=== PATIENT | male | born 1940 | race Caucasian/White ===

== ENCOUNTER → 2020-09-05 09:10 | Outpatient (BNVA) | payer OTHER, SELFPAY | PROVIDERS: Visit Provider Urology | DX: N40.1 Benign prostatic hyperplasia with lower urinary tract symptoms (principal); N13.8 Other obstructive and reflux uropathy | CPT/HCPCS: 51798 ==

== ENCOUNTER 2021-02-26 10:12 | Outpatient (REF) | payer OTHER, SELFPAY ==
[2021-02-26 11:48] LABS: PSA,Total (Free>4and<10) 3.66 ng/mL (0.00-4.00)
== END 2021-02-26 10:13 | disposition home or self-care (01) ==
LOC: HO.LAB 10:12
PROVIDERS: Visit Provider Urology
DX: Z12.5 Encounter for screening for malignant neoplasm of prostate (principal); N40.1 Benign prostatic hyperplasia with lower urinary tract symptoms; N13.8 Other obstructive and reflux uropathy
CPT/HCPCS: 36415; 84153

== ENCOUNTER → 2021-03-06 08:19 | Outpatient (BNVA) | payer OTHER, SELFPAY | PROVIDERS: Visit Provider Urology | DX: N40.1 Benign prostatic hyperplasia with lower urinary tract symptoms (principal); N13.8 Other obstructive and reflux uropathy ==

== ENCOUNTER 2021-08-27 08:19 | Outpatient (REF) | payer OTHER, SELFPAY ==
[2021-08-27 09:39] LABS: Prostate Specific Antigen 3.71 ng/mL (<0.05-4.0)
== END 2021-08-27 08:20 | disposition home or self-care (01) ==
LOC: HO.LAB 08:19
PROVIDERS: Visit Provider Urology
DX: Z12.5 Encounter for screening for malignant neoplasm of prostate (principal); N13.8 Other obstructive and reflux uropathy; N40.1 Benign prostatic hyperplasia with lower urinary tract symptoms
CPT/HCPCS: 36415; 84153

== ENCOUNTER 2021-09-03 08:45 | Outpatient (AMB) | payer OTHER, SELFPAY ==
--- NOTE | 2021-09-02 13:56 | A.OFFVIS_ITS ---
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 He is a patient of Dr. Soni. He is seen in the office today for the following urologic conditions. - lower urinary tract symptoms Lower Urinary Tract Symptoms:? Current visit is for?further evaluation of, lower urinary tract symptoms, predominate obstructive symptoms ?- father with prostate cancer.? Prior treatments include? - Had been managed for 3 years with another urologist. Treatment focused on terazosin and oxybutynin. No estimate of prostate size. Had previously been on finasteride but experienced declined libido. ?06/26 , laser procedure.? Prostate Symptom Score?02/26 , Moderate (9-19), Bother 3 ? Symptoms include?02/26 , incomplete emptying, weak stream, nocturia (>2), urgency, and are progressing.? Results from testing include? cystoscopy ?high riding bladder neck (median bar) trabeculations 03/29 ? renal/bladder us ?Yes ? date ?03/27/2017 thickend wall with trabeculations ? PVR ?26 ? prostate size ?50 ? Prior Prostate Score?unknown.? PSA?01/26 1.4 - 08/29 3.7, 03/02 3.6, 08/30 3.7 ? Prostate volume?50+gm.? Testing at next visit will include?bladder scan.? Treatment plan?Continue with surveillance. [facility] Medical History (Updated 07/12/23 @ 11:35 by Adriana Armstrong PA-C) Elevated PSA Erectile dysfunction Feeling of incomplete bladder emptying Hypertension Nocturia Post-void dribbling Weak urinary stream Surgical History Hx of arthroscopy of right knee Hx of colonoscopy Hx of inguinal hernia repair Family History Father Prostate cancer Social History Household Members: Friend(s) Housing: Apartment Alcohol intake: current Alcohol intake frequency: a few times a month Patient Tobacco Use Status: Former Tobacco user e-Cigarette/Vaping Use: Never Used service: No Current occupational status: retired Cognitive needs: No Hearing needs: No Vision needs: No Review of Systems Const Denies chills and Denies fever(s) Card Reports no additional complaints and Denies syncope Resp Denies cough GI Denies abdominal pain and Denies heartburn Reports as per HPI and Denies change in libido Neuro Denies syncope Psych Denies change in libido Endo Denies change in libido Physical Exam Const General: cooperative, healthy appearing, comfortable and no acute distress Orientation/consciousness: patient oriented x3 HEENT Face and sinus: Yes normal facial exam Mouth: moist mucous membranes Neck Neck: Yes normal visual inspection, Yes full ROM and Yes trachea midline Chest Chest palpation & inspection: normal inspection of the chest Resp Effort & Inspection: normal respiratory effort, able to speak in complete sentences and no respiratory distress GI Inspection: Yes normal to inspection Back/Spine/Pelvis Cervical Spine: normal cervical lordosis Thoracic/Lumbar Spine: thoracic and lumbar spine normal to inspection Skin General skin exam: no rashes or lesions noted Neuro General: patient oriented x3, gait normal, tone normal and moves all extremities Extrem General: Yes normal to inspection and Yes capillary refill normal Office Procedures Post Void Residual Post Residual Void Post Void Residual (PVR): 0 [id number] Void Residual by ultrasound Results AMB Urinalysis, Automated UA Leukoctes 0 Pawan/uL Last Edit by KERI Moura on 09/03/21 09:19 UA Nitrite Negative Last Edit by KERI Moura on 09/03/21 09:19 UA Urobilinogen 0.2 mg/dL Last Edit by Unique Gilbert, RMA on 09/03/21 09:1 9 UA Protein 15 mg/dL Last Edit by Unique Gilbert, RMA on 09/03/21 09:19 UA pH 6.0 Last Edit by Unique Gilbert, RMA on 09/03/21 09:19 UA Blood 10 Damien/uL Last Edit by Unique Gilbert, RMA on 09/03/21 09:19 UA Specific [place] 1.020 Last Edit by Unique Gilbert, RMA on 09/03/21 09: 19 UA Ketone Negative Last Edit by Unique Gilbert, RMA on 09/03/21 09:19 UA Bilirubin 0 mg/dL Last Edit by Unique Gilbert, RMA on 09/03/21 09:19 UA Glucose 250 mg/dL Last Edit by Unique Gilbert, RMA on 09/03/21 09:19 Results Reviewed Results Reviewed: Laboratory Last Values Urine pH (Auto) 6.0 09/03/21 09:18 Specific [place] (Auto) 1.020 09/03/21 09:18 Urine Protein (Auto) 15 mg/dL 09/03/21 09:18 Glucose (UA)(Auto) 250 mg/dL 09/03/21 09:18 Urine Ketones (Auto) Negative 09/03/21 09:18 Urine Blood (Auto) 10 Damien/uL 09/03/21 09:18 Urine Nitrite (Auto) Negative 09/03/21 09:18 Urine Bilirubin (Auto) 0 mg/dL 09/03/21 09:18 Urine Urobilinogen (Auto) 0.2 mg/dL 09/03/21 09:18 Leukocyte Esterase (Auto) 0 Pawan/uL 09/03/21 09:18 Assessment & Plan Assessment & Plan (1) Elevated PSA: Code(s): R97.20 - Elevated prostate specific antigen [PSA] (2) BPH loc w urin obs/LUTS: Code(s): N40.1 - Benign prostatic hyperplasia with lower urinary tract symptoms Plan Twelve month follow-up Orders: Orders AMB Urinalysis Automated 09/03/21 Z13.9 - Encounter for screening, unspecified, N40.1 - Benign prostatic hyperplasia with lower urinary tract symptoms AMB Post Void Residual by ultrasound 09/03/21 N40.1 - Benign prostatic hyperplasia with lower urinary tract symptoms Patient Instructions: Imaging studies, laboratory and physical exam results were discussed and reviewed in detail. No major barriers to patient understanding were identified. An opportunity to ask questions regarding the treatment plan was provided. All questions were answered. The patient expressed understanding and agreement with the above treatment plan. The patient is aware they should contact our office by phone for worsening of their current condition or the appearance of new urologic symptoms. Compliance is encouraged with any medications and followup testing that is ordered. It is a privilege to participate in the urologic care of your patient. If you have any questions or concerns regarding treatment for the above conditions, or other urologic issues, please do not hesitate to contact me. The office telephone contact is [phone]. This note is constructed using voice recognition software. While every effort has been made to ensure accuracy toys inspector errors may have been included. Yours sincerely, Dr Osvaldo De La Rosa MD, NADIA [facility] - Urology Providers of Expert, Compassionate Care for the Genitourinary System Coding Level of Care Code Est Pt Level 4 (72545) Diagnoses Elevated PSA R97.20 BPH loc w urin obs/LUTS N40.1 CPT Codes Post Residual Void - PVR CPT Code: 14343-Yuhh Void Residual by ultrasound ([id number])
== END 2021-09-03 09:48 | disposition home or self-care (01) ==
LOC: HO.HUSH 08:45
PROVIDERS: Visit Provider Urology
DX: R97.20 Elevated prostate specific antigen [PSA] (principal); N40.1 Benign prostatic hyperplasia with lower urinary tract symptoms
CPT/HCPCS: 99213

== ENCOUNTER → 2021-09-03 08:45 | Outpatient (BNVA) | payer OTHER, SELFPAY | PROVIDERS: Visit Provider Urology | DX: N40.1 Benign prostatic hyperplasia with lower urinary tract symptoms (principal); R97.20 Elevated prostate specific antigen [PSA] | CPT/HCPCS: 51798 ==

== ENCOUNTER 2021-11-25 09:32 | Outpatient (REF) | payer OTHER, SELFPAY ==
[2021-11-25 11:25] LABS: MANUAL DIFF FLAG NO
[2021-11-25 11:48] LABS: Basophils Percent Auto 0.4 % (0-2); Eosinophils Absolute Auto 0.1 X10*3/uL (0.0-0.4); Eosinophils Percent Auto 1.2 % (0-4); Hematocrit 38.5 % (42.0-52.0); Hemoglobin 12.9 g/dl (14.0-18.0); Imm Gran Abs Auto 0.03 X10*3/uL (0.00-0.03); Imm Gran Pct Auto 0.3 % (0.0-0.4); Lymphocytes Absolute Auto 1.9 X10*3/uL (1.2-4.9); Lymphocytes Percent Auto 21.4 % (20-40); Mean Corpuscular HGB Conc 33.5 g/dl (31.0-36.0); Mean Corpuscular Volume 92.5 fL (80.0-98.0); Mean Platelet Volume 10.3 fL (9.4-12.4); Monocytes Absolute Auto 0.8 X10*3/uL (0.1-1.2); Neutrophils Absolute Auto 6.1 x10*3/uL (2.0-8.3); Neutrophils Percent Auto 67.7 % (45-73); Platelet Count 216 X10*3/uL (160-400); Red Blood Count 4.16 X10*6/uL (4.60-5.80); Red Cell Distribution Width 12.9 % (11.0-16.0); White Blood Count 9.1 X10*3/uL (4.8-10.8)
[2021-11-25 12:25] LABS: TSH reflex Free T4 0.77 uIU/mL (0.32-4.0)
[2021-11-25 12:50] LABS: Alanine Aminotransferase 22 U/L (0-40); Albumin Level 4.5 g/dL (3.5-5.0); Alkaline Phosphatase 76 U/L (39-117); Anion Gap 16 (12-20); Aspartate Amino Transferase 28 U/L (5-37); Blood Urea Nitrogen 19 mg/dL (9-16); Calcium 9.4 mg/dL (8.4-10.2); Carbon Dioxide 21 mmol/L (22-29); Chloride 103 mmol/L (96-108); Cholesterol 138 mg/dL; Estimated Glomerular Filt Rate 53; Glucose Fasting 125 mg/dL (60-99); HDL Cholesterol 61 mg/dL; LDL Cholesterol Calculated 62 mg/dl; Potassium 4.4 mmol/L (3.3-5.1); Sodium 136 mmol/L (135-145); Total Protein 7.5 g/dL (6.5-8.0); Triglycerides 77 mg/dL
[2021-11-25 12:51] LABS: Estimated Average Glucose 114 mg/dL; Hemoglobin A1c % 5.6 %
[2021-12-03 12:23] LABS: PSA, Ultra Sensitive 4.78 ng/mL
== END 2021-11-25 09:33 | disposition home or self-care (01) ==
LOC: HO.WFDLDS 09:32
PROVIDERS: Visit Provider Nurse Practitioner Family
DX: Z12.5 Encounter for screening for malignant neoplasm of prostate (principal); N40.1 Benign prostatic hyperplasia with lower urinary tract symptoms; R53.83 Other fatigue
CPT/HCPCS: 36415; 80053; 80061; 83036; 84153; 84443; 85025

== ENCOUNTER 2021-11-29 07:38 | Outpatient (REF) | payer OTHER, SELFPAY ==
[2021-11-29 11:36] LABS: Immature Retic Fraction 3.2 % (2.3-13.4); Retic HGB Equivalent 36.7 pg (30.0-35.0); Reticulocyte Percent 1.1 % (0.5-1.8); Reticulocytes Absolute 0.045 X10*6/uL (0.026-0.095)
[2021-11-29 12:23] LABS: Iron 122 mcg/dL (45-160); Percent Iron Saturation 43 % (15-50); Total Iron Binding Capacity 282 mcg/dL (228-428); Unsaturated Iron Binding 160 ug/dL
[2021-11-29 12:32] LABS: Ferritin 352 ng/mL (20-250)
== END 2021-11-29 07:39 | disposition home or self-care (01) ==
LOC: HO.WFDLDS 07:38
PROVIDERS: Visit Provider Nurse Practitioner Family
DX: R53.83 Other fatigue (principal)
CPT/HCPCS: 36415; 82728; 83540; 85045

== ENCOUNTER 2021-12-02 07:35 | Outpatient (REF) | payer OTHER, SELFPAY ==
[2021-12-02 12:33] LABS: Vitamin D 25-OH Total 31.5 ng/mL (>30)
[2021-12-02 12:42] LABS: Folate 11.9 ng/mL (> or = 4.0); Vitamin B12 392 pg/mL (200-900)
== END 2021-12-02 07:36 | disposition home or self-care (01) ==
LOC: HO.WFDLDS 07:35
PROVIDERS: Visit Provider Nurse Practitioner Family
DX: R53.83 Other fatigue (principal); D64.9 Anemia, unspecified
CPT/HCPCS: 36415; 82306; 82607; 82746

== ENCOUNTER → 2022-02-05 10:26 | Outpatient (BNVA) | payer OTHER, SELFPAY | PROVIDERS: PCP Nurse Practitioner Family; Referring Provider Nurse Practitioner Family; Visit Provider Internal Medicine | DX: R53.83 Other fatigue (principal) ==

== ENCOUNTER → 2022-02-17 10:10 | Outpatient (REF) | payer OTHER, SELFPAY ==
--- NOTE | 2022-02-17 10:18 | HM_ITS ---
* Total monitoring time about 3 days. * Underlying rhythm is atrial fibrillation. Average ventricular rate 63/Min. Range 41 to 115/Min. * Rare PVCs, minimal burden. * No significant pauses or AV blocks. * Shortness of breath, tiredness correlates with atrial fibrillation. MTDD
[2022-02-17 11:02] LABS: Hemoglobin 14.2 g/dl (14.0-18.0); Mean Corpuscular HGB Conc 32.3 g/dl (31.0-36.0); Mean Corpuscular Hemoglobin 29.8 pg (27.0-33.0); Mean Corpuscular Volume 92.4 fL (80.0-98.0); Mean Platelet Volume 9.8 fL (9.4-12.4); Platelet Count 216 X10*3/uL (160-400); Red Blood Count 4.76 X10*6/uL (4.60-5.80); Red Cell Distribution Width 13.3 % (11.0-16.0); White Blood Count 9.2 X10*3/uL (4.8-10.8)
[2022-02-17 11:36] LABS: Alanine Aminotransferase 19 U/L (0-40); Albumin Level 4.6 g/dL (3.5-5.0); Alkaline Phosphatase 68 U/L (39-117); Anion Gap 15 (12-20); Aspartate Amino Transferase 24 U/L (5-37); Bilirubin Total 1.5 mg/dL (0.0-1.0); Blood Urea Nitrogen 17 mg/dL (9-16); Calcium 9.6 mg/dL (8.4-10.2); Carbon Dioxide 22 mmol/L (22-29); Chloride 104 mmol/L (96-108); Cholesterol 153 mg/dL; Estimated Glomerular Filt Rate 50; Glucose Fasting 115 mg/dL (60-99); HDL Cholesterol 59 mg/dL; LDL Cholesterol Calculated 75 mg/dl; Potassium 4.9 mmol/L (3.3-5.1); Sodium 136 mmol/L (135-145); Total Protein 7.6 g/dL (6.5-8.0); Triglycerides 99 mg/dL
== END ==
LOC: HO.CARD 10:10
PROVIDERS: Nurse Practitioner Family; Visit Provider Internal Medicine
DX: R00.2 Palpitations (principal); R53.83 Other fatigue; D64.9 Anemia, unspecified; E78.00 Pure hypercholesterolemia, unspecified; I10 Essential (primary) hypertension
CPT/HCPCS: 36415; 80053; 80061; 85027; 93242

== ENCOUNTER 2022-04-29 15:09 | Outpatient (REF) | payer OTHER, SELFPAY ==
[2022-04-30 13:11] LABS: Influenza A PCR NEGATIVE (Negative); Influenza B PCR NEGATIVE (Negative); Resp Syncy Virus RNA Qual PCR NEGATIVE (Negative); SARS COV2 PCR INHOUSE NEGATIVE (Negative)
== END 2022-04-29 15:10 | disposition home or self-care (01) ==
LOC: HO.LNP 15:09
PROVIDERS: Visit Provider Nurse Practitioner Family
DX: Z20.822 Contact with and (suspected) exposure to COVID-19 (principal); R05.9 Cough, unspecified
CPT/HCPCS: 0241U

== ENCOUNTER → 2022-05-06 12:17 | Outpatient (BNVA) | payer OTHER, SELFPAY | PROVIDERS: PCP Nurse Practitioner Family; Visit Provider Internal Medicine | DX: I48.19 Other persistent atrial fibrillation (principal); I10 Essential (primary) hypertension; R94.39 Abnormal result of other cardiovascular function study; R53.83 Other fatigue | CPT/HCPCS: 93005 ==

== ENCOUNTER 2022-07-02 08:12 | Outpatient (REF) | payer OTHER, SELFPAY ==
[2022-07-02 11:40] LABS: Glucose Fasting 109 mg/dL (60-99)
== END 2022-07-02 08:13 | disposition home or self-care (01) ==
LOC: HO.WFDLDS 08:12
PROVIDERS: Visit Provider Nurse Practitioner Family
DX: R73.01 Impaired fasting glucose (principal)
CPT/HCPCS: 36415; 82947

== ENCOUNTER → 2022-07-29 11:36 | Outpatient (BNVA) | payer OTHER, SELFPAY | PROVIDERS: PCP Nurse Practitioner Family; Visit Provider Physician Assistant ==

== ENCOUNTER 2022-07-29 12:18 | Outpatient (REF) | payer OTHER, SELFPAY ==
[2022-07-29 14:06] LABS: MANUAL DIFF FLAG NO
[2022-07-29 14:22] LABS: Basophils Percent Auto 0.5 % (0-2); Eosinophils Absolute Auto 0.1 X10*3/uL (0.0-0.4); Hematocrit 40.1 % (42.0-52.0); Hemoglobin 13.2 g/dl (14.0-18.0); Imm Gran Abs Auto 0.03 X10*3/uL (0.00-0.03); Imm Gran Pct Auto 0.4 % (0.0-0.4); Lymphocytes Absolute Auto 2.1 X10*3/uL (1.2-4.9); Lymphocytes Percent Auto 26.7 % (20-40); Mean Corpuscular HGB Conc 32.9 g/dl (31.0-36.0); Mean Corpuscular Hemoglobin 30.7 pg (27.0-33.0); Mean Corpuscular Volume 93.3 fL (80.0-98.0); Mean Platelet Volume 10.1 fL (9.4-12.4); Monocytes Absolute Auto 0.8 X10*3/uL (0.1-1.2); Monocytes Percent Auto 10.6 % (2-11); Neutrophils Absolute Auto 4.7 x10*3/uL (2.0-8.3); Neutrophils Percent Auto 60.8 % (45-73); Platelet Count 185 X10*3/uL (160-400); White Blood Count 7.7 X10*3/uL (4.8-10.8)
[2022-07-29 15:00] LABS: Erythrocyte Sedimentation Rate 3 MM/HR (0-15)
[2022-07-29 16:00] LABS: Alanine Aminotransferase 24 U/L (0-40); Albumin Level 4.3 g/dL (3.5-5.0); Alkaline Phosphatase 75 U/L (39-117); Anion Gap 11 (12-20); Aspartate Amino Transferase 26 U/L (5-37); Bilirubin Total 1.6 mg/dL (0.0-1.0); Blood Urea Nitrogen 16 mg/dL (9-16); Calcium 9.6 mg/dL (8.4-10.2); Carbon Dioxide 24 mmol/L (22-29); Chloride 106 mmol/L (96-108); Estimated Glomerular Filt Rate > 60; Glucose Random 96 mg/dL (60-115); Sodium 136 mmol/L (135-145); Total Protein 7.3 g/dL (6.5-8.0)
[2022-07-29 16:01] LABS: PSA,Total (Free>4and<10) 5.05 ng/mL (0.00-4.00); Thyroid Stimulating Hormone 1.12 uIU/mL (0.32-4.0)
[2022-07-31 14:08] LABS: Transglutaminase IgA <1.0 U/mL
[2022-08-03 14:33] LABS: Endomysial IgA Antibody Negative (Negative)
[2022-08-04 12:09] LABS: Free Prostate Spec Ag 1.7 ng/mL; Percent Free Prostate Spec Ag 37 % (calc) (>25); Prostate Specific Ag Total 4.6 ng/mL (< OR = 4.0)
== END 2022-07-29 12:19 | disposition home or self-care (01) ==
LOC: HO.WFDLDS 12:18
PROVIDERS: Visit Provider Physician Assistant
DX: Z12.5 Encounter for screening for malignant neoplasm of prostate (principal); K52.9 Noninfective gastroenteritis and colitis, unspecified; R19.8 Other specified symptoms and signs involving the digestive system and abdomen; N40.1 Benign prostatic hyperplasia with lower urinary tract symptoms
CPT/HCPCS: 36415; 80053; 84153; 84154; 84443; 85025; 85652; 86140; 86231; 86364

== ENCOUNTER 2022-08-19 08:25 | Outpatient (AMB) | payer OTHER, SELFPAY ==
--- NOTE | 2022-08-19 08:50 | MHC.OFFVIS ---
Intake Vital Signs 08/19/22 08:53 Height 5 ft 8 in Weight 156 lb BMI 23.7 BP 152/82 H Blood Pressure Location Lt brachial Position Sitting Pulse 82 Intake Visit Reasons: Follow up Intake Note: Patient follow up for lab results. Patient denies any GI issues. 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 Accompanied by: Self / Same As Patient Allergies tamsulosin Allergy (Unknown, Verified 08/19/22 10:48) dizziness, weakness Medication List - Last Reconciled 08/19/22 by Adriana Armstrong PA-C amlodipine 10 mg PO DAILY apixaban (Eliquis) 5 mg PO BID atorvastatin 80 mg PO DAILY 30 days cholecalciferol (vitamin D3) 50 mcg PO DAILY donepezil 10 mg PO DAILY irbesartan 300 mg PO DAILY metoprolol succinate ER 100 mg PO DAILY psyllium husk (Metamucil) 1 tbsp PO BID 30 days HPI HPI Comments History of Present Illness Details An 82 y/o male seen with diarrhea- he has had excellent response to metamucil- n o GI complaints Appetite is good however eats less due to the heat and humidity He is anxious todays- he has been out of medication for 10 days- Taking eliquis for about 6 months- he never wants to stop- he is having some difficulty with cost Reviewed labs- mild elevation in PSA, normocytic anemia Seeing pcp today No nausea, vomiting, diarrhea, abdominal pain, hematemesis, fever or chills PFSH Medical History (Updated 08/20/22 @ 11:35 by Adriana Armstrong PA-C) Elevated PSA Erectile dysfunction Feeling of incomplete bladder emptying Hypertension Nocturia Post-void dribbling Weak urinary stream Surgical History Hx of arthroscopy of right knee Hx of colonoscopy Hx of inguinal hernia repair Family History Father Prostate cancer Social History Household Members: Friend(s) Housing: Apartment Alcohol intake: current Alcohol intake frequency: a few times a month Patient Tobacco Use Status: Former Tobacco user e-Cigarette/Vaping Use: Never Used service: No Current occupational status: retired Cognitive needs: No Hearing needs: No Vision needs: No Review of Systems Const All systems reviewed & are unremarkable except as noted in HPI and below Card Denies chest pain, Denies chest pain at rest, Denies irregular heart rhythm and Denies dyspnea Resp Denies dyspnea GI Denies abdominal pain, Denies heartburn and Denies diarrhea Physical Exam Vital Signs: Last Vital Signs Pulse 82 08/19/22 08:53 BP 152/82 H 08/19/22 08:53 BMI result Body Mass Index 23.7 Const General: cooperative, healthy appearing and no acute distress Orientation/consciousness: patient oriented x3 Limitations: no limitations Eyes Sclerae: sclerae normal Resp Effort & Inspection: normal respiratory effort and able to speak in complete sentences Auscultation: clear to auscultation bilaterally Cardio Rate: regular rate Rhythm: regular rhythm Heart sounds: S1 normal heart sound present and S2 normal heart sound present GI Palpation (GI): Soft to palpation and nontender Auscultation: normal bowel sounds Neuro General: patient oriented x3 Psych Appearance: grossly normal and well kempt Mental Status: mental status grossly normal Speech and movement: Normal speech and movement present and Clear speech present Affect: normal affect Attitude: cooperative Thought process: Normal thought process present Thought content: Normal thought content present Insight: Good insight present (Psych) Judgement: Good judgement present (Psych) Results AMB Hemoglobin A1c AMB Hemoglobin A1c 6.0 % Last Edit by Elizabeth Castillo MA on 08/19/22 11:29 Results Reviewed Results Reviewed: Labs- anemia- psa elevated Assessment & Plan Assessment & Plan (1) Frequent loose stools: Comment: Metamucil daily much improved-has been a non issue No other associated sx Discuss colonoscopy is unclear when he had 1 last, however he has been on Eliquis to maybe 6 months unclear with that as well- Typically for colonoscopy we discontinue Eliquis for 2 days due to anticipation of polypectomy ETC At this point we will hold off Had having some difficulty with cost for Eliquis reviewed this with him-so that he would qualify likely for coupon -for reduced cost reduced cost (10 dollars) Reviewed labs normocytic anemia, however has follow-up to be with PCP for hypertension, as well as Urology for mildly elevated PSA- Code(s): R19.7 - Diarrhea, unspecified Plan Hold off on colonoscopy at this point Diarrhea resolved Eliquis Patient Instructions: Very pleasant, alert 82-year-old male seen initially with diarrhea that has resolved- Continue Metamucil- Will see PCP today further discuss medications as well plan of care Encouraged to call with any questions or concerns- Coding Level of Care Code Est Pt Level 3 (51407) Diagnoses Frequent loose stools R19.7 Time Spent (min) 30
[2022-08-19 08:53] VITALS: BP 152/82; PULSE 82; BMI 23.7
== END 2022-08-19 09:40 | disposition home or self-care (01) ==
PROVIDERS: PCP Nurse Practitioner Family; Visit Provider Physician Assistant
DX: R19.7 Diarrhea, unspecified (principal)
CPT/HCPCS: 99213

== ENCOUNTER → 2022-08-19 08:25 | Outpatient (BNVA) | payer OTHER, SELFPAY | PROVIDERS: PCP Nurse Practitioner Family; Visit Provider Physician Assistant ==

== ENCOUNTER 2022-08-19 10:02 | Outpatient (AMB) | payer OTHER, SELFPAY ==
[2022-08-19 10:07] VITALS: BP 128/80; PULSE 68; RESP 12; TEMP 36.4; O2SAT 99; BMI 24.0
--- NOTE | 2022-08-19 10:07 | A.OFFPC_ITS ---
Vital Signs 08/19/22 10:07 Height 5 ft 8 in Weight 158 lb BMI 24.0 BP 128/80 Blood Pressure Location Lt brachial Position Sitting Respiration 12 Pulse 68 Pulse Source Pulse Oximeter Temp 97.6 F Temp Source Temporal Artery Scan Pulse Oximetry (%) 99 Oxygen Delivery Method Room Air Intake Visit Reasons: f/u GI symptoms Intake Note: Patient will need refills on Atorvastatin , Donepezil, and patient stated that he has been without his amlodipine, a new script will need to be sent over due t o previous prescriber passing away. 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 Accompanied by: Self / Same As Patient Allergies tamsulosin Allergy (Unknown, Verified 08/19/22 10:48) dizziness, weakness Medication List - Last Reconciled 08/19/22 by George Spring CNP amlodipine 10 mg PO DAILY apixaban (Eliquis) 5 mg PO BID atorvastatin 80 mg PO DAILY 30 days cholecalciferol (vitamin D3) 50 mcg PO DAILY donepezil 10 mg PO DAILY irbesartan 300 mg PO DAILY metoprolol succinate ER 100 mg PO DAILY psyllium husk (Metamucil) 1 tbsp PO BID 30 days Tobacco use date assessed: 04/04/22 Fall risk assessment: 2 + Falls in past year Last assessed Fall Risk: 08/19/22 Dental Screening Dental Screen Date: 08/19/22 Did you have a dental visit in the last 12 months?: Yes Did you have a dental problem in the last 6 months where you did not have access to dental care?: No Was dental information given to patient?: Patient has dentist HPI HPI Comments History of Present Illness Details 82-year-old male presents for change in bowel and decreased appetite for which he was evaluated and treated over a month ago He notes that his bowel symptoms have resolved with Metamucil He was also evaluated by Gastroenterology His reports continued decreased appetite No acute symptoms today His recent PSA is slightly elevated, 4.6. He notes he has an appointment with urology later this month. He requests refills of Donepezil, amlodipine, and atorvastatin [facility] Medical History (Updated 08/19/22 @ 11:34 by George Spring CNP) Elevated PSA Erectile dysfunction Feeling of incomplete bladder emptying Hypertension Nocturia Post-void dribbling Weak urinary stream Surgical History Hx of arthroscopy of right knee Hx of colonoscopy Hx of inguinal hernia repair Family History Father Prostate cancer Social History Household Members: Friend(s) Housing: Apartment Alcohol intake: current Alcohol intake frequency: a few times a month Patient Tobacco Use Status: Former Tobacco user e-Cigarette/Vaping Use: Never Used service: No Current occupational status: retired Cognitive needs: No Hearing needs: No Vision needs: No Review of Systems Const Details: Const Denies chills, Denies fatigue, Denies fever(s), Denies headache(s) and Denies weakness ENT Denies dizziness and Denies headache(s) Card Denies chest pain, Denies lightheadedness, Denies dyspnea and Denies other (Palpitations) Resp Denies cough, Denies dyspnea, Denies wheezing and Denies other ( shortness of breath) GI Denies abdominal pain, Denies melena, Denies hematochezia, Denies change in bowel habits, Denies dyspepsia and Denies nausea Denies hematuria and Denies dysuria Musc Denies abnormal gait, Denies myalgias, Denies arthralgias, Denies numbness and Denies tingling Skin/Breast Denies rash, Denies unusual bruising and Denies wounds Neuro Denies abnormal gait, Denies dizziness, Denies headache(s), Denies memory loss, Denies numbness, Denies Sensory deficit (Neuro), Denies tingling and Denies weakness Psych Denies anxiety and Denies depression Endo Denies fatigue Aller/Immun Denies wheezing Physical exam (Primary Care) Vital Signs: Last Vital Signs Temp 97.6 F 08/19/22 10:07 Pulse 68 08/19/22 10:07 Resp 12 08/19/22 10:07 BP 128/80 08/19/22 10:07 Pulse Ox 99 08/19/22 10:07 Oxygen Delivery Method Room Air 08/19/22 10:07 BMI result Body Mass Index 24.0 Tobacco/Smoking Status: Tobacco use Status Tobacco use date assessed 04/04/22 08/19/22 10:21 Patient Tobacco Use Status Former Tobacco user 07/11/23 10:21 e-Cigarette/Vaping Use Never Used 08/19/22 10:21 Const Other: General: no acute distress and well developed Nutritional Appearance: well nourished Orientation/consciousness: patient oriented x3 [facility] Head: Yes normocephalic and Yes atraumatic Eyes General: appearance normal, both eyes and all related structures Pupils: Equal, round and reactive pupils present EOM: EOMs intact bilaterally Resp Effort & Inspection: normal respiratory effort Auscultation: clear to auscultation bilaterally Cardio Rate: regular rate Rhythm: regular rhythm Heart sounds: S1 normal heart sound present, S2 normal heart sound present, no gallops, no murmurs and no rubs GI Palpation (GI): No Abdominal aortic bruit present, Soft to palpation, nontender, No hepatosplenomegaly present and No Rebound tenderness present Auscultation: normal bowel sounds General: Yes no CVA tenderness Back/Spine/Pelvis Back: no CVA tenderness Cervical Spine: cervical ROM normal and No Cervical spine tenderness Thoracic/Lumbar Spine: thoraco-lumbar ROM normal, No pain with thoraco-lumbar ROM, No thoracic spinal tenderness and No lumbar spinal tenderness Extrem General: Yes normal to inspection, No edema and No calf tenderness Skin General: warm and dry. Normal skin color. Normal skin turgor Lesions: no lesions Rashes: no rashes Trauma: no lacerations or abrasions Wounds: no wounds Nails: normal Neuro General: patient oriented x3, gait normal and no focal neuro deficit Cranial nerves: Yes Equal, round and reactive pupils present Cognition (Neuro): normal cognition Gait exam (Neuro): Normal gait present Motor exam (neuro): 5/5 motor strength present throughout Sensory Exam: No Sensory deficit (Neuro) Psych Affect: normal affect Results AMB Hemoglobin A1c AMB Hemoglobin A1c 6.0 % Last Edit by Elizabeth Castillo MA on 08/19/22 11:29 Assessment and Plan Assessment & Plan (1) Frequent loose stools: Comment: Two weeks loose stool, Metamucil daily much improved No other associated sx Code(s): R19.7 - Diarrhea, unspecified Plan: Resolved Continue to take Metamucil once a twice a day as needed Adequate hydration encouraged Follow-up with symptoms or concerns Verbalized understanding and agreed with treatment plan. (2) Hypertension: Code(s): I10 - Essential (primary) hypertension Plan: His blood pressure is controlled, 128/80, within goal of less than 140/90 Continue to take antihypertensives as prescribed Low-sodium diet encouraged Follow-up in 3 months or return sooner with symptoms or concerns Verbalized understanding and agreed with treatment plan. (3) Prediabetes: Code(s): R73.03 - Prediabetes Plan: Fasting blood sugar has been elevated twice A1c is 6.0% today ADA diet and routine exercise encouraged Follow-up with concerns or symptoms Verbalized understanding and agreed with treatment plan. (4) Elevated PSA: Code(s): R97.20 - Elevated prostate specific antigen [PSA] Plan: His recent PSA is slightly elevated, 4.6. He notes he has an appointment with urology later this month Follow-up with urology as planned Return with symptoms or concerns Verbalized understanding and agreed with treatment plan. (5) Colon cancer screening: Code(s): Z12.11 - Encounter for screening for malignant neoplasm of colon Plan: He reports history of normal colonoscopy. However he does not recall his last colonoscopy He notes that he was informed by GI his Eliquis would have to be held for a couple of weeks in order to have colonoscopy Cologuard ordered Follow-up with symptoms or concerns Verbalized understanding and agreed with treatment plan. Orders: Referrals Cologuard Test Z12.11 - Encounter for screening for malignant neoplasm of colon Medications: Changed From donepezil 10 mg PO DAILY To donepezil 10 mg PO DAILY 30 tabs 3RF 30 days From amlodipine 10 mg PO DAILY To amlodipine 10 mg PO DAILY 30 tabs 3RF 30 days Coding Level of Care Code Est Pt Level 3 (75994) Diagnoses Frequent loose stools R19.7 Hypertension I10 Prediabetes R73.03 Elevated PSA R97.20 Colon cancer screening Z12.11 Time Spent (min) 25
== END 2022-08-19 11:34 | disposition home or self-care (01) ==
PROVIDERS: PCP Nurse Practitioner Family; Visit Provider Nurse Practitioner Family
DX: R19.7 Diarrhea, unspecified (principal); I10 Essential (primary) hypertension; R73.03 Prediabetes; R97.20 Elevated prostate specific antigen [PSA]; Z12.11 Encounter for screening for malignant neoplasm of colon
CPT/HCPCS: 99213

== ENCOUNTER 2022-09-02 08:18 | Outpatient (REF) | payer OTHER, SELFPAY ==
[2022-09-02 17:50] LABS: Urine Cytology See Pathology rpt
== END 2022-09-02 08:19 | disposition home or self-care (01) ==
LOC: HO.LAB 08:18
PROVIDERS: Visit Provider Urology
DX: R31.29 Other microscopic hematuria (principal); R97.20 Elevated prostate specific antigen [PSA]
CPT/HCPCS: 51798; 88112

== ENCOUNTER 2022-09-02 08:18 | Outpatient (AMB) | payer OTHER, SELFPAY ==
--- NOTE | 2022-09-02 08:30 | MHC.OFFVIS ---
Intake Intake Visit Reasons: 1 year follow up PVR Intake Note: Patient is present for PVR/ Urology Med:none Antibiotic Allergy: None Blood Thinner: Eliquis PVR: 0ML Allergies tamsulosin Allergy (Unknown, Verified 09/02/22 08:30) dizziness, weakness HPI HPI Comments History of Present Illness Details Olman SALGADO is a very pleasant male. He is a patient of Dr. Soni. He is seen in the office today for the following urologic conditions. - lower urinary tract symptoms Borderline PSA BRETT 3+ normal 6 month follow-up Lower Urinary Tract Symptoms:? Current visit is for?further evaluation of, lower urinary tract symptoms, predominate obstructive symptoms ?- father with prostate cancer.? Prior treatments include? - Had been managed for 3 years with another urologist. Treatment focused on terazosin and oxybutynin. No estimate of prostate size. Had previously been on finasteride but experienced declined libido. ?06/26 , laser procedure.? Prostate Symptom Score?02/26 , Moderate (9-19), Bother 3 ? Symptoms include?02/26 , incomplete emptying, weak stream, nocturia (>2), urgency, and are progressing.? Results from testing include? cystoscopy ?high riding bladder neck (median bar) trabeculations 03/29 ? renal/bladder us ?Yes ? date ?03/27/2017 thickend wall with trabeculations ? PVR ?26 ? prostate size ?50 ? Prior Prostate Score?unknown.? PSA?01/26 1.4 - 08/29 3.7, 03/02 3.6, 08/30 3.7, 08/01 4.6 F 37% ? Prostate volume?50+gm.? Testing at next visit will include?bladder scan.? Treatment plan?Continue with surveillance. [facility] Medical History (Updated 09/02/22 @ 09:01 by Osvaldo De La Rosa MD) Elevated PSA Erectile dysfunction Feeling of incomplete bladder emptying Hypertension Nocturia Post-void dribbling Weak urinary stream Surgical History Hx of arthroscopy of right knee Hx of colonoscopy Hx of inguinal hernia repair Family History Father Prostate cancer Social History Household Members: Friend(s) Housing: Apartment Alcohol intake: current Alcohol intake frequency: a few times a month Patient Tobacco Use Status: Former Tobacco user e-Cigarette/Vaping Use: Never Used service: No Current occupational status: retired Cognitive needs: No Hearing needs: No Vision needs: No Review of Systems Const Denies chills and Denies fever(s) Card Reports no additional complaints and Denies syncope Resp Denies cough GI Denies abdominal pain and Denies heartburn Reports as per HPI and Denies change in libido Neuro Denies syncope Psych Denies change in libido Endo Denies change in libido Physical Exam Const General: cooperative, healthy appearing, comfortable and no acute distress Orientation/consciousness: patient oriented x3 HEENT Face and sinus: Yes normal facial exam Mouth: moist mucous membranes Neck Neck: Yes normal visual inspection, Yes full ROM and Yes trachea midline Chest Chest palpation & inspection: normal inspection of the chest Resp Effort & Inspection: normal respiratory effort, able to speak in complete sentences and no respiratory distress GI Inspection: Yes normal to inspection Rectal Exam - Male: Yes normal sphincter tone and Yes prostate normal Male General Exam: Yes normal external exam Penis: normal penis and circumcised Meatus: meatus normal Scrotum: scrotum normal Testes: Testes normal Back/Spine/Pelvis Cervical Spine: normal cervical lordosis Thoracic/Lumbar Spine: thoracic and lumbar spine normal to inspection Skin General skin exam: no rashes or lesions noted Neuro General: patient oriented x3, gait normal, tone normal and moves all extremities Extrem General: Yes normal to inspection and Yes capillary refill normal Office Procedures Post Void Residual Post Residual Void Post Void Residual (PVR): 0 [id number]-[id number] Void Residual by ultrasound Results AMB Urinalysis, Automated UA Leukoctes 0 Pawan/uL Last Edit by KERI Moura on 09/02/22 08:45 UA Nitrite Negative Last Edit by Unique Gilbert, RMA on 09/02/22 08:45 UA Urobilinogen 1 mg/dL Last Edit by Unique Gilbert, RMA on 09/02/22 08:45 UA Protein 30 mg/dL Last Edit by Unique Gilbert, RMA on 09/02/22 08:45 UA pH 5.5 Last Edit by Unique Gilbert, RMA on 09/02/22 08:45 UA Blood 80 Damien/uL Last Edit by Unique Gilbert, RMA on 09/02/22 08:45 UA Specific [place] 1.020 Last Edit by Unique Gilbert, A on 09/02/22 08:45 UA Ketone Negative Last Edit by Unique Gilbert, RMA on 09/02/22 08:45 UA Bilirubin 0 mg/dL Last Edit by Unique Gilbert, A on 09/02/22 08:45 UA Glucose 0 mg/dL Last Edit by Unique Gilbert, A on 09/02/22 08:45 Results Reviewed Results Reviewed: Laboratory Last Values Urine pH (Auto) 5.5 09/02/22 08:37 Specific [place] (Auto) 1.020 09/02/22 08:37 Urine Protein (Auto) 30 mg/dL 09/02/22 08:37 Glucose (UA)(Auto) 0 mg/dL 09/02/22 08:37 Urine Ketones (Auto) Negative 09/02/22 08:37 Urine Blood (Auto) 80 Damien/uL 09/02/22 08:37 Urine Nitrite (Auto) Negative 09/02/22 08:37 Urine Bilirubin (Auto) 0 mg/dL 09/02/22 08:37 Urine Urobilinogen (Auto) 1 mg/dL 09/02/22 08:37 Leukocyte Esterase (Auto) 0 Paawn/uL 09/02/22 08:37 Assessment & Plan Assessment & Plan (1) Elevated PSA: Code(s): R97.20 - Elevated prostate specific antigen [PSA] Plan Six month follow-up Orders: Orders Urine Cytology Today R31.29 - Other microscopic hematuria AMB Urinalysis Automated Today Z13.9 - Encounter for screening, unspecified AMB Post Void Residual by ultrasound Today N40.1 - Benign prostatic hyperplasia with lower urinary tract symptoms PSA,Total (Free>4and<10) 6 Months R97.20 - Elevated prostate specific antigen [PSA] Patient Instructions: Imaging studies, laboratory and physical exam results were discussed and reviewed in detail. No major barriers to patient understanding were identified. An opportunity to ask questions regarding the treatment plan was provided. All questions were answered. The patient expressed understanding and agreement with the above treatment plan. The patient is aware they should contact our office by phone for worsening of their current condition or the appearance of new urologic symptoms. Compliance is encouraged with any medications and followup testing that is ordered. It is a privilege to participate in the urologic care of your patient. If you have any questions or concerns regarding treatment for the above conditions, or other urologic issues, please do not hesitate to contact me. The office telephone contact is [phone]. This note is constructed using voice recognition software. While every effort has been made to ensure accuracy pin machine operator errors may have been included. Yours sincerely, Dr Osvaldo De La Rosa MD, NADIA [facility] Urology Providers of Expert, Compassionate Care for the Genitourinary System Coding Level of Care Code Est Pt Level 4 (85093) Diagnoses Elevated PSA R97.20 CPT Codes Post Residual Void - PVR CPT Code: 53485-Diib Void Residual by ultrasound ([id number])
== END 2022-09-02 09:01 | disposition home or self-care (01) ==
PROVIDERS: Visit Provider Urology
DX: R97.20 Elevated prostate specific antigen [PSA] (principal)
CPT/HCPCS: 99214

== ENCOUNTER 2022-11-05 07:48 | Outpatient (AMB) | payer OTHER, SELFPAY ==
[2022-11-05 08:17] VITALS: BP 142/62; PULSE 71; BMI 24.4
--- NOTE | 2022-11-05 08:17 | A.OFFVIS_ITS ---
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 Accompanied by: Self / Same As Patient Allergies tamsulosin Allergy (Unknown, Verified 11/05/22 08:19) dizziness, weakness Medication List - Last Reconciled 11/05/22 by Juan Arteaga MD amlodipine 10 mg PO DAILY 30 days apixaban (Eliquis) 5 mg PO BID atorvastatin 80 mg PO DAILY 30 days cholecalciferol (vitamin D3) 50 mcg PO DAILY donepezil 10 mg PO DAILY 30 days irbesartan 300 mg PO DAILY 30 days metoprolol succinate ER 100 mg PO DAILY 30 days psyllium husk (Metamucil) 1 tbsp PO BID 30 days HPI HPI Comments History of Present Illness Details Akil returns for follow-up regarding atrial fibrillation. Main complaint still remains just feeling tired and nonspecific symptoms like lack of energy extra. He also has other symptoms like cough, urinary incontinence, diarrhea among others. Apparently, had a flu recently and symptoms are worse after that. Otherwise, no known coronary disease, myocardial infarction or cardiomyopathy. He was apparently worked up for Parkinson's but according to patient he does not have that diagnosis. [facility] Medical History (Updated 11/05/22 @ 08:37 by Juan Arteaga MD) Hypertension Erectile dysfunction Feeling of incomplete bladder emptying Post-void dribbling Weak urinary stream Nocturia Elevated PSA Surgical History Hx of inguinal hernia repair Hx of arthroscopy of right knee Hx of colonoscopy Family History Father Prostate cancer Social History Household Members: Friend(s) Housing: Apartment Alcohol intake: current Alcohol intake frequency: a few times a month Patient Tobacco Use Status: Former Tobacco user e-Cigarette/Vaping Use: Never Used service: No Current occupational status: retired Cognitive needs: No Hearing needs: No Vision needs: No Review of Systems Const Denies weakness ENT Denies dizziness Card Denies chest pain, Denies chest pain with activity, Denies syncope, Denies rapid heart rate, Denies pedal edema, Denies edema, Denies leg edema, Denies lightheadedness, Denies palpitations, Denies dyspnea, Denies dyspnea on exertion and Denies orthopnea Resp Denies cough, Denies dyspnea and Denies dyspnea on exertion GI Denies hematochezia and Denies change in stool character Musc Denies abnormal gait, Denies muscle cramps, Denies muscle weakness, Denies numbness, Denies radiating pain into limb and Denies tingling Neuro Denies abnormal gait, Denies dizziness, Denies syncope, Denies numbness, Denies tingling and Denies weakness Endo Denies palpitations Physical Exam Vital Signs: Last Vital Signs Pulse 71 11/05/22 08:17 BP 142/62 H 11/05/22 08:17 BMI result Body Mass Index 24.4 Const General: comfortable and no acute distress Orientation/consciousness: patient oriented x3 HEENT Other: Unremarkable Head: Yes normal to inspection Neck Neck: Yes normal visual inspection Chest Chest palpation & inspection: normal inspection of the chest Resp Auscultation: clear to auscultation bilaterally Cardio Palpation: normal PMI Heart sounds: S1 normal heart sound present, S2 normal heart sound present, no gallops, no murmurs and no rubs GI Palpation (GI): Soft to palpation Back/Spine/Pelvis Other: unremarkable Skin General skin exam: no rashes or lesions noted Neuro General: patient oriented x3 Extrem General: Yes normal to inspection Psych Mental Status: mental status grossly normal Office Procedures EKG Details: EKG with atrial fibrillation at a rate of 59/Min cannot exclude old anteroseptal infarct but could be from body habitus and lead placement. [id number], Complete Assessment & Plan Assessment & Plan (1) Persistent atrial fibrillation: Code(s): I48.19 - Other persistent atrial fibrillation (2) Hypertension: Code(s): I10 - Essential (primary) hypertension Qualifiers: Hypertension type: primary hypertension Qualified Code(s): I10 - Essential (primary) hypertension (3) Fatigue: Code(s): R53.83 - Other fatigue Qualifiers: Fatigue type: chronic, unspecified Qualified Code(s): R53.82 - Chronic fatigue, unspecified Plan Cardiac studies reviewed. Per [facility] discharge summary, echocardiogram was done at [facility] and that showed preserved LVEF, no wall motion abnormalities, no valvular issues or other concerns. Myocardial perfusion imaging study from [facility], April 2021 showed inferior perfusion defect thought to be from either diaphragmatic attenuation; could not exclude small area of ischemia. Holter performed here shows rate controlled atrial fibrillation. Today's EKG also shows atrial fibrillation. Previous EKG from [facility] had shown sinus bradycardia at 54/Min. His symptoms are extremely nonspecific and out of proportion to atrial fibrillation. Atrial fibrillation certainly can play some role but doubt if it is the entire picture. Especially concerns like cough and urinary incontinence are certainly not related to atrial fibrillation. There is also concern about cognitive impairment and that may also play some role. We again discussed about cardioversion, but at this time, we decided that we will just cut back on the beta-georgina dosing and see how he does. If continued symptoms, then possibly attempt cardioversion, but more than likely will need use an antiarrhythmic like Multaq or amiodarone which in turn can also cause tiredness and other side effects. Otherwise, blood pressure medication can be continued without changes. Follow-up in 4 months. Medications: New metoprolol succinate ER (Toprol XL) 50 mg PO DAILY 90 tabs 3RF Discontinued metoprolol succinate ER Discontinued Reason: Doctor's Order 100 mg PO DAILY 30 days 30 tabs 3RF Coding Level of Care Code Est Pt Level 4 (58169) Diagnoses Persistent atrial fibrillation I48.19 Primary hypertension I10 Hypertension type: primary hypertension Chronic fatigue R53.82 Fatigue type: chronic, unspecified CPT Codes EKG - CPT: 21009-[id number], Complete ([id number])
== END 2022-11-05 08:41 | disposition home or self-care (01) ==
PROVIDERS: Visit Provider Internal Medicine
DX: I48.19 Other persistent atrial fibrillation (principal); I10 Essential (primary) hypertension; R53.82 Chronic fatigue, unspecified
CPT/HCPCS: 93010; 99214

== ENCOUNTER → 2022-11-05 07:48 | Outpatient (BNVA) | payer OTHER, SELFPAY | PROVIDERS: Visit Provider Internal Medicine | DX: I48.19 Other persistent atrial fibrillation (principal); I10 Essential (primary) hypertension | CPT/HCPCS: 93005 ==

== ENCOUNTER 2022-11-19 08:46 | Outpatient (AMB) | payer OTHER, SELFPAY ==
--- NOTE | 2022-11-19 08:54 | MHC.PC.OV ---
Vital Signs 11/19/22 09:04 11/19/22 09:20 Height 5 ft 8 in Weight 158 lb 2 oz BMI 24.0 BP 116/58 L 124/64 Blood Pressure Location Lt brachial Lt brachial Position Sitting Sitting Respiration 14 Pulse 57 Pulse Source Pulse Oximeter Temp 98.9 F Temp Source Oral Pulse Oximetry (%) 99 Oxygen Delivery Method Room Air Intake Visit Reasons: 3 mos health maintenance Intake Note: Patient reports he is here for a follow up appointment with concerns for constant running nose, cough, and coughing up mucous. 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 Accompanied by: Self / Same As Patient Allergies tamsulosin Allergy (Unknown, Verified 11/19/22 09:07) dizziness, weakness Medication List - Last Reconciled 11/19/22 by George Spring CNP amlodipine 10 mg PO DAILY 90 days apixaban (Eliquis) 5 mg PO BID atorvastatin 80 mg PO DAILY 30 days cholecalciferol (vitamin D3) 50 mcg PO DAILY donepezil 10 mg PO DAILY 30 days irbesartan 300 mg PO DAILY 90 days metoprolol succinate ER (Toprol XL) 50 mg PO DAILY psyllium husk (Metamucil) 1 tbsp PO BID 30 days Tobacco use date assessed: 04/04/22 Fall risk assessment: No Falls in past year Dental Screening Dental Screen Date: 11/19/22 Did you have a dental visit in the last 12 months?: Yes Did you have a dental problem in the last 6 months where you did not have access to dental care?: No Was dental information given to patient?: Patient has dentist HPI HPI Comments History of Present Illness Details 82-year-old male presents for health maintenance. His last office visit was 3 months ago. He has past medical history significant for prediabetes, hypertension, AFib, normochromic normocytic anemia, hypercholesterolemia, elevated PSA, and BPH. Reports persistent runny nose with associated intermittent cough with clear phlegm. He notes that his symptoms have been ongoing for the past 6 months. Has not taking any medication for symptoms. He admits to adequate hydration. He denies fever, chills, body aches, fatigue, or weakness. He denies sick contact. He denies wheezing. He denies smoking cigarette. He is followed by [facility] urology and cardiology. [facility] Medical History Hypertension Erectile dysfunction Feeling of incomplete bladder emptying Post-void dribbling Weak urinary stream Nocturia Elevated PSA Surgical History Hx of inguinal hernia repair Hx of arthroscopy of right knee Hx of colonoscopy Family History Father Prostate cancer Social History Household Members: Friend(s) Housing: Apartment Alcohol intake: current Alcohol intake frequency: a few times a month Patient Tobacco Use Status: Former Tobacco user e-Cigarette/Vaping Use: Never Used service: No Current occupational status: retired Cognitive needs: No Hearing needs: No Vision needs: No Review of Systems Const Details: Const Denies chills, Denies fatigue, Denies fever(s), Denies headache(s) and Denies weakness ENT Reports runny nose, Denies dizziness and Denies headache(s) Card Denies chest pain, Denies lightheadedness, Denies dyspnea and Denies other (Palpitations) Resp Reports cough, Denies dyspnea, Denies wheezing and Denies other ( shortness of breath) GI Denies abdominal pain, Denies melena, Denies hematochezia, Denies change in bowel habits, Denies dyspepsia and Denies nausea Denies hematuria and Denies dysuria Musc Denies abnormal gait, Denies myalgias, Denies arthralgias, Denies numbness and Denies tingling Skin/Breast Denies rash, Denies unusual bruising and Denies wounds Neuro Denies abnormal gait, Denies dizziness, Denies headache(s), Denies memory loss, Denies numbness, Denies Sensory deficit (Neuro), Denies tingling and Denies weakness Psych Denies anxiety, Denies depression, Denies memory loss Endo Denies cold intolerance, Denies fatigue, Denies heat intolerance, Denies polydipsia and Denies polyuria Aller/Immun Denies wheezing Physical exam (Primary Care) Vital Signs: Last Vital Signs Temp 98.9 F 11/19/22 09:04 Pulse 57 11/19/22 09:04 Resp 14 11/19/22 09:04 BP 124/64 11/19/22 09:20 Pulse Ox 99 11/19/22 09:04 Oxygen Delivery Method Room Air 11/19/22 09:04 BMI result Body Mass Index 24.0 Tobacco/Smoking Status: Tobacco use Status Tobacco use date assessed 04/04/22 11/19/22 08:56 Patient Tobacco Use Status Former Tobacco user 11/19/22 08:56 e-Cigarette/Vaping Use Never Used 11/19/22 08:56 Const Other: General: no acute distress and well developed Nutritional Appearance: well nourished Orientation/consciousness: patient oriented x3 HENMT Head: Yes normocephalic and Yes atraumatic Eyes General: appearance normal, both eyes and all related structures Pupils: Equal, round and reactive pupils present EOM: EOMs intact bilaterally Resp Effort & Inspection: normal respiratory effort Auscultation: clear to auscultation bilaterally Cardio Rate: regular rate Rhythm: regular rhythm Heart sounds: S1 normal heart sound present, S2 normal heart sound present, no gallops, no murmurs and no rubs GI Palpation (GI): No Abdominal aortic bruit present, Soft to palpation, nontender, No hepatosplenomegaly present and No Rebound tenderness present Auscultation: normal bowel sounds General: Yes no CVA tenderness Back/Spine/Pelvis Back: no CVA tenderness Cervical Spine: cervical ROM normal and No Cervical spine tenderness Thoracic/Lumbar Spine: thoraco-lumbar ROM normal, No pain with thoraco-lumbar ROM, No thoracic spinal tenderness and No lumbar spinal tenderness Extrem General: Yes normal to inspection, No edema and No calf tenderness Skin General: warm and dry. Normal skin color. Normal skin turgor Lesions: no lesions Rashes: no rashes Trauma: no lacerations or abrasions Wounds: no wounds Nails: normal Neuro General: patient oriented x3, gait normal and no focal neuro deficit Cranial nerves: Yes Equal, round and reactive pupils present Cognition (Neuro): normal cognition Gait exam (Neuro): Normal gait present Sensory Exam: No Sensory deficit (Neuro) Psych Appearance: grossly normal Affect: normal affect Attitude: cooperative Thought process: Normal thought process present Assessment and Plan Assessment & Plan (1) Cough: Code(s): R05.9 - Cough, unspecified Qualifiers: Cough type: chronic Qualified Code(s): R05.3 - Chronic cough Plan: Likely allergies viral though possibly viral. No exam evidence of bacterial infection Viral illness There is no antibiotic medication for viruses.? They must run their course.? Most average 5-7 days but 7-10 days is not uncommon and up to 14 days is still possible.? A cough is often the last symptom to resolve and this can last for weeks in some cases. Rest Hydrate well -? Drink plenty of fluids.? Especially water. Tylenol or ibuprofen for muscle aches, headache, fever/discomfort Zyrtec and benzonatate as prescribed Chest x-ray ordered Return for new or worsening symptoms Verbalized understanding and agreed with treatment plan. (2) Runny nose: Code(s): R09.89 - Other specified symptoms and signs involving the circulatory and respiratory systems Plan: As above (3) Hypertension: Code(s): I10 - Essential (primary) hypertension Qualifiers: Hypertension type: primary hypertension Qualified Code(s): I10 - Essential (primary) hypertension Plan: His blood pressure is 124/64, within goal of less than 130/80. Continue with current treatment regimen. Low sodium diet encouraged. Will continue to monitor. Advise to follow up in 1 month for a complete physical exam or return sooner with symptoms or concerns. Verbalized understanding and agreed with the treatement plan. (4) Kidney disease: Code(s): N28.9 - Disorder of kidney and ureter, unspecified Plan: He was referred to Dr. Guzman, nephrology in March for elevated creatinine and low GFR. However, our medical terminologist was informed today that the patient's last appointment with him was in 2016. He is GFR and creatinine levels normalized in July. Will continue to monitor and referred to Nephrology as needed. Orders: Orders Lipid Panel Today Z00.00 - Encounter for general adult medical examination without abnormal findings XR chest 2V Today Z00.00 - Encounter for general adult medical examination without abnormal findings Basic Metabolic Panel Today Z00.00 - Encounter for general adult medical examination without abnormal findings Medications: New cetirizine (Zyrtec) 10 mg PO DAILY 30 tabs 3RF 30 days benzonatate 200 mg PO BID PRN 20 caps 1RF cough Coding Level of Care Code Est Pt Level 4 (36728) Diagnoses Chronic cough R05.3 Cough type: chronic Runny nose R09.89 Primary hypertension I10 Hypertension type: primary hypertension Kidney disease N28.9
[2022-11-19 09:04] VITALS: BP 116/58; PULSE 57; RESP 14; TEMP 37.2; O2SAT 99; BMI 24.0
[2022-11-19 09:20] VITALS: BP 124/64
== END 2022-11-19 09:40 | disposition home or self-care (01) ==
PROVIDERS: PCP Nurse Practitioner Family; Visit Provider Nurse Practitioner Family
DX: R05.3 Chronic cough (principal); R09.89 Other specified symptoms and signs involving the circulatory and respiratory systems; I10 Essential (primary) hypertension; N28.9 Disorder of kidney and ureter, unspecified
CPT/HCPCS: 99214

== ENCOUNTER 2022-11-24 09:15 | Outpatient (REF) | payer OTHER, SELFPAY ==
--- NOTE | ~2022-11-24 | XR_ITS ---
EXAMINATION: XR CHEST CLINICAL INFORMATION: Encounter for general adult medical exam without abnormality COMPARISON: December 10, 2020 TECHNIQUE: 2 views of the chest were obtained. FINDINGS: There is no gross pneumothorax. Heart size is normal. No pleural effusion. Hazy opacity overlying lower thoracic spine on the lateral view could be related to consolidation/pneumonia or other pathology. Degenerative changes in the thoracic spine. XR/XR chest 2V IMPRESSION: Hazy opacity overlying lower thoracic spine on the lateral view could be related to consolidation/pneumonia or other pathology. Recommend follow-up imaging in 4-6 weeks to confirm resolution and exclude underlying pathology. This study was presented today November 26, 2022 at 6:50 AM for interpretation. PSA staff will provide results to referring provider at this time.
== END 2022-11-24 09:16 | disposition home or self-care (01) ==
LOC: HO.XRAY 09:15
PROVIDERS: PCP Nurse Practitioner Family; Visit Provider Nurse Practitioner Family
DX: Z00.00 Encounter for general adult medical examination without abnormal findings (principal); M47.814 Spondylosis without myelopathy or radiculopathy, thoracic region
CPT/HCPCS: 71046

== ENCOUNTER 2022-12-26 08:10 | Outpatient (AMB) | payer OTHER, SELFPAY ==
--- NOTE | 2022-12-26 08:22 | A.OFFPC_ITS ---
Vital Signs 12/26/22 08:29 12/26/22 09:17 Height 5 ft 8 in Weight 160 lb BMI 24.3 BP 140/60 H 140/70 H Blood Pressure Location Rt brachial Lt brachial Position Sitting Respiration 14 Pulse 76 Pulse Source Pulse Oximeter Pulse Oximetry (%) 99 Oxygen Delivery Method Room Air Intake Visit Reasons: CPE Intake Note: Patient is here for a physical. Patient's last physical was on 11/25/2021. Patient reports he has had a rash all over his body for 6-8 weeks. Patient reports he went to the vein access technician and has tried Rashida and a cream applied twice daily. Patient also followed recommendations for laundry detergent and body soap as well to help clear. Patient reports he is not clearing from this rash, the rash is extremely itchy and he is not sleeping well because of it. Aquatic Performer Required: No Accompanied by: Self / Same As Patient Allergies tamsulosin Allergy (Unknown, Verified 12/26/22 08:34) dizziness, weakness Tobacco use date assessed: 12/26/22 Fall risk assessment: 1 Fall in past year (patient reports sometimes he trips.) Last assessed Fall Risk: 12/26/22 Dental Screening Dental Screen Date: 12/26/22 Did you have a dental visit in the last 12 months?: Yes Did you have a dental problem in the last 6 months where you did not have access to dental care?: No Was dental information given to patient?: Patient has dentist HPI HPI Comments History of Present Illness Details 82-year-old male presents for an extende d physical exam. He has past medical history significant for prediabetes, hypertension, AFib, normochromic normocytic anemia, hypercholesterolemia, elevated PSA, and BPH. He admits to taking his medications as prescribed. He was evaluated by [facility] on 09/25/2022. His symptoms were attributed to mild neural cognitive disorder and underlying anxiety and depression. The following recommendations were made: Treat underlying anxiety and depression; psychotherapy and psychiatry consultation; behavioral Health as a bridge while waiting for psychotherapy and psychiatry provider; speech therapy is also recommended for expressive language difficulties, however, it is noted that it is important to treat underlying anxiety and depression before initiating speech therapy; orthopedic referral is also recommended for walking and bending evaluation which may be related to lower back issues; modify outdoor activities; and increase social and cognitive activities through [facility]. He has a follow-up with neuropsych in 18 months. He reports generalized rash for the past 2-3 months. He was seen my dermatology 9 days ago and was told he has dry skin. He was advised to take rashida daily and use cetaphil lotion. He has been complying with the treatment plan without relief. He notes he was advised to follow up in 2 weeks. Patient notes that i've been anxious my whole life, i'm not depressed. I'm just pissed off about things, the news. He is also worry that his financial analysis consultant who lives may relocate to [place] and he is unsure of where he would live. He notes that neuropsych prescribed escitalopram a month ago. He states that he does not feel an changes of his symptoms on the medication. He reports pain to his lower back with walking and bending. He reports associated shuffling gait. Parkinson's disease was recently ruled out by brenton hummel. His symptoms have been ongoing for the past 6 months and have progressively gotten worse. No tingling, numbness, or loss of sensation. He denies fall, injury, or trauma. [facility] Medical History Hypertension Erectile dysfunction Feeling of incomplete bladder emptying Post-void dribbling Weak urinary stream Nocturia Elevated PSA Surgical History Hx of inguinal hernia repair Hx of arthroscopy of right knee Hx of colonoscopy Family History Father Prostate cancer Social History (Updated 12/26/22 @ 08:40 by Lili Wild CMA) Household Members: Friend(s) Housing: Apartment Alcohol intake: current Alcohol intake frequency: holidays/special occasions only Patient Tobacco Use Status: Former Tobacco user e-Cigarette/Vaping Use: Never Used service: No Current occupational status: retired Current occupational exposures/hazards: No Sexual orientation: Unable to collect Gender identity: Unable to collect Cognitive needs: No Hearing needs: No Vision needs: No Questionnaire PHQ-9 Over the last 2 weeks, how often have you been bothered by any of the following problems? 1. Little interest or pleasure in doing things: not at all 2. Feeling down, depressed, or hopeless: several days 3. Trouble falling or staying asleep, or sleeping too much: nearly every day 4. Feeling tired or having little energy: nearly every day 5. Poor appetite or overeating: nearly every day 6. Feeling bad about yourself - or that you are a failure or have let yourself or your family down: nearly every day 7. Trouble concentrating on things, such as reading the newspaper or watching television: not at all 8. Moving or speaking so slowly that other people could have noticed. Or the opposite - being so fidgety or restless that you have been moving around a lot more than usual: not at all 9. Thoughts that you would be better off or of hurting yourself in some way: not at all Total score: 13 Depression Screening Interpretation: Positive Depression Screening Follow-up: In treatment Depression Screening Done: Yes 47195 - PHQ-9 Billing: Yes Source: Developed by Drs. Domo Mckinley, Cindi Mcfadden, Randy Sotelo and colleagues, with an educational petey from [employer]. Thrive Questionnaire Date Thrive assessed: 12/26/22 I am a: Patient What is your living situation today?: I have a steady place to live Within the past 12 months, did the food you bought not last and you didn't have the money to get more?: Never true Within the past 12 months, did you worry whether your food would run out before you got money to buy more?: Never true Do you have trouble paying for medicines?: No Do you have trouble getting transportation to medical appointments?: No Do you have trouble paying your heating and electricity bill?: No Do you have trouble taking care of your child, family member or friend?: No Do you have trouble with day-to-day activities such as bathing, preparing meals, shopping, managing finances, etc.?: No Are you currently unemployed and looking for a job?: No Are you interested in more education?: No Please select the resources that you would like help with: None Currently or been in a relationship where the following occur: no concerns reported AUDIT C Alcohol Use Questionnaire (AUDIT-C) 1. How often do you have a drink containing alcohol?: Monthly or less 2. How many drinks containing alcohol do you have on a typical day when you are drinking?: 1 or 2 3. How often do you have six or more drinks on one occasion?: Never Total Score: 1 CORBIN-7 AMB Questionnaire CORBIN-7 Date CORBIN - 7 assessed: 12/26/22 Feeling nervous, anxious, or on edge: 0 = Not at all Not being able to stop or control worryin = Nearly every day Worrying too much about different things: 3 = Nearly every day Trouble relaxin = Nearly every day Being so restless that it is hard to sit still: 0 = Not at all Becoming easily annoyed or irritable: 3 = Nearly every day Feeling afraid as if something awful might happen: 3 = Nearly every day Total CORBIN-7 score (0-4 normal; 5-9 mild; 10-14 moderate; 15-21 severe): 15 Source: Developed by Drs. Domo Mckinley, Cindi Mcfadden, Randy Sotelo and colleagues, with an educational petey from [employer]. CORBIN-7 Assessment Billing CORBIN-7 Assessment Tool: CORBIN-7 Assessment 03930 Review of Systems Const Details: Const Denies chills, Denies fatigue, Denies fever(s), Denies headache(s) and Denies weakness ENT Denies dizziness and Denies headache(s) Card Denies chest pain, Denies lightheadedness, Denies dyspnea and Denies other (Palpitations) Resp Denies cough, Denies dyspnea, Denies wheezing and Denies other ( shortness of breath) GI Denies abdominal pain, Denies melena, Denies hematochezia, Denies change in bowel habits, Denies dyspepsia and Denies nausea Denies hematuria and Denies dysuria Musc Reports as per HPI Skin/Breast Reports as per HPI Neuro Denies abnormal gait, Denies dizziness, Denies headache(s), Denies memory loss, Denies numbness, Denies Sensory deficit (Neuro), Denies tingling and Denies weakness Psych Reports anxiety, Denies depression, Denies memory loss Endo Denies cold intolerance, Denies fatigue, Denies heat intolerance, Denies polydipsia and Denies polyuria Aller/Immun Denies wheezing Physical exam (Primary Care) Vital Signs: Last Vital Signs Pulse 76 12/26/22 08:29 Resp 14 12/26/22 08:29 BP 140/70 H 12/26/22 09:17 Pulse Ox 99 12/26/22 08:29 Oxygen Delivery Method Room Air 12/26/22 08:29 BMI result Body Mass Index 24.3 Tobacco/Smoking Status: Tobacco use Status Tobacco use date assessed 12/26/22 12/26/22 08:40 Patient Tobacco Use Status Former Tobacco user 12/26/22 08:40 e-Cigarette/Vaping Use Never Used 12/26/22 08:40 PHQ-9: PHQ-9 Score PHQ-9: Total score 13 12/26/22 09:26 Depression Screening Interpretation: Positive Depression Screening Follow-up: In treatment Thrive Assessment: Date of Thrive Assessment Date Thrive assessed 12/26/22 12/26/22 08:40 Currently or been in a relationship where the following occur: no concerns reported Const Other: General: no acute distress and well developed Nutritional Appearance: well nourished Orientation/consciousness: patient oriented x3 HENMT Head: Yes normocephalic and Yes atraumatic Eyes General: appearance normal, both eyes and all related structures Pupils: Equal, round and reactive pupils present EOM: EOMs intact bilaterally Resp Effort & Inspection: normal respiratory effort Auscultation: clear to auscultation bilaterally Cardio Rate: regular rate Rhythm: regular rhythm Heart sounds: S1 normal heart sound present, S2 normal heart sound present, no gallops, no murmurs and no rubs GI Palpation (GI): No Abdominal aortic bruit present, Soft to palpation, nontender, No hepatosplenomegaly present and No Rebound tenderness present Auscultation: normal bowel sounds General: Yes no CVA tenderness Back/Spine/Pelvis Back: no CVA tenderness Cervical Spine: cervical ROM normal and No Cervical spine tenderness Thoracic/Lumbar Spine: thoraco-lumbar ROM normal, No pain with thoraco-lumbar ROM, No thoracic spinal tenderness and No lumbar spinal tenderness Extrem General: Yes normal to inspection, No edema and No calf tenderness Skin General: warm and dry. Normal skin color. Normal skin turgor Lesions: no lesions Rashes: Slightly red, nonraised rash with scab to the core noted to his trunk and extremities Trauma: no lacerations or abrasions Wounds: no wounds Nails: normal Neuro General: patient oriented x3, gait normal and no focal neuro deficit Cranial nerves: Yes Equal, round and reactive pupils present Cognition (Neuro): normal cognition Gait exam (Neuro): Normal gait present Sensory Exam: No Sensory deficit (Neuro) Psych Appearance: grossly normal Affect: normal affect Attitude: cooperative Thought process: Normal thought process present Assessment and Plan Assessment & Plan (1) Anxiety and depression: Code(s): F41.9 - Anxiety disorder, unspecified; F32.A - Depression, unspecified Plan: PHQ-9 and CORBIN-7 scores revealed moderate depression and severe anxiety respectively Reports history of chronic anxiety. Denies depression Declines psychotherapy or Psychiatry referral He was prescribed escitalopram 5 mg a month ago by neuropsych. His symptoms have not improved Patient advised to stop taking escitalopram due to possible QT prolongation when taken with donepezil and given the his history of AFib Sertraline ordered. Take as prescribed Routine exercise encouraged Follow-up in 1 month or return sooner with worsening or new symptoms Verbalized understanding and agreed with treatment plan. Extended physical exam deferred at this time. May be able to get physical done next month. (2) Hypertension: Code(s): I10 - Essential (primary) hypertension Qualifiers: Hypertension type: primary hypertension Qualified Code(s): I10 - Essential (primary) hypertension Plan: Resting blood pressure is 140/70, above goal of less than 130/80 He notes that he has not taking his antihypertensive today; this may explain his current blood pressure reading Anxiety may also be a contributing factor Continue with current treatment regimen Low-sodium diet encouraged Follow-up in 1 month Verbalized understanding and agreed with treatment plan. (3) Generalized rash: Code(s): R21 - Rash and other nonspecific skin eruption Plan: Reports generalized rash which was evaluated by Dermatology 9 days ago Current treatment, Rashida and cetaphil lotion not providing relief Slightly red, nonraised rash with scab to the core noted to his trunk and extremities; likely an allergic response. Patient notably scratching his body for significant period Prednisone ordered. Take as prescribed Continue to take Rashida and use Cetaphil lotion as instructed Follow-up with Dermatology as planned Return with worsening or new symptoms Verbalized understanding and agreed with treatment plan. (4) Chronic low back pain: Code(s): M54.50 - Low back pain, unspecified; G89.29 - Other chronic pain Plan: Reports chronic back pain with bending forward and walking; associated shuffling gait Parkinson's disease was recently ruled out by neuropsych Referred to Ortho May take Tylenol as needed for pain or discomfort Warm/cool compresses encouraged Return with worsening or new symptoms Verbalized understanding and agreed with treatment plan. Orders: Referrals Orthopedics Referral G89.29 - Other chronic pain, M54.50 - Low back pain, unspecified Medications: New prednisone 40 mg (2 x 20 mg) PO DAILY 5 days 10 tabs 0RF sertraline 25 mg PO DAILY 30 days 30 tabs 2RF Coding Level of Care Code Est Pt Level 4 (58447) Diagnoses Anxiety and depression F41.9; F32.A Primary hypertension I10 Hypertension type: primary hypertension Generalized rash R21 Chronic low back pain M54.50; G89.29 Additional Codes CORBIN-7 Assessment Billing - CORBIN-7 Assessment Tool: CORBIN-7 Assessment 41411 ([id number])
[2022-12-26 08:29] VITALS: BP 140/60; PULSE 76; RESP 14; O2SAT 99; BMI 24.3
[2022-12-26 09:17] VITALS: BP 140/70
== END 2022-12-26 09:42 | disposition home or self-care (01) ==
PROVIDERS: PCP Nurse Practitioner Family; Visit Provider Nurse Practitioner Family
DX: I10 Essential (primary) hypertension (principal); R21 Rash and other nonspecific skin eruption; M54.50 Low back pain, unspecified; G89.29 Other chronic pain; F41.9 Anxiety disorder, unspecified; F32.A Depression, unspecified
CPT/HCPCS: 96127; 99214

== ENCOUNTER 2023-01-12 09:59 | Outpatient (REF) | payer OTHER, SELFPAY ==
[2023-01-12 10:09] LABS: MANUAL DIFF FLAG NO
[2023-01-12 10:32] LABS: Basophils Percent Auto 0.1 % (0-2); Eosinophils Percent Auto 0.1 % (0-4); Hematocrit 38.7 % (42.0-52.0); Hemoglobin 12.7 g/dl (14.0-18.0); Imm Gran Abs Auto 0.05 X10*3/uL (0.00-0.03); Imm Gran Pct Auto 0.4 % (0.0-0.4); Lymphocytes Absolute Auto 1.6 X10*3/uL (1.2-4.9); Lymphocytes Percent Auto 12.6 % (20-40); Mean Corpuscular HGB Conc 32.8 g/dl (31.0-36.0); Mean Corpuscular Volume 94.4 fL (80.0-98.0); Monocytes Absolute Auto 1.3 X10*3/uL (0.1-1.2); Monocytes Percent Auto 10.1 % (2-11); Neutrophils Absolute Auto 9.6 x10*3/uL (2.0-8.3); Neutrophils Percent Auto 76.7 % (45-73); Platelet Count 180 X10*3/uL (160-400); Red Cell Distribution Width 14.5 % (11.0-16.0); White Blood Count 12.5 X10*3/uL (4.8-10.8)
[2023-01-12 11:02] LABS: Alanine Aminotransferase 37 U/L (0-40); Alkaline Phosphatase 88 U/L (39-117); Anion Gap 11 (12-20); Aspartate Amino Transferase 31 U/L (5-37); Bilirubin Total 0.7 mg/dL (0.0-1.0); Blood Urea Nitrogen 30 mg/dL (9-16); Calcium 9.2 mg/dL (8.4-10.2); Carbon Dioxide 22 mmol/L (22-29); Chloride 110 mmol/L (96-108); Estimated Glomerular Filt Rate > 60; Glucose Random 127 mg/dL (60-115); Sodium 139 mmol/L (135-145); Total Protein 7.2 g/dL (6.5-8.0)
== END 2023-01-12 10:00 | disposition home or self-care (01) ==
LOC: HO.LAB 09:59
PROVIDERS: PCP Nurse Practitioner Family; Visit Provider Dermatology
DX: T88.7XXA Unspecified adverse effect of drug or medicament, initial encounter (principal)
CPT/HCPCS: 36415; 80053; 85025

== ENCOUNTER 2023-01-30 10:32 | Outpatient (AMB) | payer OTHER, SELFPAY ==
[2023-01-30 10:38] VITALS: BP 134/74; PULSE 54; RESP 13; TEMP 36.5; O2SAT 99; BMI 26.0
--- NOTE | 2023-01-30 10:38 | A.OFFPC_ITS ---
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 Control Assistant Required: No Accompanied by: Self / Same As Patient Allergies tamsulosin Allergy (Unknown, Verified 01/30/23 11:10) dizziness, weakness Medication List - Last Reconciled 01/30/23 by George Spring CNP amlodipine 10 mg PO DAILY 90 days apixaban (Eliquis) 5 mg PO BID atorvastatin 80 mg PO DAILY 90 days cetirizine (Zyrtec) 10 mg PO DAILY 30 days cholecalciferol (vitamin D3) 50 mcg PO DAILY donepezil 10 mg PO DAILY 30 days irbesartan 300 mg PO DAILY 90 days metoprolol succinate ER (Toprol XL) 50 mg PO DAILY psyllium husk (Metamucil) 1 tbsp PO BID 30 days sertraline 25 mg PO DAILY 30 days Tobacco use date assessed: 12/26/22 Fall risk assessment: 2 + Falls in past year Last assessed Fall Risk: 01/30/23 Dental Screening Dental Screen Date: 01/30/23 Did you have a dental visit in the last 12 months?: No Did you have a dental problem in the last 6 months where you did not have access to dental care?: No Was dental information given to patient?: Patient has dentist HPI HPI Comments History of Present Illness Details 82-year-old male presents for hypertensi on, anxiety, and depression follow-up He admits to taking his medications as prescribed without adverse reactions He notes that he regained his energy 2 weeks ago He notes that he has been anxious my whole life. Reading and watching sports keeps me going. He offers no complaints and denies acute symptoms at this time He notes that he was seen by lead c developer who prescribed p.o. dexamethasone for rash to his trunk and extremities. The rash has completely resolved COUNT INCLUDES THE [facility] Medical History Hypertension Erectile dysfunction Feeling of incomplete bladder emptying Post-void dribbling Weak urinary stream Nocturia Elevated PSA Surgical History Hx of inguinal hernia repair Hx of arthroscopy of right knee Hx of colonoscopy Family History Father Prostate cancer Social History Household Members: Friend(s) Housing: Apartment Alcohol intake: current Alcohol intake frequency: holidays/special occasions only Patient Tobacco Use Status: Former Tobacco user e-Cigarette/Vaping Use: Never Used service: No Current occupational status: retired Current occupational exposures/hazards: No Sexual orientation: Unable to collect Gender identity: Unable to collect Cognitive needs: No Hearing needs: Yes Vision needs: No Questionnaire PHQ-9 Over the last 2 weeks, how often have you been bothered by any of the following problems? 1. Little interest or pleasure in doing things: not at all 2. Feeling down, depressed, or hopeless: nearly every day 3. Trouble falling or staying asleep, or sleeping too much: not at all 4. Feeling tired or having little energy: not at all 5. Poor appetite or overeating: nearly every day 6. Feeling bad about yourself - or that you are a failure or have let yourself or your family down: nearly every day 7. Trouble concentrating on things, such as reading the newspaper or watching television: not at all 8. Moving or speaking so slowly that other people could have noticed. Or the opposite - being so fidgety or restless that you have been moving around a lot more than usual: not at all 9. Thoughts that you would be better off or of hurting yourself in some way: not at all Total score: 9 Depression Screening Interpretation: Positive Depression Screening Follow-up: Existing condition and In treatment Depression Screening Done: Yes 56540 - PHQ-9 Billing: Yes Source: Developed by Drs. Domo Mckinley, Cindi Mcfadden, Randy Sotelo and colleagues, with an educational petey from [employer]. Thrive Questionnaire Date Thrive assessed: 12/26/22 CORBIN-7 AMB Questionnaire CORBIN-7 Date CORBIN - 7 assessed: 01/30/23 Feeling nervous, anxious, or on edge: 3 = Nearly every day Not being able to stop or control worryin = Nearly every day Worrying too much about different things: 3 = Nearly every day Trouble relaxin = Nearly every day Being so restless that it is hard to sit still: 0 = Not at all Becoming easily annoyed or irritable: 3 = Nearly every day Feeling afraid as if something awful might happen: 2 = More than half the days Total CORBIN-7 score (0-4 normal; 5-9 mild; 10-14 moderate; 15-21 severe): 17 Source: Developed by Drs. Domo Mckinley, Cindi Mcfadden, Randy Sotelo and colleagues, with an educational petey from [employer]. CORBIN-7 Assessment Billing CORBIN-7 Assessment Tool: CORBIN-7 Assessment 80493 Review of Systems Const Details: Denies chills, Denies fatigue, Denies fever(s), Denies headache(s) and Denies weakness HEENT Denies change in vision, Denies dizziness, Denies headache(s), Denies hearing loss, Denies nasal congestion, Denies sinus pain, Denies sinus pressure and Denies sore throat Card Denies chest pain, Denies lightheadedness, Denies dyspnea and Denies other (palpitations) Resp Denies cough, Denies dyspnea and Denies wheezing GI Denies abdominal pain, Denies melena, Denies hematochezia, Denies change in blayne wel habits, Denies dyspepsia and Denies nausea Denies hematuria and Denies dysuria Musc Denies abnormal gait, Denies myalgias, Denies arthralgias, Denies numbness and Denies tingling Skin/Breast Denies rash, Denies unusual bruising and Denies wounds Neuro Denies abnormal gait, Denies dizziness, Denies headache(s), Denies memory loss, Denies numbness, Denies Sensory deficit (Neuro), Denies tingling and Denies weakness Psych Denies anxiety, Denies depression and Denies memory loss Endo Denies cold intolerance, Denies fatigue, Denies heat intolerance, Denies polydipsia and Denies polyuria Rigo/Lymph Denies easy bleeding and Denies easy bruising Aller/Immun Denies wheezing Physical exam (Primary Care) Vital Signs: Last Vital Signs Temp 97.7 F 01/30/23 10:38 Pulse 54 01/30/23 10:38 Resp 13 01/30/23 10:38 BP 134/74 01/30/23 10:38 Pulse Ox 99 01/30/23 10:38 Oxygen Delivery Method Room Air 01/30/23 10:38 BMI result Body Mass Index 26.0 Tobacco/Smoking Status: Tobacco use Status Tobacco use date assessed 12/26/22 01/30/23 10:53 Patient Tobacco Use Status Former Tobacco user 01/30/23 10:53 e-Cigarette/Vaping Use Never Used 01/30/23 10:53 PHQ-9: PHQ-9 Score PHQ-9: Total score 9 01/30/23 10:53 Depression Screening Interpretation: Positive Depression Screening Follow-up: Existing condition and In treatment Thrive Assessment: Date of Thrive Assessment Date Thrive assessed 12/26/22 01/30/23 10:53 Const Other: General: no acute distress, well developed, alert and awake Nutritional Appearance: well nourished Orientation/consciousness: patient oriented x3 HENMT Head: Yes normocephalic and Yes atraumatic Ears: hearing grossly normal bilaterally and TM's normal bilaterally General nose exam: Normal external nose present and Normal nares present Mouth: Normal oral and palatal mucosa present and moist mucous membranes Teeth and gingiva: dentition normal Throat: Yes oropharynx normal Eyes Pupils: Equal, round and reactive pupils present and Pupil accommodation reflex normal EOM: EOMs intact bilaterally Neck Neck: Yes normal visual inspection, Yes no lymphadenopathy and Yes trachea midline Thyroid: Thyroid normal Carotids: no bruits Lymphatic: no lymphadenopathy noted Chest Chest palpation & inspection: normal inspection of the chest Resp Effort & Inspection: normal respiratory effort Auscultation: clear to auscultation bilaterally Cardio Rate: regular rate Rhythm: regular rhythm Heart sounds: S1 normal heart sound present, S2 normal heart sound present, no gallops, no murmurs and no rubs Bruits: no abdominal aortic bruits and no carotid bruits GI Palpation (GI): No Abdominal aortic bruit present, Soft to palpation, nontender, No hepatosplenomegaly present and No Rebound tenderness present Auscultation: normal bowel sounds General: Yes no CVA tenderness Back/Spine/Pelvis Back: no CVA tenderness Cervical Spine: cervical ROM normal and No Cervical spine tenderness Thoracic/Lumbar Spine: thoraco-lumbar ROM normal, No pain with thoraco-lumbar ROM, No thoracic spinal tenderness and No lumbar spinal tenderness Skin General: warm and dry. Normal skin color. Normal skin turgor Lesions: no lesions Rashes: no rashes Trauma: no lacerations or abrasions Wounds: no wounds Nails: normal Neuro General: patient oriented x3, gait normal and CN's II-XI intact bilaterally Cranial nerves: Yes Equal, round and reactive pupils present Cognition (Neuro): normal cognition Gait exam (Neuro): Normal gait present Motor exam (neuro): 5/5 motor strength present throughout Sensory Exam: No Sensory deficit (Neuro) Deep tendon reflexes (DTR's): Right patellar reflex intensity grade: 2+ and Left patellar reflex intensity grade: 2+ Extrem General: Yes normal to inspection, No edema and No calf tenderness Psych Appearance: grossly normal Affect: normal affect Attitude: cooperative Thought process: Normal thought process present Assessment and Plan Assessment & Plan (1) Normal routine physical examination: Code(s): Z00.00 - Encounter for general adult medical examination without abnormal findings Plan: No significant physical restrictions or limitations noted Continue current treatment regimen Follow-up in 6 weeks for anxiety and depression Return sooner with worsening or new symptoms Verbalized understanding and agreed with treatment plan (2) Hypertension: Code(s): I10 - Essential (primary) hypertension Qualifiers: Hypertension type: primary hypertension Qualified Code(s): I10 - Essential (primary) hypertension Plan: Resting blood pressure is 130/60, within goal of less than 140 over Continue current treatment regimen Low-sodium diet encouraged Will continue to monitor Verbalized understanding and agreed with treatment (3) Anxiety and depression: Code(s): F41.9 - Anxiety disorder, unspecified; F32.A - Depression, unspecified Plan: PHQ-9 and CORBIN-7 scores revealed mild depression and severe anxiety respectively He notes he has been anxious ?my whole life. His symptoms by reading and watching sports Encouraged to continue reading and watch sports Will increase sertraline to 50 mg daily. Take as prescribed Continue to take donepezil as prescribed Routine exercise encouraged Follow-up in 6 weeks or return sooner with worsening or new symptoms Verbalized understanding and agreed with treatment Medications: New sertraline 50 mg PO DAILY 30 days 30 tabs 3RF Discontinued sertraline Discontinued Reason: Doctor's Order 25 mg PO DAILY 30 days 30 tabs 2RF Coding Level of Care Code Est Pt Prev Care >65y(53211) Diagnoses Normal routine physical examination Z00.00 Primary hypertension I10 Hypertension type: primary hypertension Anxiety and depression F41.9; F32.A Additional Codes CORBIN-7 Assessment Billing - CORBIN-7 Assessment Tool: CORBIN-7 Assessment 96115 ([id number])
[2023-01-30 11:18] VITALS: BP 130/60
== END 2023-01-30 11:40 | disposition home or self-care (01) ==
PROVIDERS: PCP Nurse Practitioner Family; Visit Provider Nurse Practitioner Family
DX: Z00.00 Encounter for general adult medical examination without abnormal findings (principal); I10 Essential (primary) hypertension; F41.9 Anxiety disorder, unspecified; F32.A Depression, unspecified
CPT/HCPCS: 96127; 99397

== ENCOUNTER 2023-02-19 11:04 | Outpatient (AMB) | payer OTHER, SELFPAY ==
--- NOTE | 2023-02-19 11:31 | MHC.OFFVIS ---
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 No hx of pain medication. bending down and gets a sharp pain, also when he is walking. Pain stays in that area. Allergies tamsulosin Allergy (Unknown, Verified 02/19/23 12:43) dizziness, weakness Medication List - Last Reconciled 02/19/23 by Fatuma Harris MD amlodipine 10 mg PO DAILY 90 days apixaban (Eliquis) 5 mg PO BID atenolol 50 mg PO DAILY atorvastatin 80 mg PO DAILY 90 days cetirizine (Zyrtec) 10 mg PO DAILY 30 days cholecalciferol (vitamin D3) 50 mcg PO DAILY donepezil 10 mg PO DAILY 30 days irbesartan 300 mg PO DAILY 90 days psyllium husk (Metamucil) 1 tbsp PO BID 30 days sertraline 50 mg PO DAILY 30 days HPI HPI Comments History of Present Illness Details About 1-2 years of soreness, every time when he bends forward, worse when he gets up. Points to lower back. When he sits down, it goes away. He has started shuffling on gait and walking worsens pain. I saw on medical records that he was worked up for Parkinsons but was not diagnosed with it. He says he does have memory deficits. Denies claudication. No radiation to legs. No associated numbness on feet. He urinary incontinence, follows urology. He also had bowel incontinence, resolved with metamucil. History of atrial fib, prostrate. 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 Denies any sports injury. [facility] Medical History Hypertension Erectile dysfunction Feeling of incomplete bladder emptying Post-void dribbling Weak urinary stream Nocturia Elevated PSA Surgical History Hx of inguinal hernia repair Hx of arthroscopy of right knee Hx of colonoscopy Family History Father Prostate cancer Social History Household Members: Friend(s) Housing: Apartment Alcohol intake: current Alcohol intake frequency: holidays/special occasions only Patient Tobacco Use Status: Former Tobacco user e-Cigarette/Vaping Use: Never Used service: No Current occupational status: retired Current occupational exposures/hazards: No Sexual orientation: Unable to collect Gender identity: Unable to collect Cognitive needs: No Hearing needs: Yes Vision needs: No Review of Systems Const All systems reviewed & are unremarkable except as noted in HPI and below Physical Exam Constitutional: Patient appears to be in no acute distress, well nourished and well developed. Patient was appropriately conversant and oriented. Good historian. MSK: He stands stooped forward posture. No tenderness on SI joint, GT, paraspinals, spinous processes. Straight-leg raising test negative. Shuffling gait slow. Strength is 5/5 in all muscle groups tested. No increased tone noted. Neurological: Neurologic examination of the upper and lower extremities was nonfocal with intact sensation, muscle stretch reflexes and without focal motor deficits . Tovar?s negative bilaterally. Babinski was down going bilaterally. Clonus was negative. Results Reviewed Results Reviewed: I independently reviewed the results of the following: Lumbar x-rays done in the office showed anterior endplate spurs, decreased disc space L5-S1 L4-5, await final reading. I reviewed records from the following: Planning Supervisor Assessment & Plan Assessment & Plan (1) Myofascial pain: Code(s): M79.18 - Myalgia, other site (2) Lumbar spondylosis: Code(s): M47.816 - Spondylosis without myelopathy or radiculopathy, lumbar region Plan 82-year-old, complaining of soreness only when bending forward. No red flags or neurological deficits on exam. Denies radiculopathy or claudication symptoms. He does have a shuffling gait but previous workup for Parkinson's were reportedly negative. Suspect myofascial tightness. In addition, lumbar x-rays show degenerative changes. Discussed possibility of PT but then we agreed that he will do home exercises instead. Gave him a list of exercises/stretching safe to do at home. Will keep close eye on him, make sure he does not develop any red flags. No indication for further imaging, unless he develops any worsening of symptoms. Assessment and plan discussed with patient, and patient was agreeable. All questions were answered thoroughly. Follow-up 3 months. Fatuma Harris MD, NADIA Board Certified, [place] [employer] and [employer] (ABPMR) Board Certified, [place] [employer] (ABEM) Orders: Orders XR lumbar spine 2-3V Today M54.9 - Dorsalgia, unspecified Coding Level of Care Code New Pt Level 4 (28699) Diagnoses Myofascial pain M79.18 Lumbar spondylosis M47.816
== END 2023-02-19 12:13 | disposition home or self-care (01) ==
PROVIDERS: PCP Nurse Practitioner Family; Visit Provider Physical Medicine & Rehabilitation
DX: M79.18 Myalgia, other site (principal); M47.816 Spondylosis without myelopathy or radiculopathy, lumbar region
CPT/HCPCS: 99204

== ENCOUNTER 2023-02-19 12:22 | Outpatient (AMB) | payer OTHER, SELFPAY ==
--- NOTE | 2023-02-19 12:41 | MHC.OFFVIS ---
Intake Vital Signs 02/19/23 12:42 Height 5 ft 8 in Weight 163 lb 2.273 oz BMI 24.8 BP 110/54 L Blood Pressure Location Lt brachial Position Sitting Pulse 86 Intake Visit Reasons: 4 month follow up Intake Note: 4 month follow up Ad Operations Specialist Required: No Accompanied by: Self / Same As Patient Allergies tamsulosin Allergy (Unknown, Verified 02/19/23 12:43) dizziness, weakness Medication List - Last Reconciled 02/19/23 by Juan Arteaga MD amlodipine 10 mg PO DAILY 90 days apixaban (Eliquis) 5 mg PO BID atorvastatin 80 mg PO DAILY 90 days cetirizine (Zyrtec) 10 mg PO DAILY 30 days cholecalciferol (vitamin D3) 50 mcg PO DAILY donepezil 10 mg PO DAILY 30 days irbesartan 300 mg PO DAILY 90 days metoprolol succinate ER (Toprol XL) 50 mg PO DAILY psyllium husk (Metamucil) 1 tbsp PO BID 30 days sertraline 50 mg PO DAILY 30 days HPI HPI Comments History of Present Illness Details Akil returns for follow-up regarding atrial fibrillation. He does not really have any overt symptoms like chest pain or shortness of breath or anything else along those lines. He was complaining of lot of tiredness in the past and then we cut back on the beta-blockers. He states he is feeling better from that and. Otherwise, no known coronary disease myocardial infarction or cardiomyopathy. He also has ongoing memory issues and some cognitive decline. [facility] Medical History Hypertension Erectile dysfunction Feeling of incomplete bladder emptying Post-void dribbling Weak urinary stream Nocturia Elevated PSA Surgical History Hx of inguinal hernia repair Hx of arthroscopy of right knee Hx of colonoscopy Family History Father Prostate cancer Social History Household Members: Friend(s) Housing: Apartment Alcohol intake: current Alcohol intake frequency: holidays/special occasions only Patient Tobacco Use Status: Former Tobacco user e-Cigarette/Vaping Use: Never Used service: No Current occupational status: retired Current occupational exposures/hazards: No Sexual orientation: Unable to collect Gender identity: Unable to collect Cognitive needs: No Hearing needs: Yes Vision needs: No Review of Systems Const Denies weakness ENT Denies dizziness Card Denies chest pain, Denies chest pain with activity, Denies syncope, Denies rapid heart rate, Denies pedal edema, Denies edema, Denies leg edema, Denies lightheadedness, Denies palpitations and Denies orthopnea Resp Denies cough GI Denies hematochezia and Denies change in stool character Musc Denies abnormal gait, Denies muscle cramps, Denies muscle weakness, Denies numbness, Denies radiating pain into limb and Denies tingling Neuro Denies abnormal gait, Denies dizziness, Denies syncope, Denies numbness, Denies tingling and Denies weakness Endo Denies palpitations Physical Exam Vital Signs: Last Vital Signs Pulse 86 02/19/23 12:42 BP 110/54 L 02/19/23 12:42 BMI result Body Mass Index 24.8 Const General: comfortable and no acute distress Orientation/consciousness: patient oriented x3 HEENT Other: Unremarkable Head: Yes normal to inspection Neck Neck: Yes normal visual inspection Chest Chest palpation & inspection: normal inspection of the chest Resp Auscultation: clear to auscultation bilaterally Cardio Palpation: normal PMI Heart sounds: S1 normal heart sound present, S2 normal heart sound present, no gallops, no murmurs and no rubs GI Palpation (GI): Soft to palpation Back/Spine/Pelvis Other: unremarkable Skin General skin exam: no rashes or lesions noted Neuro General: patient oriented x3 Extrem General: Yes normal to inspection Psych Mental Status: mental status grossly normal Assessment & Plan Assessment & Plan (1) Persistent atrial fibrillation: Code(s): I48.19 - Other persistent atrial fibrillation (2) Hypertension: Code(s): I10 - Essential (primary) hypertension Qualifiers: Hypertension type: primary hypertension Qualified Code(s): I10 - Essential (primary) hypertension (3) Fatigue: Code(s): R53.83 - Other fatigue Qualifiers: Fatigue type: chronic, unspecified Qualified Code(s): R53.82 - Chronic fatigue, unspecified Plan Cardiac studies reviewed. [place] [facility] [place] was done at [facility] and that showed preserved LVEF, no wall motion abnormalities, no valvular issues or other concerns. Myocardial perfusion imaging study from [facility], April 2021 showed inferior perfusion defect thought to be from either diaphragmatic attenuation; could not exclude small area of ischemia. Holter performed here shows rate controlled atrial fibrillation. Today's EKG also shows atrial fibrillation. Previous EKG from [facility] had shown sinus bradycardia at 54/Min. As he reports improvement in tiredness after cutting back on beta-blockers, we can probably switch him from metoprolol to atenolol which may be of some help. Lot of tiredness symptoms could also be related to the cognitive impairment. Otherwise, continue anticoagulation without changes. Blood pressure stable on the current regimen. Follow-up in 6 months with another Holter. Orders: Orders ECG 3 day holter monitor 6 Months I48.19 - Other persistent atrial fibrillation Medications: New atenolol 50 mg PO DAILY 90 tabs 3RF Discontinued metoprolol succinate ER (Toprol XL) Discontinued Reason: Doctor's Order 50 mg PO DAILY 90 tabs 3RF Coding Level of Care Code Est Pt Level 4 (96642) Diagnoses Persistent atrial fibrillation I48.19 Primary hypertension I10 Hypertension type: primary hypertension Chronic fatigue R53.82 Fatigue type: chronic, unspecified
[2023-02-19 12:42] VITALS: BP 110/54; PULSE 86; BMI 24.8
== END 2023-02-19 13:01 | disposition home or self-care (01) ==
PROVIDERS: PCP Nurse Practitioner Family; Visit Provider Internal Medicine
DX: I48.19 Other persistent atrial fibrillation (principal); I10 Essential (primary) hypertension; R53.82 Chronic fatigue, unspecified
CPT/HCPCS: 99214

== ENCOUNTER 2023-02-19 12:28 | Outpatient (REF) | payer OTHER, SELFPAY ==
--- NOTE | ~2023-02-19 | XR_ITS ---
EXAMINATION: XR LUMBOSACRAL SPINE CLINICAL INFORMATION: Dorsalgia. COMPARISON: None available. TECHNIQUE: Three views of the lumbosacral spine. FINDINGS: Mild rotatory levoscoliosis of the lumbar spine of 11 degrees is measured from superior endplate of L1 to the upper endplate of L4. The vertebral body heights are maintained. No compression fractures. Multilevel degenerative disc disease as manifest by loss of disc height, vacuum disc, endplate sclerosis and osteophytosis. Findings on the AP view include mild right lateral listhesis at L1-L2 and mild left lateral listhesis at L4-L5. On the lateral view, there is a stairstep pattern of mild degenerative retrolisthesis throughout the lumbar spine. Multilevel facet arthropathy is present, and there appears to be multilevel osseous stenosis of the lumbar spinal canal and neural foramina. The sacrum and sacroiliac joints are intact. No suspicious bone lesions. XR/XR lumbar spine 2-3V IMPRESSION: Multilevel degenerative disc disease, mild vertebral subluxations and levoscoliosis of the lumbar spine. The radiographic findings suggest presence of multilevel spinal canal and neural foraminal stenosis.
== END 2023-02-19 12:29 | disposition home or self-care (01) ==
LOC: HO.HOSX 12:28
PROVIDERS: Visit Provider Physical Medicine & Rehabilitation
DX: M25.50 Pain in unspecified joint (principal); I48.19 Other persistent atrial fibrillation; I10 Essential (primary) hypertension; R53.82 Chronic fatigue, unspecified; M79.18 Myalgia, other site; M47.816 Spondylosis without myelopathy or radiculopathy, lumbar region; Z79.899 Other long term (current) drug therapy
CPT/HCPCS: 72100

== ENCOUNTER 2023-03-17 08:33 | Outpatient (REF) | payer OTHER, SELFPAY ==
[2023-03-17 11:36] LABS: PSA,Total (Free>4and<10) 13.55 ng/mL (0.00-4.00)
== END 2023-03-17 08:34 | disposition home or self-care (01) ==
LOC: HO.LAB 08:33
PROVIDERS: PCP Nurse Practitioner Family; Visit Provider Urology
DX: Z12.5 Encounter for screening for malignant neoplasm of prostate (principal); R97.20 Elevated prostate specific antigen [PSA]
CPT/HCPCS: 36415; 84153

== ENCOUNTER 2023-03-20 09:40 | Outpatient (AMB) | payer OTHER, SELFPAY ==
[2023-03-20 09:44] VITALS: BP 128/66; PULSE 64; RESP 13; TEMP 36.6; O2SAT 99; BMI 25.6
--- NOTE | 2023-03-20 09:44 | MHC.PC.OV ---
Vital Signs 03/20/23 09:44 Height 5 ft 8 in Weight 168 lb 8 oz BMI 25.6 BP 128/66 Blood Pressure Location Rt brachial Position Sitting Respiration 13 Pulse 64 Pulse Source Pulse Oximeter Temp 97.8 F Temp Source Temporal Artery Scan Pulse Oximetry (%) 99 Oxygen Delivery Method Room Air Intake Visit Reasons: f/u anxiety/depression Department Head College Or University Required: No Accompanied by: Self / Same As Patient Allergies tamsulosin Allergy (Unknown, Verified 03/20/23 10:01) dizziness, weakness Medication List - Last Reconciled 03/20/23 by George Spring CNP amlodipine 10 mg PO DAILY 90 days apixaban (Eliquis) 5 mg PO BID atenolol 50 mg PO DAILY atorvastatin 80 mg PO DAILY 90 days cetirizine (Zyrtec) 10 mg PO DAILY 30 days cholecalciferol (vitamin D3) 50 mcg PO DAILY donepezil 10 mg PO DAILY 30 days irbesartan 300 mg PO DAILY 90 days psyllium husk (Metamucil) 1 tbsp PO BID 30 days sertraline 50 mg PO DAILY 30 days Tobacco use date assessed: 03/20/23 Fall risk assessment: 1 Fall in past year Last assessed Fall Risk: 03/20/23 Dental Screening Dental Screen Date: 03/20/23 Did you have a dental visit in the last 12 months?: Yes Did you have a dental problem in the last 6 months where you did not have access to dental care?: No Was dental information given to patient?: Patient has dentist HPI HPI Comments History of Present Illness Details 82-year-old male presents for anxiety, and depression follow-up He admits to taking his medications as prescribed without adverse reactions He notes that he regained his energy 2 weeks ago He notes that I have been anxious my whole life. He is frustrated he no longer feels he is able to do the physical things he used to do and cannot travel as much due to his age No SI/HI/AH/VH. No behavioral disturbances He appears in no acute distress [facility] Medical History Hypertension Erectile dysfunction Feeling of incomplete bladder emptying Post-void dribbling Weak urinary stream Nocturia Elevated PSA Surgical History Hx of inguinal hernia repair Hx of arthroscopy of right knee Hx of colonoscopy Family History Father Prostate cancer Social History Household Members: Friend(s) Housing: Apartment Alcohol intake: current Alcohol intake frequency: holidays/special occasions only Patient Tobacco Use Status: Former Tobacco user e-Cigarette/Vaping Use: Never Used service: No Current occupational status: retired Current occupational exposures/hazards: No Sexual orientation: Unable to collect Gender identity: Unable to collect Cognitive needs: No Hearing needs: Yes Vision needs: No Questionnaire PHQ-9 Over the last 2 weeks, how often have you been bothered by any of the following problems? 1. Little interest or pleasure in doing things: not at all 2. Feeling down, depressed, or hopeless: not at all 3. Trouble falling or staying asleep, or sleeping too much: not at all 4. Feeling tired or having little energy: several days 5. Poor appetite or overeating: several days 6. Feeling bad about yourself - or that you are a failure or have let yourself or your family down: not at all 7. Trouble concentrating on things, such as reading the newspaper or watching television: not at all 8. Moving or speaking so slowly that other people could have noticed. Or the opposite - being so fidgety or restless that you have been moving around a lot more than usual: not at all 9. Thoughts that you would be better off or of hurting yourself in some way: not at all Total score: 2 Depression Screening Interpretation: Negative Depression Screening Done: Yes 49193 - PHQ-9 Billing: Yes Source: Developed by Drs. Domo Mckinley, Cindi Mcfadden, Randy Sotelo and colleagues, with an educational petey from [employer]. Thrive Questionnaire Date Thrive assessed: 12/26/22 CORBIN-7 AMB Questionnaire CORBIN-7 Date CORBIN - 7 assessed: 03/20/23 Feeling nervous, anxious, or on edge: 3 = Nearly every day Not being able to stop or control worryin = Nearly every day Worrying too much about different things: 3 = Nearly every day Trouble relaxin = Not at all Being so restless that it is hard to sit still: 0 = Not at all Becoming easily annoyed or irritable: 3 = Nearly every day Feeling afraid as if something awful might happen: 0 = Not at all Total CORBIN-7 score (0-4 normal; 5-9 mild; 10-14 moderate; 15-21 severe): 12 Source: Developed by Drs. Domo Mckinley, Cindi Mcfadden, Randy Sotelo and colleagues, with an educational petey from [employer]. CORBIN-7 Assessment Billing CORBIN-7 Assessment Tool: CORBIN-7 Assessment 60026 Review of Systems Const Details: Const Denies chills, Denies fatigue, Denies fever(s), Denies headache(s) and Denies weakness ENT Denies dizziness and Denies headache(s) Card Denies chest pain, Denies lightheadedness, Denies dyspnea and Denies other (Palpitations) Resp Denies cough, Denies dyspnea, Denies wheezing and Denies other ( shortness of breath) GI Denies abdominal pain, Denies melena, Denies hematochezia, Denies change in bowel habits, Denies dyspepsia and Denies nausea Denies hematuria and Denies dysuria Musc Denies abnormal gait, Denies myalgias, Denies arthralgias, Denies numbness and Denies tingling Skin/Breast Denies rash, Denies unusual bruising and Denies wounds Neuro Denies abnormal gait, Denies dizziness, Denies headache(s), Denies memory loss, Denies numbness, Denies Sensory deficit (Neuro), Denies tingling and Denies weakness Psych Reports anxiety, Denies depression, Denies memory loss Endo Denies cold intolerance, Denies fatigue, Denies heat intolerance, Denies polydipsia and Denies polyuria Aller/Immun Denies wheezing Physical exam (Primary Care) Vital Signs: Last Vital Signs Temp 97.8 F 03/20/23 09:44 Pulse 64 03/20/23 09:44 Resp 13 03/20/23 09:44 BP 128/66 03/20/23 09:44 Pulse Ox 99 03/20/23 09:44 Oxygen Delivery Method Room Air 03/20/23 09:44 BMI result Body Mass Index 25.6 Tobacco/Smoking Status: Tobacco use Status Tobacco use date assessed 03/20/23 03/20/23 09:55 Patient Tobacco Use Status Former Tobacco user 03/20/23 09:51 e-Cigarette/Vaping Use Never Used 03/20/23 09:51 PHQ-9: PHQ-9 Score PHQ-9: Total score 2 03/20/23 09:55 Depression Screening Interpretation: Negative Thrive Assessment: Date of Thrive Assessment Date Thrive assessed 12/26/22 03/20/23 09:51 Const Other: General: no acute distress and well developed Nutritional Appearance: well nourished Orientation/consciousness: patient oriented x3 HENMT Head: Yes normocephalic and Yes atraumatic Eyes General: appearance normal, both eyes and all related structures Pupils: Equal, round and reactive pupils present EOM: EOMs intact bilaterally Resp Effort & Inspection: normal respiratory effort Auscultation: clear to auscultation bilaterally Cardio Rate: regular rate Rhythm: regular rhythm Heart sounds: S1 normal heart sound present, S2 normal heart sound present, no gallops, no murmurs and no rubs GI Palpation (GI): No Abdominal aortic bruit present, Soft to palpation, nontender, No hepatosplenomegaly present and No Rebound tenderness present Auscultation: normal bowel sounds General: Yes no CVA tenderness Back/Spine/Pelvis Back: no CVA tenderness Cervical Spine: cervical ROM normal and No Cervical spine tenderness Thoracic/Lumbar Spine: thoraco-lumbar ROM normal, No pain with thoraco-lumbar ROM, No thoracic spinal tenderness and No lumbar spinal tenderness Extrem General: Yes normal to inspection, No edema and No calf tenderness Skin General: warm and dry. Normal skin color. Normal skin turgor Neuro General: patient oriented x3, gait normal and no focal neuro deficit Cranial nerves: Yes Equal, round and reactive pupils present Cognition (Neuro): normal cognition Gait exam (Neuro): Normal gait present Sensory Exam: No Sensory deficit (Neuro) Psych Appearance: grossly normal Affect: normal affect Attitude: cooperative Thought process: Normal thought process present Assessment and Plan Assessment & Plan (1) Anxiety and depression: Code(s): F41.9 - Anxiety disorder, unspecified; F32.A - Depression, unspecified Plan: CORBIN-7 score reveals moderate anxiety. PHQ-9 score is normal Buspirone 10 mg twice daily ordered. Take as prescribed Continue to take sertraline as prescribed Routine exercise encouraged Follow-up in 1 month or return sooner with worsening or new symptoms Verbalized understanding and agreed with treatment plan Medications: New buspirone 10 mg PO BID 60 tabs 3RF 30 days Coding Level of Care Code Est Pt Level 3 (32730) Diagnoses Anxiety and depression F41.9; F32.A Additional Codes CORBIN-7 Assessment Billing - CORBIN-7 Assessment Tool: CORBIN-7 Assessment 11942 ([id number])
== END 2023-03-20 10:14 | disposition home or self-care (01) ==
PROVIDERS: PCP Nurse Practitioner Family; Visit Provider Nurse Practitioner Family
DX: F41.9 Anxiety disorder, unspecified (principal); F32.A Depression, unspecified
CPT/HCPCS: 99213

== ENCOUNTER 2023-04-10 10:08 | Outpatient (AMB) | payer OTHER, SELFPAY ==
--- NOTE | 2023-04-10 10:43 | A.OFFVIS_ITS ---
Intake Intake Visit Reasons: PSA Follow Up(set)Confirmed Intake Note: Patient presents today for a telehealth follow-up on: Meds- None Allergies to Antibiotic- No Known Allergies Blood Thinner- Eliquis Harness Installer Required: No Accompanied by: Self / Same As Patient Allergies tamsulosin Allergy (Unknown, Verified 04/10/23 10:45) dizziness, weakness HPI HPI Comments History of Present Illness Details Olman SALGADO is a very pleasant male. He is a patient of Dr. Soni. He is seen in the office today for the following urologic conditions. - lower urinary tract symptoms PSAs continued to rise - now 13 Recommend either finasteride or prostate biopsy BRETT 3+ normal He has been generally unwell for the last few months Would prefer repeat PSA in 3 months Lower Urinary Tract Symptoms:? Current visit is for?further evaluation of, lower urinary tract symptoms, predominate obstructive symptoms ?- father with prostate cancer.? Prior treatments include? - Had been managed for 3 years with another urologist. Treatment focused on terazosin and oxybutynin. No estimate of prostate size. Had previously been on finasteride but experienced declined libido. ?06/26 , laser procedure.? Prostate Symptom Score?02/26 , Moderate (9-19), Bother 3 ? Symptoms include?02/26 , incomplete emptying, weak stream, nocturia (>2), urgency, and are progressing.? Results from testing include? cystoscopy ?high riding bladder neck (median bar) trabeculations 03/29 ? renal/bladder us ?Yes ? date ?03/27/2017 thickend wall with trabeculations ? PVR ?26 ? prostate size ?50 ? Prior Prostate Score?unknown.? PSA?01/26 1.4 - 08/29 3.7, 03/02 3.6, 08/30 3.7, 08/01 4.6 F 37%, 04/04 13 ? Prostate volume?50+gm.? Testing at next visit will include?bladder scan.? Treatment plan?Continue with surveillance. [facility] Medical History Hypertension Erectile dysfunction Feeling of incomplete bladder emptying Post-void dribbling Weak urinary stream Nocturia Elevated PSA Surgical History Hx of inguinal hernia repair Hx of arthroscopy of right knee Hx of colonoscopy Family History Father Prostate cancer Social History Household Members: Friend(s) Housing: Apartment Alcohol intake: current Alcohol intake frequency: holidays/special occasions only Patient Tobacco Use Status: Former Tobacco user e-Cigarette/Vaping Use: Never Used service: No Current occupational status: retired Current occupational exposures/hazards: No Sexual orientation: Unable to collect Gender identity: Unable to collect Cognitive needs: No Hearing needs: Yes Vision needs: No Review of Systems Const Denies chills and Denies fever(s) Card Reports no additional complaints and Denies syncope Resp Denies cough GI Denies abdominal pain and Denies heartburn Reports as per HPI and Denies change in libido Neuro Denies syncope Psych Denies change in libido Endo Denies change in libido Physical Exam Const General: cooperative, healthy appearing, comfortable and no acute distress Orientation/consciousness: patient oriented x3 HEENT Face and sinus: Yes normal facial exam Mouth: moist mucous membranes Neck Neck: Yes normal visual inspection, Yes full ROM and Yes trachea midline Chest Chest palpation & inspection: normal inspection of the chest Resp Effort & Inspection: normal respiratory effort, able to speak in complete sentences and no respiratory distress GI Inspection: Yes normal to inspection Back/Spine/Pelvis Cervical Spine: normal cervical lordosis Thoracic/Lumbar Spine: thoracic and lumbar spine normal to inspection Skin General skin exam: no rashes or lesions noted Neuro General: patient oriented x3, gait normal, tone normal and moves all extremities Extrem General: Yes normal to inspection and Yes capillary refill normal Assessment & Plan Assessment & Plan (1) Elevated PSA: Code(s): R97.20 - Elevated prostate specific antigen [PSA] Plan Three-month follow-up PSA Orders: Orders PSA,Total (Free>4and<10) 3 Months R97.20 - Elevated prostate specific antigen [PSA] Patient Instructions: Imaging studies, laboratory and physical exam results were discussed and revi ewed in detail. No major barriers to patient understanding were identified. An opportunity to ask questions regarding the treatment plan was provided. All questions were answered. The patient expressed understanding and agreement with the above treatment plan. The patient is aware they should contact our office by phone for worsening of their current condition or the appearance of new urologic symptoms. Compliance is encouraged with any medications and followup testing that is ordered. It is a privilege to participate in the urologic care of your patient. If you have any questions or concerns regarding treatment for the above conditions, or other urologic issues, please do not hesitate to contact me. The office telephone contact is [phone]. This note is constructed using voice recognition software. While every effort has been made to ensure accuracy auto service instructor errors may have been included. Yours sincerely, Dr Osvaldo De La Rosa MD, [facility] - Urology Providers of Expert, Compassionate Care for the Genitourinary System Coding Level of Care Code Est Pt Level 3 (48680) Diagnoses Elevated PSA R97.20
== END 2023-04-10 11:37 | disposition home or self-care (01) ==
PROVIDERS: PCP Nurse Practitioner Family; Visit Provider Urology
DX: R97.20 Elevated prostate specific antigen [PSA] (principal)
CPT/HCPCS: 99213

== ENCOUNTER → 2023-04-10 10:08 | Outpatient (BNVA) | payer OTHER, SELFPAY | PROVIDERS: PCP Nurse Practitioner Family; Visit Provider Urology ==

== ENCOUNTER 2023-04-24 12:04 | Outpatient (AMB) | payer OTHER, SELFPAY ==
[2023-04-24 12:07] VITALS: BP 110/60; PULSE 62; RESP 13; TEMP 36.1; O2SAT 98; BMI 24.6
--- NOTE | 2023-04-24 12:07 | A.OFFPC_ITS ---
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 Assistant Required: No Accompanied by: Self / Same As Patient Allergies tamsulosin Allergy (Unknown, Verified 04/24/23 12:24) dizziness, weakness Medication List - Last Reconciled 04/24/23 by George Spring CNP amlodipine 10 mg PO DAILY 90 days apixaban (Eliquis) 5 mg PO BID atorvastatin 80 mg PO DAILY 90 days buspirone 10 mg PO BID 30 days cetirizine (Zyrtec) 10 mg PO DAILY 30 days cholecalciferol (vitamin D3) 50 mcg PO DAILY donepezil 10 mg PO DAILY 30 days irbesartan 300 mg PO DAILY 90 days psyllium husk (Metamucil) 1 tbsp PO BID 30 days sertraline 50 mg PO DAILY 30 days Tobacco use date assessed: 03/20/23 Fall risk assessment: 2 + Falls in past year Last assessed Fall Risk: 04/24/23 Dental Screening Dental Screen Date: 04/24/23 Did you have a dental visit in the last 12 months?: Yes Did you have a dental problem in the last 6 months where you did not have access to dental care?: No Was dental information given to patient?: Patient has dentist HPI HPI Comments History of Present Illness Details 82-year-old male presents for anxiety, a nd depression follow-up He admits to taking his medications as prescribed without adverse reactions He states that he has no energy. I'm losing everything. I just lost my [facility] and health card. I forget where i put things now. He expressed frustration about things that he use to do but cannot do anymore and things he cannot remember. He notes that his symptoms have been ongoing for a year. He admits to feeling hopeless and helpless. No SI/HI/AH/VH. No behavioral disturbances He is concerned about his shuffling gait which has been going on for years. He does not use any assistive devices for ambulation He appears in no acute distress [facility] Medical History Hypertension Erectile dysfunction Feeling of incomplete bladder emptying Post-void dribbling Weak urinary stream Nocturia Elevated PSA Surgical History Hx of inguinal hernia repair Hx of arthroscopy of right knee Hx of colonoscopy Family History Father Prostate cancer Social History Household Members: Friend(s) Housing: Apartment Alcohol intake: current Alcohol intake frequency: holidays/special occasions only Patient Tobacco Use Status: Former Tobacco user e-Cigarette/Vaping Use: Never Used service: No Current occupational status: retired Current occupational exposures/hazards: No Sexual orientation: Unable to collect Gender identity: Unable to collect Cognitive needs: No Hearing needs: Yes Vision needs: Yes Questionnaire PHQ-9 Over the last 2 weeks, how often have you been bothered by any of the following problems? 1. Little interest or pleasure in doing things: several days 2. Feeling down, depressed, or hopeless: several days 3. Trouble falling or staying asleep, or sleeping too much: several days (staying asleep) 4. Feeling tired or having little energy: nearly every day 5. Poor appetite or overeating: more than half the days (poor appetite) 6. Feeling bad about yourself - or that you are a failure or have let yourself or your family down: more than half the days 7. Trouble concentrating on things, such as reading the newspaper or watching television: not at all 8. Moving or speaking so slowly that other people could have noticed. Or the opposite - being so fidgety or restless that you have been moving around a lot more than usual: not at all 9. Thoughts that you would be better off or of hurting yourself in some way: not at all Total score: 10 Depression Screening Interpretation: Positive Depression Screening Follow-up: Existing condition, In treatment and Change in Medication Depression Screening Done: Yes 75312 - PHQ-9 Billing: Yes Source: Developed by Drs. Domo Mckinley, Cindi Mcfadden, Randy Sotelo and colleagues, with an educational petey from [employer]. Thrive Questionnaire Date Thrive assessed: 11/17/23 CORBIN-7 AMB Questionnaire CORBIN-7 Date CORBIN - 7 assessed: 04/24/23 Feeling nervous, anxious, or on edge: 3 = Nearly every day Not being able to stop or control worryin = More than half the days Worrying too much about different things: 2 = More than half the days Trouble relaxin = Several days Being so restless that it is hard to sit still: 1 = Several days Becoming easily annoyed or irritable: 3 = Nearly every day Feeling afraid as if something awful might happen: 1 = Several days Total CORBIN-7 score (0-4 normal; 5-9 mild; 10-14 moderate; 15-21 severe): 13 Source: Developed by Drs. Domo Mckinley, Cindi Mcfadden, Randy Sotelo and colleagues, with an educational petey from [employer]. CORBIN-7 Assessment Billing CORBIN-7 Assessment Tool: CORBIN-7 Assessment 87058 Review of Systems Const Details: Const Denies chills, Denies fatigue, Denies fever(s), Denies headache(s) and Denies weakness ENT Denies dizziness and Denies headache(s) Card Denies chest pain, Denies lightheadedness, Denies dyspnea and Denies other (Palpitations) Resp Denies cough, Denies dyspnea, Denies wheezing and Denies other ( shortness of breath) GI Denies abdominal pain, Denies melena, Denies hematochezia, Denies change in bowel habits, Denies dyspepsia and Denies nausea Denies hematuria and Denies dysuria Musc Denies abnormal gait, Denies myalgias, Denies arthralgias, Denies numbness and Denies tingling Skin/Breast Denies rash, Denies unusual bruising and Denies wounds Neuro Reports shuffling gait, Denies dizziness, Denies headache(s), Denies memory loss, Denies numbness, Denies Sensory deficit (Neuro), Denies tingling and Denies weakness Psych Reports anxiety, Reports depression, Denies memory loss Endo Denies cold intolerance, Denies fatigue, Denies heat intolerance, Denies polydipsia and Denies polyuria Aller/Immun Denies wheezing Physical exam (Primary Care) Vital Signs: Last Vital Signs Temp 97 F 04/24/23 12:07 Pulse 62 04/24/23 12:07 Resp 13 04/24/23 12:07 BP 110/60 04/24/23 12:07 Pulse Ox 98 04/24/23 12:07 Oxygen Delivery Method Room Air 04/24/23 12:07 BMI result Body Mass Index 24.6 Tobacco/Smoking Status: Tobacco use Status Tobacco use date assessed 03/20/23 04/24/23 12:17 Patient Tobacco Use Status Former Tobacco user 04/24/23 12:17 e-Cigarette/Vaping Use Never Used 04/24/23 12:17 PHQ-9: PHQ-9 Score PHQ-9: Total score 10 04/24/23 12:48 Depression Screening Interpretation: Positive Depression Screening Follow-up: Existing condition, In treatment and Change in Medication Thrive Assessment: Date of Thrive Assessment Date Thrive assessed 12/26/22 04/24/23 12:17 Const Other: General: no acute distress and well developed Nutritional Appearance: well nourished Orientation/consciousness: patient oriented x3 HENMT Head: Yes normocephalic and Yes atraumatic Eyes General: appearance normal, both eyes and all related structures Pupils: Equal, round and reactive pupils present EOM: EOMs intact bilaterally Resp Effort & Inspection: normal respiratory effort Auscultation: clear to auscultation bilaterally Cardio Rate: regular rate Rhythm: regular rhythm Heart sounds: S1 normal heart sound present, S2 normal heart sound present, no gallops, no murmurs and no rubs GI Palpation (GI): No Abdominal aortic bruit present, Soft to palpation, nontender, No hepatosplenomegaly present and No Rebound tenderness present Auscultation: normal bowel sounds General: Yes no CVA tenderness Back/Spine/Pelvis Back: no CVA tenderness Cervical Spine: cervical ROM normal and No Cervical spine tenderness Thoracic/Lumbar Spine: thoraco-lumbar ROM normal, No pain with thoraco-lumbar ROM, No thoracic spinal tenderness and No lumbar spinal tenderness Extrem General: Yes normal to inspection, No edema and No calf tenderness Skin General: warm and dry. Normal skin color. Normal skin turgor Neuro General: patient oriented x3, narrow-based gait and no focal neuro deficit Cranial nerves: Yes Equal, round and reactive pupils present Cognition (Neuro): normal cognition Gait exam (Neuro): Normal gait present Sensory Exam: No Sensory deficit (Neuro) Psych Appearance: grossly normal Affect: normal affect Attitude: cooperative Thought process: Normal thought process present Assessment and Plan Assessment & Plan (1) Anxiety and depression: Code(s): F41.9 - Anxiety disorder, unspecified; F32.A - Depression, unspecified Plan: PHQ-9 and CORBIN-7 scores revealed moderate anxiety and depression Reports increased anxiety and depression symptoms Will increase sertraline to 100 mg daily. Take as prescribed Continue to take buspirone 10 mg twice daily Routine exercise encouraged Follow-up in 1 month or return sooner with worsening or new symptoms Verbalized understanding and agreed with treatment plan (2) Shuffling gait: Code(s): R26.89 - Other abnormalities of gait and mobility Plan: He does not use any assistive device for ambulation Instructed on safety, including the use of an assistive device for ambulation to prevent fall Cane ordered; advised to use at all times for walking Verbalized understanding and agreed with the plan Medications: New miscellaneous medical supply 1 cane for ambulation 1 ea 0RF sertraline 100 mg PO DAILY 30 days 30 tabs 3RF Discontinued sertraline Discontinued Reason: Doctor's Order 50 mg PO DAILY 30 days 30 tabs 3RF Coding Level of Care Code Est Pt Level 4 (67427) Diagnoses Anxiety and depression F41.9; F32.A Shuffling gait R26.89 Additional Codes CORBIN-7 Assessment Billing - CORBIN-7 Assessment Tool: CORBIN-7 Assessment 58991 ([id number])
== END 2023-04-24 13:07 | disposition home or self-care (01) ==
PROVIDERS: PCP Nurse Practitioner Family; Visit Provider Nurse Practitioner Family
DX: F41.9 Anxiety disorder, unspecified (principal); F32.A Depression, unspecified; R26.89 Other abnormalities of gait and mobility
CPT/HCPCS: 96127; 99214

== ENCOUNTER 2023-05-29 14:41 | Outpatient (AMB) | payer OTHER, SELFPAY ==
[2023-05-29 14:48] VITALS: BP 124/60; PULSE 59; RESP 13; TEMP 36.6; O2SAT 99; BMI 24.4
--- NOTE | 2023-05-29 14:48 | A.OFFPC_ITS ---
Intake Visit Reasons: follow up anxiety depression Allergies tamsulosin Allergy (Unknown, Verified 04/24/23 12:24) dizziness, weakness Tobacco use date assessed: 03/20/23 Dental Screening Dental Screen Date: 04/24/23 COUNT INCLUDES THE [facility] Medical History Hypertension Erectile dysfunction Feeling of incomplete bladder emptying Post-void dribbling Weak urinary stream Nocturia Elevated PSA Surgical History Hx of inguinal hernia repair Hx of arthroscopy of right knee Hx of colonoscopy Family History Father Prostate cancer Social History Household Members: Friend(s) Housing: Apartment Alcohol intake: current Alcohol intake frequency: holidays/special occasions only Patient Tobacco Use Status: Former Tobacco user e-Cigarette/Vaping Use: Never Used service: No Current occupational status: retired Current occupational exposures/hazards: No Sexual orientation: Unable to collect Gender identity: Unable to collect Cognitive needs: No Hearing needs: Yes Vision needs: Yes Questionnaire Thrive Questionnaire Date Thrive assessed: 12/26/22 CORBIN-7 AMB Questionnaire CORBIN-7 Date CORBIN - 7 assessed: 04/24/23 Source: Developed by Drs. Domo Mckinley, Cindi Mcfadden, Randy Sotelo and colleagues, with an educational petey from [employer] Review of Systems Const Details: Const Denies chills, Denies fatigue, Denies fever(s), Denies headache(s) and Denies weakness ENT Denies dizziness and Denies headache(s) Card Denies chest pain, Denies lightheadedness, Denies dyspnea and Denies other (Palpitations) Resp Denies cough, Denies dyspnea, Denies wheezing and Denies other ( shortness of breath) GI Denies abdominal pain, Denies melena, Denies hematochezia, Denies change in bowel habits, Denies dyspepsia and Denies nausea Denies hematuria and Denies dysuria Musc Denies abnormal gait, Denies myalgias, Denies arthralgias, Denies numbness and Denies tingling Skin/Breast Denies rash, Denies unusual bruising and Denies wounds Neuro Denies abnormal gait, Denies dizziness, Denies headache(s), Denies memory loss, Denies numbness, Denies Sensory deficit (Neuro), Denies tingling and Denies weakness Psych Denies anxiety, Denies depression, Denies memory loss Endo Denies cold intolerance, Denies fatigue, Denies heat intolerance, Denies polydipsia and Denies polyuria Aller/Immun Denies wheezing Physical exam (Primary Care) Tobacco/Smoking Status: Tobacco use Status Tobacco use date assessed 03/20/23 04/24/23 12:17 Patient Tobacco Use Status Former Tobacco user 04/24/23 12:17 e-Cigarette/Vaping Use Never Used 04/24/23 12:17 Thrive Assessment: Date of Thrive Assessment Date Thrive assessed 12/26/22 04/24/23 12:17 Const Other: General: no acute distress and well developed Nutritional Appearance: well nourished Orientation/consciousness: patient oriented x3 HENMT Head: Yes normocephalic and Yes atraumatic Eyes General: appearance normal, both eyes and all related structures Pupils: Equal, round and reactive pupils present EOM: EOMs intact bilaterally Resp Effort & Inspection: normal respiratory effort Auscultation: clear to auscultation bilaterally Cardio Rate: regular rate Rhythm: regular rhythm Heart sounds: S1 normal heart sound present, S2 normal heart sound present, no gallops, no murmurs and no rubs GI Palpation (GI): No Abdominal aortic bruit present, Soft to palpation, nontender, No hepatosplenomegaly present and No Rebound tenderness present Auscultation: normal bowel sounds General: Yes no CVA tenderness Back/Spine/Pelvis Back: no CVA tenderness Cervical Spine: cervical ROM normal and No Cervical spine tenderness Thoracic/Lumbar Spine: thoraco-lumbar ROM normal, No pain with thoraco-lumbar ROM, No thoracic spinal tenderness and No lumbar spinal tenderness Extrem General: Yes normal to inspection, No edema and No calf tenderness Skin General: warm and dry. Normal skin color. Normal skin turgor Lesions: no lesions Rashes: no rashes Trauma: no lacerations or abrasions Wounds: no wounds Nails: normal Neuro General: patient oriented x3, gait normal and no focal neuro deficit Cranial nerves: Yes Equal, round and reactive pupils present Cognition (Neuro): normal cognition Gait exam (Neuro): Normal gait present Sensory Exam: No Sensory deficit (Neuro) Psych Appearance: grossly normal Affect: normal affect Attitude: cooperative Thought process: Normal thought process present Coding
--- NOTE | 2023-05-29 14:48 | A.OFFPC_ITS ---
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 Accompanied by: Self / Same As Patient Allergies tamsulosin Allergy (Unknown, Verified 05/29/23 14:56) dizziness, weakness Medication List - Last Reconciled 05/29/23 by George Spring CNP amlodipine 10 mg PO DAILY 90 days apixaban (Eliquis) 5 mg PO BID 90 days atorvastatin 80 mg PO DAILY 90 days buspirone 10 mg PO BID 30 days cetirizine (Zyrtec) 10 mg PO DAILY 30 days cholecalciferol (vitamin D3) 50 mcg PO DAILY donepezil 10 mg PO DAILY 30 days irbesartan 300 mg PO DAILY 90 days miscellaneous medical supply 1 cane for ambulation psyllium husk (Metamucil) 1 tbsp PO BID 30 days sertraline 100 mg PO DAILY 30 days Tobacco use date assessed: 03/20/23 Fall risk assessment: 2 + Falls in past year Last assessed Fall Risk: 05/29/23 Dental Screening Dental Screen Date: 04/24/23 HPI HPI Comments History of Present Illness Details 83-year-old male presents for anxiety, a nd depression follow-up He admits to taking his medications as prescribed without adverse reactions. Sertraline was increased to 100mg at his last visit a month ago He reports improved anxiety and depression symptoms since his last visit. He states that I'm getting old, everything piss me off. I watch TV it pisses me off No SI/HI/AH/VH. No behavioral disturbances He reports watery-loose stool, 2-3 stools daily, for several months. Metamucil provides some relief. No nausea, vomiting, bloody stool, or abdominal pain. He was [place] [facility] [place] last year for loose stools PFSH Medical History Hypertension Erectile dysfunction Feeling of incomplete bladder emptying Post-void dribbling Weak urinary stream Nocturia Elevated PSA Surgical History Hx of inguinal hernia repair Hx of arthroscopy of right knee Hx of colonoscopy Family History Father Prostate cancer Social History Household Members: Friend(s) Housing: Apartment Alcohol intake: current Alcohol intake frequency: holidays/special occasions only Patient Tobacco Use Status: Former Tobacco user e-Cigarette/Vaping Use: Never Used service: No Current occupational status: retired Current occupational exposures/hazards: No Sexual orientation: Unable to collect Gender identity: Unable to collect Cognitive needs: No Hearing needs: Yes Vision needs: Yes Questionnaire PHQ-9 Over the last 2 weeks, how often have you been bothered by any of the following problems? 1. Little interest or pleasure in doing things: nearly every day 2. Feeling down, depressed, or hopeless: several days 3. Trouble falling or staying asleep, or sleeping too much: not at all 4. Feeling tired or having little energy: nearly every day 5. Poor appetite or overeating: nearly every day 6. Feeling bad about yourself - or that you are a failure or have let yourself or your family down: not at all 7. Trouble concentrating on things, such as reading the newspaper or watching television: not at all 8. Moving or speaking so slowly that other people could have noticed. Or the opposite - being so fidgety or restless that you have been moving around a lot more than usual: not at all 9. Thoughts that you would be better off or of hurting yourself in some way: not at all Total score: 10 Depression Screening Interpretation: Positive Depression Screening Follow-up: Existing condition and In treatment Depression Screening Done: Yes 66545 - PHQ-9 Billing: Yes Source: Developed by Drs. Domo Mckinley, Cindi Mcfadden, Randy Sotelo and colleagues, with an educational petey from [employer]. Thrive Questionnaire Date Thrive assessed: 12/26/22 CORBIN-7 AMB Questionnaire CORBIN-7 Date CORBIN - 7 assessed: 05/29/23 Feeling nervous, anxious, or on edge: 3 = Nearly every day Not being able to stop or control worryin = Several days Worrying too much about different things: 1 = Several days Trouble relaxin = Not at all Being so restless that it is hard to sit still: 0 = Not at all Becoming easily annoyed or irritable: 1 = Several days Feeling afraid as if something awful might happen: 1 = Several days Total CORBIN-7 score (0-4 normal; 5-9 mild; 10-14 moderate; 15-21 severe): 7 Source: Developed by Drs. Doom Mckinley, Cindi Mcfadden, Randy Sotelo and colleagues, with an educational petey from [employer]. CORBIN-7 Assessment Billing CORBIN-7 Assessment Tool: CORBIN-7 Assessment 74733 Review of Systems Const Details: Const Denies chills, Denies fatigue, Denies fever(s), Denies headache(s) and Denies weakness ENT Denies dizziness and Denies headache(s) Card Denies chest pain, Denies lightheadedness, Denies dyspnea and Denies other (Palpitations) Resp Denies cough, Denies dyspnea, Denies wheezing and Denies other ( shortness of breath) GI Denies abdominal pain, Denies melena, Denies hematochezia, Denies change in bowel habits, Denies dyspepsia and Denies nausea Denies hematuria and Denies dysuria Musc Denies abnormal gait, Denies myalgias, Denies arthralgias, Denies numbness and Denies tingling Skin/Breast Denies rash, Denies unusual bruising and Denies wounds Neuro Denies abnormal gait, Denies dizziness, Denies headache(s), Denies memory loss, Denies numbness, Denies Sensory deficit (Neuro), Denies tingling and Denies weakness Psych Denies anxiety, Denies depression, Denies memory loss Endo Denies cold intolerance, Denies fatigue, Denies heat intolerance, Denies polydipsia and Denies polyuria Aller/Immun Denies wheezing Physical exam (Primary Care) Vital Signs: Last Vital Signs Temp 97.9 F 05/29/23 14:48 Pulse 59 05/29/23 14:48 Resp 13 05/29/23 14:48 BP 124/60 05/29/23 14:48 Pulse Ox 99 05/29/23 14:48 Oxygen Delivery Method Room Air 05/29/23 14:48 BMI result Body Mass Index 24.4 Tobacco/Smoking Status: Tobacco use Status Tobacco use date assessed 03/20/23 05/29/23 14:51 Patient Tobacco Use Status Former Tobacco user 05/29/23 14:51 e-Cigarette/Vaping Use Never Used 05/29/23 14:51 PHQ-9: PHQ-9 Score PHQ-9: Total score 10 05/29/23 14:58 Depression Screening Interpretation: Positive Depression Screening Follow-up: Existing condition and In treatment Thrive Assessment: Date of Thrive Assessment Date Thrive assessed 12/26/22 05/29/23 14:51 Const Other: General: no acute distress and well developed Nutritional Appearance: well nourished Orientation/consciousness: patient oriented x3 HENMT Head: Yes normocephalic and Yes atraumatic Eyes General: appearance normal, both eyes and all related structures Pupils: Equal, round and reactive pupils present EOM: EOMs intact bilaterally Resp Effort & Inspection: normal respiratory effort Auscultation: clear to auscultation bilaterally Cardio Rate: regular rate Rhythm: regular rhythm Heart sounds: S1 normal heart sound present, S2 normal heart sound present, no gallops, no murmurs and no rubs GI Palpation (GI): No Abdominal aortic bruit present, Soft to palpation, nontender, No hepatosplenomegaly present and No Rebound tenderness present Auscultation: normal bowel sounds General: Yes no CVA tenderness Back/Spine/Pelvis Back: no CVA tenderness Cervical Spine: cervical ROM normal and No Cervical spine tenderness Thoracic/Lumbar Spine: thoraco-lumbar ROM normal, No pain with thoraco-lumbar ROM, No thoracic spinal tenderness and No lumbar spinal tenderness Extrem General: Yes normal to inspection, No edema and No calf tenderness Skin General: warm and dry. Normal skin color. Normal skin turgor Neuro General: patient oriented x3, gait normal and no focal neuro deficit Cranial nerves: Yes Equal, round and reactive pupils present Cognition (Neuro): normal cognition Gait exam (Neuro): Normal gait present Sensory Exam: No Sensory deficit (Neuro) Psych Appearance: grossly normal Affect: normal affect Attitude: cooperative Thought process: Normal thought process present Assessment and Plan Assessment & Plan (1) Anxiety and depression: Code(s): F41.9 - Anxiety disorder, unspecified; F32.A - Depression, unspecified Plan: Reports improved depression and anxiety symptoms since his last visit PHQ-9 and CORBIN-7 scores revealed moderate depression and mild anxiety respectively Continue current treatment regimen Routine exercise encouraged Follow-up in 2 months or return sooner with worsening or new symptoms Verbalized understanding and agreed with treatment plan (2) Frequent loose stools: Code(s): R19.7 - Diarrhea, unspecified Plan: Reports frequent loose/watery stool for several months. No associated symptoms or bloody stool He was followed by [facility] for loose stools Advised to continue to take Metamucil as prescribed Referred to [facility] gastroenterology Follow-up with worsening or new symptoms Verbalized understanding and agreed with treatment plan Orders: Referrals Gastroenterology Referral R19.7 - Diarrhea, unspecified Coding Level of Care Code Est Pt Level 4 (73969) Diagnoses Anxiety and depression F41.9; F32.A Frequent loose stools R19.7 Additional Codes CORBIN-7 Assessment Billing - CORBIN-7 Assessment Tool: CORBIN-7 Assessment 31543 ([id number])
== END 2023-05-29 15:23 | disposition home or self-care (01) ==
PROVIDERS: PCP Nurse Practitioner Family; Visit Provider Nurse Practitioner Family
DX: R19.7 Diarrhea, unspecified (principal); F41.9 Anxiety disorder, unspecified; F32.A Depression, unspecified
CPT/HCPCS: 99214

== ENCOUNTER 2023-06-11 08:24 | Outpatient (REF) | payer OTHER, SELFPAY ==
[2023-06-11 10:02] LABS: Anion Gap 13 (12-20); Blood Urea Nitrogen 14 mg/dL (9-16); Calcium 9.6 mg/dL (8.4-10.2); Carbon Dioxide 24 mmol/L (22-29); Chloride 104 mmol/L (96-108); Cholesterol 124 mg/dL (<200); Estimated Glomerular Filt Rate 57; Glucose Random 112 mg/dL (60-115); HDL Cholesterol 52 mg/dL (>40); LDL Cholesterol Calculated 60 mg/dL (<100); Potassium 4.9 mmol/L (3.3-5.1); Sodium 136 mmol/L (135-145); Triglycerides 64 mg/dL (<150)
== END 2023-06-11 08:25 | disposition home or self-care (01) ==
LOC: HO.LAB 08:24
PROVIDERS: PCP Nurse Practitioner Family; Visit Provider Nurse Practitioner Family
DX: Z00.00 Encounter for general adult medical examination without abnormal findings (principal); Z13.6 Encounter for screening for cardiovascular disorders
CPT/HCPCS: 36415; 80048; 80061

== ENCOUNTER 2023-07-09 08:35 | Outpatient (AMB) | payer OTHER, SELFPAY ==
[2023-07-09 08:52] VITALS: BMI 24.3
--- NOTE | 2023-07-09 08:52 | A.OFFVIS_ITS ---
Vital Signs 07/09/23 08:52 Height 5 ft 8 in Weight 160 lb BMI 24.3 Intake Visit Reasons: OV- Low back pain Intake Note: Akil is a 83 year old male who presents today for a follow up for his lower back pain. Patient reports that he is doing better. He expresses that he is doing better. Patient reports that he is unable to do the exercises due to not having so much pain. Allergies tamsulosin Allergy (Unknown, Verified 07/09/23 08:53) dizziness, weakness HPI Comments Details: About 1-2 years of soreness, every time when he bends forward, worse when he gets up. Points to lower back. When he sits down, it goes away. He has started shuffling on gait and walking worsens pain. I saw on medical records that he was worked up for Parkinsons but was not diagnosed with it. He says he does have memory deficits. Denies claudication. No radiation to legs. No associated numbness on feet. He urinary incontinence, follows urology. He also had bowel incontinence, resolved with metamucil. History of atrial fib, prostrate. 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 Denies any sports injury. Since last visit, no change. Back pain does not bother him unless he bends or lifts. Denies claudication. Admits that memory has been worse, short term forgetfulness. He has tremors in his hands. He had shuffling gait, uses cane when needed. He remains independent with ADLs, lives with a conventional mortgage underwriter/housemate. Reviewed last PCP notes - mentioned chronic loose stools. [facility] Medical History Hypertension Erectile dysfunction Feeling of incomplete bladder emptying Post-void dribbling Weak urinary stream Nocturia Elevated PSA Surgical History Hx of inguinal hernia repair Hx of arthroscopy of right knee Hx of colonoscopy Family History Father Prostate cancer Social History Household Members: Friend(s) Housing: Apartment Alcohol intake: current Alcohol intake frequency: holidays/special occasions only Patient Tobacco Use Status: Former Tobacco user e-Cigarette/Vaping Use: Never Used service: No Current occupational status: retired Current occupational exposures/hazards: No Sexual orientation: Unable to collect Gender identity: Unable to collect Cognitive needs: No Hearing needs: Yes Vision needs: Yes Physical Exam Vital Signs: BMI result Body Mass Index 24.3 Constitutional: Patient appears to be in no acute distress, well nourished and well developed. Patient was appropriately conversant and oriented. MSK: He stands stooped forward posture. No tenderness on SI joint, GT, paraspinals, spinous processes. Straight-leg raising test negative. Shuffling gait slow. Resting hand tremors. Strength is 5/5 in all muscle groups tested. No increased tone noted. Neurological: Neurologic examination of the upper and lower extremities was nonfocal with intact sensation, muscle stretch reflexes and without focal motor deficits . Tovar?s negative bilaterally. Babinski was down going bilaterally. Clonus was negative. Results Reviewed Results Reviewed: Ordering Physician: Fatuma Allen Date of Service: 02/19/23 Procedure(s): XR lumbar spine 2-3V Accession Number(s): [id number] cc: Fatuma Allen~ EXAMINATION: XR LUMBOSACRAL SPINE CLINICAL INFORMATION: Dorsalgia. COMPARISON: None available. TECHNIQUE: Three views of the lumbosacral spine. FINDINGS: Mild rotatory levoscoliosis of the lumbar spine of 11 degrees is measured from superior endplate of L1 to the upper endplate of L4. The vertebral body heights are maintained. No compression fractures. Multilevel degenerative disc disease as manifest by loss of disc height, vacuum disc, endplate sclerosis and osteophytosis. Findings on the AP view include mild right lateral listhesis at L1-L2 and mild left lateral listhesis at L4-L5. On the lateral view, there is a stairstep pattern of mild degenerative retrolisthesis throughout the lumbar spine. Multilevel facet arthropathy is present, and there appears to be multilevel osseous stenosis of the lumbar spinal canal and neural foramina. The sacrum and sacroiliac joints are intact. No suspicious bone lesions. XR/XR lumbar spine 2-3V IMPRESSION: Multilevel degenerative disc disease, mild vertebral subluxations and levoscoliosis of the lumbar spine. The radiographic findings suggest presence of multilevel spinal canal and neural foraminal stenosis. I reviewed records from the following: PCP Assessment & Plan Assessment & Plan (1) Lumbar spondylosis: Code(s): M47.816 - Spondylosis without myelopathy or radiculopathy, lumbar region Category: Medical (2) Shuffling gait: Code(s): R26.89 - Other abnormalities of gait and mobility Category: Medical (3) Movement disorder: Code(s): G25.9 - Extrapyramidal and movement disorder, unspecified Category: Medical (4) Memory deficit: Code(s): R41.3 - Other amnesia Category: Medical Plan 1. Back pain is only when lifting and bending forward. However I think it would be prudent to rule out spinal stenosis. Patient had undergone adequate conservative management including home exercises without improvement of condition. It would be reasonable to obtain further imaging such as MRI. An MRI would help rule out any serious condition, guide treatment and assess prognosis for recovery. 2. Chronic shuffling gait. He admits to worsening memory deficits, short term. He does have a tremor at rest. We discussed referral to Dr. Coleman, neurology, to evaluate for movement disorder and memory. Patient agreeable. Assessment and plan discussed with patient, and patient was agreeable. All questions were answered thoroughly. Follow-up after MRI. Fatuma Harris MD, NADIA Board Certified, [place] [employer] and [employer] (ABPMR) Board Certified, [place] [employer] (ABEM) Orders: Orders MR lumbar spine wo con Today M47.816 - Spondylosis without myelopathy or radiculopathy, lumbar region, R26.89 - Other abnormalities of gait and mobility Referrals Neurology Referral G25.9 - Extrapyramidal and movement disorder, unspecified, R26.89 - Other abnormalities of gait and mobility, R41.3 - Other amnesia Coding Level of Care Code Est Pt Level 4 (06642) Diagnoses Lumbar spondylosis M47.816 Shuffling gait R26.89 Movement disorder G25.9 Memory deficit R41.3
== END 2023-07-09 09:14 | disposition home or self-care (01) ==
PROVIDERS: PCP Nurse Practitioner Family; Visit Provider Physical Medicine & Rehabilitation
DX: M47.816 Spondylosis without myelopathy or radiculopathy, lumbar region (principal); R26.89 Other abnormalities of gait and mobility; G25.9 Extrapyramidal and movement disorder, unspecified; R41.3 Other amnesia
CPT/HCPCS: 99214

== ENCOUNTER → 2023-07-09 08:35 | Outpatient (BNVA) | payer OTHER, SELFPAY | PROVIDERS: PCP Nurse Practitioner Family; Visit Provider Physical Medicine & Rehabilitation ==

== ENCOUNTER 2023-07-30 09:03 | Outpatient (REF) | payer OTHER, SELFPAY ==
[2023-07-30 10:40] LABS: PSA,Total (Free>4and<10) 5.52 ng/mL (0.00-4.00)
[2023-07-31 12:02] LABS: Free Prostate Spec Ag 1.6 ng/mL; Percent Free Prostate Spec Ag 32 % (calc) (>25)
== END 2023-07-30 09:04 | disposition home or self-care (01) ==
LOC: HO.LAB 09:03
PROVIDERS: PCP Nurse Practitioner Family; Visit Provider Urology
DX: R97.20 Elevated prostate specific antigen [PSA] (principal); Z12.5 Encounter for screening for malignant neoplasm of prostate
CPT/HCPCS: 36415; 84153; 84154

== ENCOUNTER 2023-08-06 08:58 | Outpatient (AMB) | payer OTHER, SELFPAY ==
--- NOTE | 2023-08-06 09:03 | A.OFFVIS_ITS ---
Intake Visit Reasons: 3M PVR/PSA (SET) Intake Note: Patient is present for 3 month f/u PVR/PSA Urology Medication:none Antibiotic Allergy:none Blood Thinner:apixaban PVR: 18ml Director Electrical Engineering Required: No Allergies tamsulosin Allergy (Unknown, Verified 08/06/23 09:06) dizziness, weakness HPI Comments Details: Olman SALGADO is a very pleasant male. He is a patient of Dr. Chris cisneros. He is seen in the office today for the following urologic conditions. - lower urinary tract symptoms BRETT 3+ normal PSA fell to 5.0 free PSA 32% Happy with improvement Starting to have some degree of instability Lower Urinary Tract Symptoms:? Current visit is for?further evaluation of, lower urinary tract symptoms, predominate obstructive symptoms ?- father with prostate cancer.? Prior treatments include? - Had been managed for 3 years with another urologist. Treatment focused on terazosin and oxybutynin. No estimate of prostate size. Had previously been on finasteride but experienced declined libido. ?06/26 , laser procedure.? Prostate Symptom Score?02/26 , Moderate (9-19), Bother 3 ? Symptoms include?02/26 , incomplete emptying, weak stream, nocturia (>2), urgency, and are progressing.? Results from testing include? cystoscopy ?high riding bladder neck (median bar) trabeculations 03/29 ? renal/bladder us ?Yes ? date ?03/27/2017 thickend wall with trabeculations ? PVR ?26 ? prostate size ?50 ? Prior Prostate Score?unknown.? PSA?01/26 1.4 - 08/29 3.7, 03/02 3.6, 08/30 3.7, 08/01 4.6 F 37%, 04/04 13, 08/02 5.0 32% free ? Prostate volume?50+gm.? Testing at next visit will include?bladder scan.? Treatment plan?Continue with surveillance. [facility] Medical History Hypertension Erectile dysfunction Feeling of incomplete bladder emptying Post-void dribbling Weak urinary stream Nocturia Elevated PSA Surgical History Hx of inguinal hernia repair Hx of arthroscopy of right knee Hx of colonoscopy Family History Father Prostate cancer Social History Household Members: Friend(s) Housing: Apartment Alcohol intake: current Alcohol intake frequency: holidays/special occasions only Patient Tobacco Use Status: Former Tobacco user e-Cigarette/Vaping Use: Never Used service: No Current occupational status: retired Current occupational exposures/hazards: No Sexual orientation: Unable to collect Gender identity: Unable to collect Cognitive needs: No Hearing needs: Yes Vision needs: Yes Review of Systems Const Denies chills and Denies fever(s) Card Reports no additional complaints and Denies syncope Resp Denies cough GI Denies abdominal pain and Denies heartburn Reports as per HPI and Denies change in libido Neuro Denies syncope Psych Denies change in libido Endo Denies change in libido Physical Exam Const General: cooperative, healthy appearing, comfortable and no acute distress Orientation/consciousness: patient oriented x3 HEENT Face and sinus: Yes normal facial exam Mouth: moist mucous membranes Neck Neck: Yes normal visual inspection, Yes full ROM and Yes trachea midline Chest Chest palpation & inspection: normal inspection of the chest Resp Effort & Inspection: normal respiratory effort, able to speak in complete sentences and no respiratory distress GI Inspection: Yes normal to inspection Back/Spine/Pelvis Cervical Spine: normal cervical lordosis Thoracic/Lumbar Spine: thoracic and lumbar spine normal to inspection Skin General skin exam: no rashes or lesions noted Neuro General: patient oriented x3, gait normal, tone normal and moves all extremities Extrem General: Yes normal to inspection and Yes capillary refill normal Results AMB Urinalysis, Automated UA Leukoctes 0 Pawan/uL Last Edit by JOJO Torres on 08/06/23 09:21 UA Nitrite Negative Last Edit by JOJO Torres on 08/06/23 09:21 UA Urobilinogen 0.2 mg/dL Last Edit by JOJO Torres on 08/06/23 09:2 1 UA Protein 30 mg/dL Last Edit by JOJO Torres on 08/06/23 09:21 UA pH 5.5 Last Edit by JOJO Torres on 08/06/23 09:21 UA Blood 10 Damien/uL Last Edit by JOJO Torres on 08/06/23 09:21 UA Specific [place] 1.020 Last Edit by JOJO Torres on 08/06/23 09: 21 UA Ketone Positive Last Edit by JOJO Torres on 08/06/23 09:21 UA Bilirubin 0 mg/dL Last Edit by JOJO Torres on 08/06/23 09:21 UA Glucose 0 mg/dL Last Edit by JOJO Torres on 08/06/23 09:21 Results Reviewed Results Reviewed: Laboratory Last Values Urine pH (Auto) 5.5 08/06/23 09:20 Specific [place] (Auto) 1.020 08/06/23 09:20 Urine Protein (Auto) 30 mg/dL 08/06/23 09:20 Glucose (UA)(Auto) 0 mg/dL 08/06/23 09:20 Urine Ketones (Auto) Positive 08/06/23 09:20 Urine Blood (Auto) 10 Damien/uL 08/06/23 09:20 Urine Nitrite (Auto) Negative 08/06/23 09:20 Urine Bilirubin (Auto) 0 mg/dL 08/06/23 09:20 Urine Urobilinogen (Auto) 0.2 mg/dL 08/06/23 09:20 Leukocyte Esterase (Auto) 0 Pawan/uL 08/06/23 09:20 Assessment & Plan Assessment & Plan (1) Elevated PSA: Code(s): R97.20 - Elevated prostate specific antigen [PSA] Category: Medical Plan Six-month follow-up PSA Orders: Orders AMB Urinalysis Automated Today Z13.9 - Encounter for screening, unspecified PSA,Total (Free>4and<10) 6 Months R97.20 - Elevated prostate specific antigen [PSA] Patient Instructions: Imaging studies, laboratory and physical exam results were discussed and reviewed in detail. No major barriers to patient understanding were identified. An opportunity to ask questions regarding the treatment plan was provided. All questions were answered. The patient expressed understanding and agreement with the above treatment plan. The patient is aware they should contact our office by phone for worsening of their current condition or the appearance of new urologic symptoms. Compliance is encouraged with any medications and followup testing that is ordered. It is a privilege to participate in the urologic care of your patient. If you have any questions or concerns regarding treatment for the above conditions, or other urologic issues, please do not hesitate to contact me. The office telephone contact is [phone]. This note is constructed using voice recognition software. While every effort has been made to ensure accuracy senior instructional designer errors may have been included. Yours sincerely, Dr Osvaldo De La Rosa MD, [facility] - Urology Providers of Expert, Compassionate Care for the Genitourinary System Coding Level of Care Code Est Pt Level 3 (79896) Diagnoses Elevated PSA R97.20
== END 2023-08-06 09:41 | disposition home or self-care (01) ==
LOC: HO.HUSH 09:01
PROVIDERS: PCP Nurse Practitioner Family; Visit Provider Urology
DX: R97.20 Elevated prostate specific antigen [PSA] (principal); Z13.9 Encounter for screening, unspecified
CPT/HCPCS: 99213

== ENCOUNTER → 2023-08-06 08:58 | Outpatient (BNVA) | payer OTHER, SELFPAY | PROVIDERS: PCP Nurse Practitioner Family; Visit Provider Urology | DX: R97.20 Elevated prostate specific antigen [PSA] (principal) | CPT/HCPCS: 81003 ==

== ENCOUNTER 2023-08-07 07:54 | Outpatient (AMB) | payer OTHER, SELFPAY ==
--- NOTE | 2023-08-07 07:59 | A.OFFPC_ITS ---
Vital Signs 08/07/23 08:09 08/07/23 08:24 Height 5 ft 8 in Weight 159 lb BMI 24.2 BP 118/58 L 118/60 Blood Pressure Location Lt brachial Rt brachial Position Sitting Sitting Respiration 16 Pulse 47 L 51 Pulse Source Pulse Oximeter Auscultation Temp 97.8 F Temp Source Temporal Artery Scan Pulse Oximetry (%) 99 Oxygen Delivery Method Room Air Intake Visit Reasons: follow up anxiety depression Intake Note: patient here for follow up anxiety and depression. 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: No Allergies tamsulosin Allergy (Unknown, Verified 08/07/23 08:14) dizziness, weakness Medication List - Last Reconciled 08/07/23 by George Spring CNP amlodipine 10 mg PO DAILY 90 days apixaban (Eliquis) 5 mg PO BID 90 days atorvastatin 80 mg PO DAILY 90 days buspirone 10 mg PO BID 30 days cetirizine (Zyrtec) 10 mg PO DAILY 30 days cholecalciferol (vitamin D3) 50 mcg PO DAILY donepezil 10 mg PO DAILY 30 days irbesartan 300 mg PO DAILY miscellaneous medical supply 1 cane for ambulation psyllium husk (Metamucil) 1 tbsp PO BID 30 days sertraline 100 mg PO DAILY 30 days Tobacco use date assessed: 03/20/23 Fall risk assessment: 1 Fall in past year Dental Screening Dental Screen Date: 04/24/23 HPI HPI Comments History of Present Illness Details 83-year-old male presents for anxiety an d depression follow-up He admits to taking his medications as prescribed without adverse reactions He reports improved anxiety and depression symptoms. He generally energetic. He sleeps well He offers no complaints and denies acute symptoms at this time [facility] Medical History Hypertension Erectile dysfunction Feeling of incomplete bladder emptying Post-void dribbling Weak urinary stream Nocturia Elevated PSA Surgical History Hx of inguinal hernia repair Hx of arthroscopy of right knee Hx of colonoscopy Family History Father Prostate cancer Social History Household Members: Friend(s) Housing: Apartment Alcohol intake: current Alcohol intake frequency: holidays/special occasions only Patient Tobacco Use Status: Former Tobacco user e-Cigarette/Vaping Use: Never Used service: No Current occupational status: retired Current occupational exposures/hazards: No Sexual orientation: Unable to collect Gender identity: Unable to collect Cognitive needs: No Hearing needs: Yes Vision needs: Yes Questionnaire PHQ-9 Over the last 2 weeks, how often have you been bothered by any of the following problems? 1. Little interest or pleasure in doing things: more than half the days 2. Feeling down, depressed, or hopeless: several days 3. Trouble falling or staying asleep, or sleeping too much: not at all 4. Feeling tired or having little energy: several days 5. Poor appetite or overeating: more than half the days 6. Feeling bad about yourself - or that you are a failure or have let yourself or your family down: not at all 7. Trouble concentrating on things, such as reading the newspaper or watching television: not at all 8. Moving or speaking so slowly that other people could have noticed. Or the opposite - being so fidgety or restless that you have been moving around a lot more than usual: several days 9. Thoughts that you would be better off or of hurting yourself in some way: not at all Total score: 7 Depression Screening Interpretation: Positive Depression Screening Follow-up: Existing condition and In treatment Depression Screening Done: Yes 84298 - PHQ-9 Billing: Yes Source: Developed by Drs. Domo Mckinley, Cindi Mcfadden, Randy Sotelo and colleagues, with an educational petey from [employer]. Thrive Questionnaire Date Thrive assessed: 08/07/23 I am a: Patient What is your living situation today?: I have a steady place to live Within the past 12 months, did the food you bought not last and you didn't have the money to get more?: Never true Do you have trouble paying for medicines?: No Do you have trouble getting transportation to medical appointments?: No Do you have trouble paying your heating and electricity bill?: No Do you have trouble taking care of your child, family member or friend?: No Do you have trouble with day-to-day activities such as bathing, preparing meals, shopping, managing finances, etc.?: No Are you currently unemployed and looking for a job?: No Are you interested in more education?: No Please select the resources that you would like help with: None Currently or been in a relationship where the following occur: No concerns reported THRIVE Score: 0 CORBIN-7 AMB Questionnaire CORBIN-7 Date CORBIN - 7 assessed: 08/07/23 Feeling nervous, anxious, or on edge: 1 = Several days Not being able to stop or control worryin = Several days Worrying too much about different things: 1 = Several days Trouble relaxin = Several days Being so restless that it is hard to sit still: 1 = Several days Becoming easily annoyed or irritable: 1 = Several days Feeling afraid as if something awful might happen: 1 = Several days Total CORBIN-7 score (0-4 normal; 5-9 mild; 10-14 moderate; 15-21 severe): 7 Source: Developed by Drs. Domo Mckinley, Cinid Mcfadden, Randy Sotelo and colleagues, with an educational petey from [employer]. CORBIN-7 Assessment Billing CORBIN-7 Assessment Tool: CORBIN-7 Assessment 84886 Review of Systems Const Details: Const Denies chills, Denies fatigue, Denies fever(s), Denies headache(s) and Denies weakness ENT Denies dizziness and Denies headache(s) Card Denies chest pain, Denies lightheadedness, Denies dyspnea and Denies other (Palpitations) Resp Denies cough, Denies dyspnea, Denies wheezing and Denies other ( shortness of breath) GI Denies abdominal pain, Denies melena, Denies hematochezia, Denies change in bowel habits, Denies dyspepsia and Denies nausea Denies hematuria and Denies dysuria Musc Denies abnormal gait, Denies myalgias, Denies arthralgias, Denies numbness and Denies tingling Skin/Breast Denies rash, Denies unusual bruising and Denies wounds Neuro Denies abnormal gait, Denies dizziness, Denies headache(s), Denies memory loss, Denies numbness, Denies Sensory deficit (Neuro), Denies tingling and Denies weakness Psych Denies anxiety, Denies depression, Denies memory loss Endo Denies cold intolerance, Denies fatigue, Denies heat intolerance, Denies polydipsia and Denies polyuria Aller/Immun Denies wheezing Physical exam (Primary Care) Tobacco/Smoking Status: Tobacco use Status Tobacco use date assessed 03/20/23 08/07/23 08:01 Patient Tobacco Use Status Former Tobacco user 08/07/23 08:01 e-Cigarette/Vaping Use Never Used 08/07/23 08:01 Depression Screening Interpretation: Positive Depression Screening Follow-up: Existing condition and In treatment Thrive Assessment: Date of Thrive Assessment Date Thrive assessed 12/26/22 08/07/23 08:01 Currently or been in a relationship where the following occur: No concerns reported Const Other: General: no acute distress and well developed Nutritional Appearance: well nourished Orientation/consciousness: patient oriented x3 HENMT Head: Yes normocephalic and Yes atraumatic Eyes General: appearance normal, both eyes and all related structures Pupils: Equal, round and reactive pupils present EOM: EOMs intact bilaterally Resp Effort & Inspection: normal respiratory effort Auscultation: clear to auscultation bilaterally Cardio Rate: regular rate Rhythm: regular rhythm Heart sounds: S1 normal heart sound present, S2 normal heart sound present, no gallops, no murmurs and no rubs GI Palpation (GI): No Abdominal aortic bruit present, Soft to palpation, nontender, No hepatosplenomegaly present and No Rebound tenderness present Auscultation: normal bowel sounds General: Yes no CVA tenderness Back/Spine/Pelvis Back: no CVA tenderness Cervical Spine: cervical ROM normal and No Cervical spine tenderness Thoracic/Lumbar Spine: thoraco-lumbar ROM normal, No pain with thoraco-lumbar ROM, No thoracic spinal tenderness and No lumbar spinal tenderness Extrem General: Yes normal to inspection, No edema and No calf tenderness Skin General: warm and dry. Normal skin color. Normal skin turgor Neuro General: patient oriented x3, gait normal and no focal neuro deficit Cranial nerves: Yes Equal, round and reactive pupils present Cognition (Neuro): normal cognition Gait exam (Neuro): Normal gait present Sensory Exam: No Sensory deficit (Neuro) Psych Appearance: grossly normal Affect: normal affect Attitude: cooperative Thought process: Normal thought process present Assessment and Plan Assessment & Plan (1) Anxiety and depression: Code(s): F41.9 - Anxiety disorder, unspecified; F32.A - Depression, unspecified Plan: Improved anxiety and depression symptoms PHQ-9 and COBRIN-7 scores revealed moderate depression and anxiety Continue current treatment regimen Routine exercise encouraged Follow-up in 3 months or sooner with worsening or new symptoms Verbalized understanding and agreed with treatment plan (2) Hypertension: Code(s): I10 - Essential (primary) hypertension Qualifiers: Hypertension type: primary hypertension Qualified Code(s): I10 - Essential (primary) hypertension Plan: Resting blood pressure is 118/60, within goal of less than 130/80 Continue current treatment regimen Low-sodium diet encouraged Follow-up in 3 months Verbalized understanding and agreed with the plan Coding Level of Care Code Est Pt Level 4 (29614) Complex EM visit Add On G2211 Diagnoses Anxiety and depression F41.9; F32.A Primary hypertension I10 Hypertension type: primary hypertension Additional Codes CORBIN-7 Assessment Billing - CORBIN-7 Assessment Tool: CORBIN-7 Assessment 63674 ([id number])
[2023-08-07 08:09] VITALS: BP 118/58; PULSE 47; TEMP 36.6; O2SAT 99; BMI 24.2
[2023-08-07 08:24] VITALS: BP 118/60; PULSE 51; RESP 16
== END 2023-08-07 08:33 | disposition home or self-care (01) ==
PROVIDERS: PCP Nurse Practitioner Family; Visit Provider Nurse Practitioner Family
DX: F41.9 Anxiety disorder, unspecified (principal); F32.A Depression, unspecified; I10 Essential (primary) hypertension
CPT/HCPCS: 99214

== ENCOUNTER → 2023-08-20 08:00 | Outpatient (REF) | payer OTHER, SELFPAY ==
--- NOTE | 2023-08-20 08:06 | HM_ITS ---
* Total monitoring time 3 days. * Underlying rhythm is atrial fibrillation. Average ventricular rate 51/Min. About 73% of the time, rate < 60/Min. * Rare PVCs. * No significant pauses or high-grade AV blocks. * No patient markers or diary events. MTDD
== END ==
LOC: HO.CARD 08:00
PROVIDERS: PCP Nurse Practitioner Family; Visit Provider Internal Medicine
DX: I48.19 Other persistent atrial fibrillation (principal)
CPT/HCPCS: 93242

== ENCOUNTER → 2023-08-20 08:06 | Outpatient (BNV) | payer OTHER, SELFPAY | PROVIDERS: PCP Nurse Practitioner Family; Visit Provider Internal Medicine | DX: I48.91 Unspecified atrial fibrillation (principal) | CPT/HCPCS: 93244 ==

== ENCOUNTER 2023-08-21 06:53 | Outpatient (REF) | payer OTHER, SELFPAY | END 2023-08-21 06:54 | disposition home or self-care (01) | LOC: HO.MRI 06:53 | PROVIDERS: PCP Nurse Practitioner Family; Visit Provider Physical Medicine & Rehabilitation | DX: Z13.89 Encounter for screening for other disorder (principal) ==

== ENCOUNTER 2023-09-07 08:55 | Outpatient (AMB) | payer OTHER, SELFPAY ==
[2023-09-07 09:17] VITALS: BP 120/60; PULSE 98; BMI 23.6
--- NOTE | 2023-09-07 09:17 | MHC.OFFVIS ---
Vital Signs 09/07/23 09:17 Height 5 ft 8 in Weight 155 lb BMI 23.6 BP 120/60 Blood Pressure Location Lt brachial Position Sitting Pulse 98 Pulse Source Pulse Oximeter Intake Visit Reasons: 6 month fu after holter Allergies tamsulosin Allergy (Unknown, Verified 08/07/23 08:14) dizziness, weakness Medication List - Last Reconciled 09/07/23 by Juan Arteaga MD amlodipine 10 mg PO DAILY 90 days apixaban (Eliquis) 5 mg PO BID 90 days atenolol 50 mg PO DAILY atorvastatin 80 mg PO DAILY 90 days buspirone 10 mg PO BID 30 days cetirizine (Zyrtec) 10 mg PO DAILY 30 days cholecalciferol (vitamin D3) 50 mcg PO DAILY donepezil 10 mg PO DAILY 30 days irbesartan 300 mg PO DAILY miscellaneous medical supply 1 cane for ambulation psyllium husk (Metamucil) 1 tbsp PO BID 30 days sertraline 100 mg PO DAILY 30 days HPI Comments Details: Akil returns for follow-up regarding atrial fibrillation. Overall, he states he feels good. No cardiac complaints whatsoever. In the past, he was complaining of lot of tiredness and he was on metoprolol. Then he was switched to atenolol. After that, tiredness seems pretty much resolved. No known coronary disease or myocardial infarction or cardiomyopathy. He does have ongoing memory issues and he states he is very forgetful. [facility] Medical History Hypertension Erectile dysfunction Feeling of incomplete bladder emptying Post-void dribbling Weak urinary stream Nocturia Elevated PSA Surgical History Hx of inguinal hernia repair Hx of arthroscopy of right knee Hx of colonoscopy Family History Father Prostate cancer Social History Household Members: Friend(s) Housing: Apartment Alcohol intake: current Alcohol intake frequency: holidays/special occasions only Patient Tobacco Use Status: Former Tobacco user e-Cigarette/Vaping Use: Never Used service: No Current occupational status: retired Current occupational exposures/hazards: No Sexual orientation: Unable to collect Gender identity: Unable to collect Cognitive needs: No Hearing needs: Yes Vision needs: Yes Review of Systems Const All systems reviewed & are unremarkable except as noted in HPI and below Reports as per HPI and Reports no additional complaints Eyes Reports as per HPI and Denies no additional complaints ENT Denies no additional complaints and Reports as per HPI Card Reports as per HPI, Reports no additional complaints, Denies acrocyanosis, Denies chest pain, Denies leg edema, Denies lightheadedness, Denies palpitations and Denies dyspnea Resp Reports as per HPI, Denies no additional complaints and Denies dyspnea GI Reports as per HPI and Denies no additional complaints Reports no additional complaints and Reports as per HPI Musc Reports no additional complaints and Reports as per HPI Skin/Breast Reports system reviewed and no additional complaints, except as documented Neuro Reports no additional complaints and Reports as per HPI Psych Reports no additional complaints and Reports as per HPI Endo Reports no additional complaints, Reports as per HPI and Denies palpitations Rigo/Lymph Reports no additional complaints and Reports as per HPI Aller/Immun Reports no additional complaints and Reports as per HPI Physical Exam Vital Signs: Last Vital Signs Pulse 98 09/07/23 09:17 BP 120/60 09/07/23 09:17 BMI result Body Mass Index 23.6 Const General: comfortable and no acute distress Orientation/consciousness: patient oriented x3 HEENT Other: Unremarkable Head: Yes normal to inspection Neck Neck: Yes normal visual inspection Chest Chest palpation & inspection: normal inspection of the chest Resp Auscultation: clear to auscultation bilaterally Cardio Palpation: normal PMI Heart sounds: S1 normal heart sound present, S2 normal heart sound present, no gallops, no murmurs and no rubs GI Palpation (GI): Soft to palpation Back/Spine/Pelvis Other: unremarkable Skin General skin exam: no rashes or lesions noted Neuro General: patient oriented x3 Extrem General: Yes normal to inspection Psych Mental Status: mental status grossly normal Assessment & Plan Assessment & Plan (1) Persistent atrial fibrillation: Code(s): I48.19 - Other persistent atrial fibrillation Category: Medical (2) Hypertension: Code(s): I10 - Essential (primary) hypertension Category: Medical Qualifiers: Hypertension type: primary hypertension Qualified Code(s): I10 - Essential (primary) hypertension (3) Anticoagulation management encounter: Code(s): Z51.81 - Encounter for therapeutic drug level monitoring; Z79.01 - [facility] (current) use of anticoagulants Category: Medical Plan Cardiac studies reviewed. Per [facility] discharge summary, echocardiogram was done at [facility] and that showed preserved LVEF, no wall motion abnormalities, no valvular issues or other concerns. Myocardial perfusion imaging study from [facility], April 2021 showed inferior perfusion defect thought to be from either diaphragmatic attenuation; could not exclude small area of ischemia. In the most recent Holter, underlying rhythm is atrial fibrillation with an average rate of 51/Min. Well controlled. Overall, well controlled atrial fibrillation. May remain on the current dose of beta-blockers. If necessary, we can cut back in the future. Continue anticoagulation without changes. For blood pressure, he seems to be on irbesartan/amlodipine. Seems stable. Coding Level of Care Code Est Pt Level 4 (33115) Diagnoses Persistent atrial fibrillation I48.19 Primary hypertension I10 Hypertension type: primary hypertension Anticoagulation management encounter Z51.81; Z79.01
== END 2023-09-07 09:33 | disposition home or self-care (01) ==
PROVIDERS: PCP Nurse Practitioner Family; Visit Provider Internal Medicine
DX: I48.19 Other persistent atrial fibrillation (principal); I10 Essential (primary) hypertension; Z51.81 Encounter for therapeutic drug level monitoring; Z79.01 Long term (current) use of anticoagulants
CPT/HCPCS: 99214

== ENCOUNTER → 2023-09-07 08:55 | Outpatient (BNVA) | payer OTHER, SELFPAY | PROVIDERS: PCP Nurse Practitioner Family; Visit Provider Internal Medicine ==

== ENCOUNTER 2023-09-21 07:15 | Outpatient (REF) | payer OTHER, SELFPAY ==
--- NOTE | ~2023-09-21 | MR_ITS ---
EXAMINATION: MR LUMBAR SPINE WITHOUT CONTRAST CLINICAL INFORMATION: 83-year-old with spondylosis without myelopathy or radiculopathy, lumbar region. Self-reported low back pain 2 years duration. COMPARISON: 02/19/2023 x-rays. TECHNIQUE: MRI of the lumbar spine was obtained using routine sequences without contrast. FINDINGS: Coronal Alignment: There is wefc-lw-pozowdys lower lumbar levocurvature, convex to the left at approximately L3-L4, similar to the appearance on the previous x-rays. Sagittal Alignment: There is mild lordotic reversal centered at L1-L2, stable appearance. There is mild degrees of rotatory retrolisthesis at the levels between L2-L3 and L5-S1 inclusive, most apparent at L3-L4 similar to previous x-rays. Lumbosacral Junction: Transitional lumbosacral anatomy with lowest lumbar-like segment labeled as L5, which appears partially sacralized on the left with a pseudoarticulation with the adjacent left sacral lee with associated bony productive changes. Vertebral Bodies: Stable vertebral body heights. No interval compression fractures. Disc Spaces and Endplates: Advanced multilevel DDD and spondylosis noted between L1-L2 and L5-S1 inclusive, with severe degrees of disc space height loss, multilevel Schmorl's nodes, intrameniscal degenerative signal changes and prominent spondylosis at these levels. Spinal Canal: No abnormal developmental findings. Bone Marrow: Multilevel type I degenerative marrow signal changes are seen along the endplates, most prominently at L1-L2, with type II degenerative marrow signal changes most prominently at L2-L3. Patchy zones of signal loss are seen along the anterior margins of the sacral alae bilaterally adjacent to the SI joints with adjacent bony productive changes, likely degenerative. Diffusely heterogeneous bone marrow signal intensity seen throughout the osseous structures is also noted, which is nonspecific and could be physiologic. Mild marrow edema is noted in the right L5 pedicle likely reactive. Conus Medullaris: Terminates at L1. Morphology and signal is normal. Intradural Nerve Roots: There is crowding of the intradural nerve roots most apparent at L2-3 with marked spinal canal stenosis at this level. Otherwise grossly within normal limits. L5-S1: There is concentric disc osteophyte complex, with prominent left paravertebral/posterolateral disc osteophyte complex. Minimal indentation of the ventral thecal sac is noted. There is jebf-qu-yjnurerv facet joint arthropathy, left more than right, without central canal stenosis. There is suspicion for a right subarticular caudally migrated extruded disc fragment impinging on the traversing right S1 nerve root in the lateral recess. This appears to be quite low in signal on T1-weighted imaging and may be partially desiccated or calcified. There is diuj-io-irukjgll right and severe left-sided neural foraminal stenosis, with left L5 nerve root impingement. Bony hypertrophic change from the left-sided pseudoarticulation appears to encroach on the extra foraminal soft tissues on the left at this level. L4-L5: There is concentric disc osteophyte complex with mild retrolisthesis asymmetric to the left with flattening of the ventral dural sac, left more than right. Dvcjrnpe-si-vnghtl right-sided and mxfv-fp-gumamlwg left-sided facet joint arthropathy is noted with ligamentum flavum thickening, asymmetric to the right. There is mild central canal stenosis, with left subarticular lateral recess stenosis encroaching on the traversing left L5 nerve root. Mild foraminal narrowing noted bilaterally with a disc osteophyte complex abutting the extra foraminal left L4 nerve root. L3-L4: Retrolisthesis, concentric disc osteophyte complex and flattening the ventral dural sac noted with ligamentum flavum thickening asymmetric to the right and moderate facet joint arthropathy bilaterally. There is moderate central spinal canal stenosis with some crowding of the intradural nerve roots and there is crowding of the subarticular zones bilaterally with some encroachment on the traversing L4 nerve roots, right more than left. Mild right and left neural foraminal narrowing. L2-L3: Concentric disc osteophyte complexes are noted with retrolisthesis and superimposed central to left paramedian extruded disc herniation with mild caudal migration. Marked flattening the ventral dural sac is noted. Prominent dorsal fat pad ligamentum flavum thickening and marked facet joint arthropathy with severe central spinal canal stenosis and marked crowding of the intradural nerve roots. There is firdlnam-ca-vhgxga bilateral subarticular/lateral recess stenosis likely encroaching on the traversing L3 nerve roots bilaterally. Mild foraminal narrowing noted bilaterally. L1-L2: Posterior lateral disc osteophyte complex noted bilaterally with underlying disc bulging and flattening the ventral dural sac. Mild facet joint arthrosis bilaterally and a prominent dorsal fat pad. No significant central canal stenosis. Mild narrowing of the right subarticular recess. Mild foraminal narrowing bilaterally. Paravertebral and Included Extraspinal Soft Tissues: There is posterior paraspinal and psoas muscle sarcopenia. Otherwise unremarkable. MR/MR lumbar spine wo con IMPRESSION: 1. Lumbar levoscoliosis, with multilevel subluxations as described above similar to previous x-rays. 2. Severe multilevel DDD and spondylosis, with multilevel disc osteophyte complexes, disc bulging and disc herniations as detailed by level above. 3. Multilevel bilateral facet joint arthropathy and ligamentum flavum thickening, with severe central spinal canal stenosis at L2-L3, moderate central spinal canal stenosis at L3-L4 and mild central spinal canal stenosis at L4-L5. Left subarticular recess stenosis at L4-L5, bilaterally at L3-L4, right more than left, and bilaterally at L2-L3 with multilevel traversing neural impingement as detailed by level above. 4. Probable sequestered caudally migrated extruded disc fragment in the right subarticular zone at L5-S1 impinging on the right S1 nerve root, which possibly could be either calcified or containing vacuum disc phenomenon. 5. Severe left-sided neural foraminal stenosis at L5-S1 with left L5 nerve root impingement. 6. Posterior paraspinal and psoas muscle sarcopenia. Electronically signed by: Reese Manzanares MD 10/15/2023 02:52 PM EDT
== END 2023-09-21 07:16 | disposition home or self-care (01) ==
LOC: HO.MRI 07:15
PROVIDERS: PCP Nurse Practitioner Family; Visit Provider Physical Medicine & Rehabilitation
DX: M47.816 Spondylosis without myelopathy or radiculopathy, lumbar region (principal); R26.89 Other abnormalities of gait and mobility
CPT/HCPCS: 72148

== ENCOUNTER 2023-10-28 10:49 | Outpatient (AMB) | payer OTHER, SELFPAY ==
--- NOTE | 2023-10-28 10:57 | A.OFFVIS_ITS ---
Intake Visit Reasons: OV- Lumbar spine MRI review Intake Note: Akil is a 83 year old male who presents today for an MRI review of his lumbar spine. Allergies tamsulosin Allergy (Unknown, Verified 10/28/23 10:57) dizziness, weakness Medication List - Last Reconciled 10/28/23 by Fatuma Harris MD amlodipine 10 mg PO DAILY 90 days apixaban (Eliquis) 5 mg PO BID 90 days atenolol 50 mg PO DAILY atorvastatin 80 mg PO DAILY 90 days buspirone 10 mg PO BID 30 days cetirizine (Zyrtec) 10 mg PO DAILY 30 days cholecalciferol (vitamin D3) 50 mcg PO DAILY donepezil 10 mg PO DAILY 30 days irbesartan 300 mg PO DAILY miscellaneous medical supply 1 cane for ambulation psyllium husk (Metamucil) 1 tbsp PO BID 30 days sertraline 100 mg PO DAILY 30 days HPI Comments Details: About 1-2 years of soreness, every time when he bends forward, worse when he gets up. Points to lower back. When he sits down, it goes away. He has started shuffling on gait and walking worsens pain. I saw on medical records that he was worked up for Parkinsons but was not diagnosed with it. He says he does have memory deficits. Denies claudication. No radiation to legs. No associated numbness on feet. He urinary incontinence, follows urology. He also had bowel incontinence, resolved with metamucil. History of atrial fib, prostrate. 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 Denies any sports injury. Last visit, no change. Back pain does not bother him unless he bends or lifts. Denies claudication. 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 Chronic loose stools, no incontinence, takes metamucil, follows PCP. [facility] Medical History (Updated 10/28/23 @ 11:38 by Fatuma Harris MD) Lumbar spinal stenosis Hypertension Erectile dysfunction Feeling of incomplete bladder emptying Post-void dribbling Weak urinary stream Nocturia Elevated PSA Surgical History Hx of inguinal hernia repair Hx of arthroscopy of right knee Hx of colonoscopy Family History Father Prostate cancer Social History Household Members: Friend(s) Housing: Apartment Alcohol intake: current Alcohol intake frequency: holidays/special occasions only Patient Tobacco Use Status: Former Tobacco user e-Cigarette/Vaping Use: Never Used service: No Current occupational status: retired Current occupational exposures/hazards: No Sexual orientation: Unable to collect Gender identity: Unable to collect Cognitive needs: No Hearing needs: Yes Vision needs: Yes Physical Exam Constitutional: Patient appears to be in no acute distress, well nourished and well developed. Patient was appropriately conversant and oriented. MSK: He stands stooped forward posture. Neurological: Neurologic examination of the upper and lower extremities was nonfocal with intact sensation, muscle stretch reflexes and without focal motor deficits . Tovar?s negative bilaterally. Babinski was down going bilaterally. Clonus was negative. Wide based gait for balance. Results Reviewed Results Reviewed: Ordering Physician: Fatuma Allen Date of Service: 09/21/23 Procedure(s): MR lumbar spine wo con Accession Number(s): [id number] cc: Fatuma Allen; [employer] EXAMINATION: MR LUMBAR SPINE WITHOUT CONTRAST CLINICAL INFORMATION: 83-year-old with spondylosis without myelopathy or radiculopathy, lumbar region. Self-reported low back pain 2 years duration. COMPARISON: 02/19/2023 x-rays. TECHNIQUE: MRI of the lumbar spine was obtained using routine sequences without contrast. FINDINGS: Coronal Alignment: There is xqvm-ep-wgnobcnn lower lumbar levocurvature, convex to the left at approximately L3-L4, similar to the appearance on the previous x-rays. Sagittal Alignment: There is mild lordotic reversal centered at L1-L2, stable appearance. There is mild degrees of rotatory retrolisthesis at the levels between L2-L3 and L5-S1 inclusive, most apparent at L3-L4 similar to previous x-rays. Lumbosacral Junction: Transitional lumbosacral anatomy with lowest lumbar-like segment labeled as L5, which appears partially sacralized on the left with a pseudoarticulation with the adjacent left sacral lee with associated bony productive changes. Vertebral Bodies: Stable vertebral body heights. No interval compression fractures. Disc Spaces and Endplates: Advanced multilevel DDD and spondylosis noted between L1-L2 and L5-S1 inclusive, with severe degrees of disc space height loss, multilevel Schmorl's nodes, intrameniscal degenerative signal changes and prominent spondylosis at these levels. Spinal Canal: No abnormal developmental findings. Bone Marrow: Multilevel type I degenerative marrow signal changes are seen along the endplates, most prominently at L1-L2, with type II degenerative marrow signal changes most prominently at L2-L3. Patchy zones of signal loss are seen along the anterior margins of the sacral alae bilaterally adjacent to the SI joints with adjacent bony productive changes, likely degenerative. Diffusely heterogeneous bone marrow signal intensity seen throughout the osseous structures is also noted, which is nonspecific and could be physiologic. Mild marrow edema is noted in the right L5 pedicle likely reactive. Conus Medullaris: Terminates at L1. Morphology and signal is normal. Intradural Nerve Roots: There is crowding of the intradural nerve roots most apparent at L2-3 with marked spinal canal stenosis at this level. Otherwise grossly within normal limits. L5-S1: There is concentric disc osteophyte complex, with prominent left paravertebral/posterolateral disc osteophyte complex. Minimal indentation of the ventral thecal sac is noted. There is xszr-us-vstlcyze facet joint arthropathy, left more than right, without central canal stenosis. There is suspicion for a right subarticular caudally migrated extruded disc fragment impinging on the traversing right S1 nerve root in the lateral recess. This appears to be quite low in signal on T1-weighted imaging and may be partially desiccated or calcified. There is afkw-cz-xgaxiuff right and severe left-sided neural foraminal stenosis, with left L5 nerve root impingement. Bony hypertrophic change from the left-sided pseudoarticulation appears to encroach on the extra foraminal soft tissues on the left at this level. L4-L5: There is concentric disc osteophyte complex with mild retrolisthesis asymmetric to the left with flattening of the ventral dural sac, left more than right. Hwvlxcog-if-klhcog right-sided and aoyj-yq-ezjzquxr left-sided facet joint arthropathy is noted with ligamentum flavum thickening, asymmetric to the right. There is mild central canal stenosis, with left subarticular lateral recess stenosis encroaching on the traversing left L5 nerve root. Mild foraminal narrowing noted bilaterally with a disc osteophyte complex abutting the extra foraminal left L4 nerve root. L3-L4: Retrolisthesis, concentric disc osteophyte complex and flattening the ventral dural sac noted with ligamentum flavum thickening asymmetric to the right and moderate facet joint arthropathy bilaterally. There is moderate central spinal canal stenosis with some crowding of the intradural nerve roots and there is crowding of the subarticular zones bilaterally with some encroachment on the traversing L4 nerve roots, right more than left. Mild right and left neural foraminal narrowing. L2-L3: Concentric disc osteophyte complexes are noted with retrolisthesis and superimposed central to left paramedian extruded disc herniation with mild caudal migration. Marked flattening the ventral dural sac is noted. Prominent dorsal fat pad ligamentum flavum thickening and marked facet joint arthropathy with severe central spinal canal stenosis and marked crowding of the intradural nerve roots. There is kpexkdxr-bp-calzeh bilateral subarticular/lateral recess stenosis likely encroaching on the traversing L3 nerve roots bilaterally. Mild foraminal narrowing noted bilaterally. L1-L2: Posterior lateral disc osteophyte complex noted bilaterally with underlying disc bulging and flattening the ventral dural sac. Mild facet joint arthrosis bilaterally and a prominent dorsal fat pad. No significant central canal stenosis. Mild narrowing of the right subarticular recess. Mild foraminal narrowing bilaterally. Paravertebral and Included Extraspinal Soft Tissues: There is posterior paraspinal and psoas muscle sarcopenia. Otherwise unremarkable. MR/MR lumbar spine wo con IMPRESSION: 1. Lumbar levoscoliosis, with multilevel subluxations as described above similar to previous x-rays. 2. Severe multilevel DDD and spondylosis, with multilevel disc osteophyte complexes, disc bulging and disc herniations as detailed by level above. 3. Multilevel bilateral facet joint arthropathy and ligamentum flavum thickening, with severe central spinal canal stenosis at L2-L3, moderate central spinal canal stenosis at L3-L4 and mild central spinal canal stenosis at L4-L5. Left subarticular recess stenosis at L4-L5, bilaterally at L3-L4, right more than left, and bilaterally at L2-L3 with multilevel traversing neural impingement as detailed by level above. 4. Probable sequestered caudally migrated extruded disc fragment in the right subarticular zone at L5-S1 impinging on the right S1 nerve root, which possibly could be either calcified or containing vacuum disc phenomenon. 5. Severe left-sided neural foraminal stenosis at L5-S1 with left L5 nerve root impingement. 6. Posterior paraspinal and psoas muscle sarcopenia. Electronically signed by: Reese Manzanares MD 10/15/2023 02:52 PM EDT RP Assessment & Plan Assessment & Plan (1) Lumbar spondylosis: Code(s): M47.816 - Spondylosis without myelopathy or radiculopathy, lumbar region Category: Medical (2) Lumbar degenerative disc disease: Code(s): M51.36 - Other intervertebral disc degeneration, lumbar region Category: Medical (3) Lumbar spinal stenosis: Code(s): M48.061 - Spinal stenosis, lumbar region without neurogenic claudication Category: Medical Qualifiers: Neurogenic claudication status: without neurogenic claudication Qualified Code(s): M48.061 - Spinal stenosis, lumbar region without neurogenic claudication Plan MRI shows multilevel spondylosis, degenerative disc and spinal stenosis. He does not complain of claudication symptoms. No pain unless he bends or picks something up. No neurologic deficits. He is doing well despite MRI. He defers injections or neurospine referral. Discussed fall prevention. Assessment and plan discussed with patient, and patient was agreeable. All questions were answered thoroughly. Follow up as needed. Fatuma Harris MD, NADIA Board Certified, [place] [employer] and [employer] (ABPMR) Board Certified, [place] [employer] (ABEM) Coding Level of Care Code Est Pt Level 3 (13610) Diagnoses Lumbar spondylosis M47.816 Lumbar degenerative disc disease M51.36 Spinal stenosis of lumbar region without neurogenic claudication M48.061 Neurogenic claudication status: without neurogenic claudication
== END 2023-10-28 11:13 | disposition home or self-care (01) ==
PROVIDERS: PCP Nurse Practitioner Family; Visit Provider Physical Medicine & Rehabilitation
DX: M47.816 Spondylosis without myelopathy or radiculopathy, lumbar region (principal); M51.36 Other intervertebral disc degeneration, lumbar region; M48.061 Spinal stenosis, lumbar region without neurogenic claudication
CPT/HCPCS: 99213

== ENCOUNTER → 2023-10-28 10:49 | Outpatient (BNVA) | payer OTHER, SELFPAY | PROVIDERS: PCP Nurse Practitioner Family; Visit Provider Physical Medicine & Rehabilitation ==

== ENCOUNTER 2023-11-06 08:08 | Outpatient (AMB) | payer OTHER, SELFPAY ==
--- NOTE | 2023-11-06 08:11 | A.OFFPC_ITS ---
Vital Signs 11/06/23 08:20 Height 5 ft 8 in Weight 163 lb 6 oz BMI 24.8 BP 120/70 Blood Pressure Location Lt brachial Position Sitting Respiration 16 Pulse 52 Pulse Source Auscultation Temp 97.7 F Temp Source Oral Pulse Oximetry (%) 98 Oxygen Delivery Method Room Air Intake Visit Reasons: mos anxiety, depression, HTN Intake Note: patient here for follow up on anxiety,depression and HTN Confidential Investigator Required: No Allergies tamsulosin Allergy (Unknown, Verified 11/06/23 08:28) dizziness, weakness Medication List - Last Reconciled 11/06/23 by George Spring CNP amlodipine 10 mg PO DAILY 90 days apixaban (Eliquis) 5 mg PO BID 90 days atenolol 50 mg PO DAILY atorvastatin 80 mg PO DAILY 90 days buspirone 10 mg PO BID 30 days cetirizine (Zyrtec) 10 mg PO DAILY 30 days cholecalciferol (vitamin D3) 50 mcg PO DAILY donepezil 10 mg PO DAILY 30 days irbesartan 300 mg PO DAILY miscellaneous medical supply 1 cane for ambulation psyllium husk (Metamucil) 1 tbsp PO BID 30 days sertraline 100 mg PO DAILY 30 days Tobacco use date assessed: 11/06/23 Fall risk assessment: 1 Fall in past year Last assessed Fall Risk: 11/06/23 Dental Screening Dental Screen Date: 11/06/23 Did you have a dental visit in the last 12 months?: Yes Did you have a dental problem in the last 6 months where you did not have access to dental care?: No Was dental information given to patient?: Patient has dentist HPI HPI Comments History of Present Illness Details 83-year-old male presents for hypertensi on, anxiety, and depression follow-up He admits to taking his medications as prescribed without adverse reactions He reports continued cognitive decline. He is very forgetful and recall has been poor. He has h/o dementia and on donepezil which he admits to taking daily as pr escribed. However, donepezil was last refill by his PCP on 08/19/2022 He denies acute symptoms at this time [facility] Medical History (Updated 11/06/23 @ 09:04 by George Spring CNP) Lumbar spinal stenosis Hypertension Erectile dysfunction Feeling of incomplete bladder emptying Post-void dribbling Weak urinary stream Nocturia Elevated PSA Surgical History Hx of inguinal hernia repair Hx of arthroscopy of right knee Hx of colonoscopy Family History Father Prostate cancer Social History Household Members: Friend(s) Housing: Apartment Alcohol intake: current Alcohol intake frequency: holidays/special occasions only Patient Tobacco Use Status: Former Tobacco user e-Cigarette/Vaping Use: Never Used service: No Current occupational status: retired Current occupational exposures/hazards: No Sexual orientation: Unable to collect Gender identity: Unable to collect Cognitive needs: No Hearing needs: Yes Vision needs: Yes Questionnaire PHQ-9 Over the last 2 weeks, how often have you been bothered by any of the following problems? 1. Little interest or pleasure in doing things: several days 2. Feeling down, depressed, or hopeless: several days 3. Trouble falling or staying asleep, or sleeping too much: several days 4. Feeling tired or having little energy: several days 5. Poor appetite or overeating: not at all 6. Feeling bad about yourself - or that you are a failure or have let yourself or your family down: several days 7. Trouble concentrating on things, such as reading the newspaper or watching t elevision: not at all 8. Moving or speaking so slowly that other people could have noticed. Or the opposite - being so fidgety or restless that you have been moving around a lot more than usual: several days 9. Thoughts that you would be better off or of hurting yourself in some way: not at all Total score: 6 Depression Screening Interpretation: Positive Depression Screening Follow-up: Existing condition and In treatment Depression Screening Done: Yes 92366 - PHQ-9 Billing: Yes Source: Developed by Drs. Domo Mckinley, Cindi Mcfadden, Randy Sotelo and colleagues, with an educational petey from [employer]. Thrive Questionnaire Date Thrive assessed: 08/07/23 AUDIT C Alcohol Use Questionnaire (AUDIT-C) 2. How many drinks containing alcohol do you have on a typical day when you are drinking?: 1 or 2 3. How often do you have six or more drinks on one occasion?: Never Total Score: 0 CORBIN-7 AMB Questionnaire CORBIN-7 Date CORBIN - 7 assessed: 11/06/23 Feeling nervous, anxious, or on edge: 1 = Several days Not being able to stop or control worryin = Not at all Worrying too much about different things: 1 = Several days Trouble relaxin = Not at all Being so restless that it is hard to sit still: 0 = Not at all Becoming easily annoyed or irritable: 1 = Several days Feeling afraid as if something awful might happen: 1 = Several days Total CORBIN-7 score (0-4 normal; 5-9 mild; 10-14 moderate; 15-21 severe): 4 Source: Developed by Drs. Domo Mckinley, Cindi Mcfadden, Randy Sotelo and colleagues, with an educational petey from [employer]. CORBIN-7 Assessment Billing CORBIN-7 Assessment Tool: CORBIN-7 Assessment 40996 Review of Systems Const Details: Const Denies chills, Denies fatigue, Denies fever(s), Denies headache(s) and Denies weakness ENT Denies dizziness and Denies headache(s) Card Denies chest pain, Denies lightheadedness, Denies dyspnea and Denies other (Palpitations) Resp Denies cough, Denies dyspnea, Denies wheezing and Denies other ( shortness of breath) GI Denies abdominal pain, Denies melena, Denies hematochezia, Denies change in bowel habits, Denies dyspepsia and Denies nausea Denies hematuria and Denies dysuria Musc Denies abnormal gait, Denies myalgias, Denies arthralgias, Denies numbness and Denies tingling Skin/Breast Denies rash, Denies unusual bruising and Denies wounds Neuro Denies abnormal gait, Denies dizziness, Denies headache(s), Denies memory loss, Denies numbness, Denies Sensory deficit (Neuro), Denies tingling and Denies weakness Psych Reports anxiety, Denies depression, Reports memory loss Endo Denies cold intolerance, Denies fatigue, Denies heat intolerance, Denies polydipsia and Denies polyuria Aller/Immun Denies wheezing Physical exam (Primary Care) Vital Signs: Last Vital Signs Temp 97.7 F 11/06/23 08:20 Pulse 52 11/06/23 08:20 Resp 16 11/06/23 08:20 BP 120/70 11/06/23 08:20 Pulse Ox 98 11/06/23 08:20 Oxygen Delivery Method Room Air 11/06/23 08:20 BMI result Body Mass Index 24.8 Tobacco/Smoking Status: Tobacco use Status Tobacco use date assessed 11/06/23 11/06/23 08:20 Patient Tobacco Use Status Former Tobacco user 11/06/23 08:13 e-Cigarette/Vaping Use Never Used 11/06/23 08:13 PHQ-9: PHQ-9 Score PHQ-9: Total score 6 11/06/23 08:34 Depression Screening Interpretation: Positive Depression Screening Follow-up: Existing condition and In treatment Thrive Assessment: Date of Thrive Assessment Date Thrive assessed 08/07/23 11/06/23 08:13 Const Other: General: no acute distress and well developed Nutritional Appearance: well nourished Orientation/consciousness: patient oriented x3 HENMT Head: Yes normocephalic and Yes atraumatic Eyes General: appearance normal, both eyes and all related structures Pupils: Equal, round and reactive pupils present EOM: EOMs intact bilaterally Resp Effort & Inspection: normal respiratory effort Auscultation: clear to auscultation bilaterally Cardio Rate: regular rate Rhythm: regular rhythm Heart sounds: S1 normal heart sound present, S2 normal heart sound present, no gallops, no murmurs and no rubs GI Palpation (GI): No Abdominal aortic bruit present, Soft to palpation, nontender, No hepatosplenomegaly present and No Rebound tenderness present Auscultation: normal bowel sounds General: Yes no CVA tenderness Back/Spine/Pelvis Back: no CVA tenderness Cervical Spine: cervical ROM normal and No Cervical spine tenderness Thoracic/Lumbar Spine: thoraco-lumbar ROM normal, No pain with thoraco-lumbar ROM, No thoracic spinal tenderness and No lumbar spinal tenderness Extrem General: Yes normal to inspection, No edema and No calf tenderness Skin General: warm and dry. Normal skin color. Normal skin turgor Neuro General: patient oriented x3, shuffling gait and no focal neuro deficit Cranial nerves: Yes Equal, round and reactive pupils present Cognition (Neuro): normal cognition Gait exam (Neuro): Shuffling gait present Sensory Exam: No Sensory deficit (Neuro) Psych Appearance: grossly normal Affect: normal affect Attitude: cooperative Thought process: Normal thought process present Assessment and Plan Assessment & Plan (1) Hypertension: Code(s): I10 - Essential (primary) hypertension Qualifiers: Hypertension type: primary hypertension Qualified Code(s): I10 - Essential (primary) hypertension Plan: Blood pressure is 120/60, within goal of less than 130/80 Continue current treatment regimen Low-sodium diet encouraged Follow-up in 3 months for an extended physical exam or return sooner with symptoms or concerns Verbalized understanding and agreed with the treatment plan (2) Anxiety and depression: Code(s): F41.9 - Anxiety disorder, unspecified; F32.A - Depression, unspecified Plan: Reports controlled anxiety and depression symptoms PHQ-9 score revealed mild depression. CORBIN-7 score is normal Continue current treatment regimen Routine exercise encouraged Follow-up in 3 months Verbalized understanding and agreed with the plan (3) Dementia: Code(s): F03.90 - Unspecified dementia, unspecified severity, without behavioral disturbance, psychotic disturbance, mood disturbance, and anxiety Plan: History of dementia Reports continued memory decline No focal neuro deficits The MA call the patient's pharmacy and verify the his donepezil he is being refilled by Jacobo Valdivia MD, neurology Advised to continue to take donepezil as prescribed Follow-up with Neurology as planned Return with worsening or new symptoms Verbalized understanding and agreed with the treatment plan Orders: Orders Complete Blood Count Auto Diff Today Z00.00 - Encounter for general adult medical examination without abnormal findings Lipid Panel Today Z00.00 - Encounter for general adult medical examination without abnormal findings UA CC w/rflx Micro + Cult Today Z00.00 - Encounter for general adult medical examination without abnormal findings Vitamin D 25-OH Total Today Z00.00 - Encounter for general adult medical examination without abnormal findings Comprehensive [place]. Panel Fast Today Z00.00 - Encounter for general adult medical examination without abnormal findings TSH reflex Free T4 Today Z00.00 - Encounter for general adult medical examination without abnormal findings Microalbumin, Random (w Creat) Today Z00.00 - Encounter for general adult medical examination without abnormal findings Medications: Refilled cetirizine (Zyrtec) 10 mg PO DAILY 30 tabs 3RF 30 days sertraline 100 mg PO DAILY 30 tabs 3RF 30 days Coding Level of Care Code Est Pt Level 4 (37036) Diagnoses Primary hypertension I10 Hypertension type: primary hypertension Anxiety and depression F41.9; F32.A Dementia F03.90 Additional Codes CORBIN-7 Assessment Billing - CORBIN-7 Assessment Tool: CORBIN-7 Assessment 44452 ([id number])
[2023-11-06 08:20] VITALS: BP 120/70; PULSE 52; RESP 16; TEMP 36.5; O2SAT 98; BMI 24.8
== END 2023-11-06 08:45 | disposition home or self-care (01) ==
PROVIDERS: PCP Nurse Practitioner Family; Visit Provider Nurse Practitioner Family
DX: I10 Essential (primary) hypertension (principal); F41.9 Anxiety disorder, unspecified; F32.A Depression, unspecified; F03.90 Unspecified dementia, unspecified severity, without behavioral disturbance, psychotic disturbance, mood disturbance, and anxiety

== ENCOUNTER → 2023-11-06 08:08 | Outpatient (BNVA) | payer OTHER, SELFPAY | PROVIDERS: PCP Nurse Practitioner Family; Visit Provider Nurse Practitioner Family | DX: F41.9 Anxiety disorder, unspecified (principal); F32.A Depression, unspecified; F03.90 Unspecified dementia, unspecified severity, without behavioral disturbance, psychotic disturbance, mood disturbance, and anxiety; Z79.899 Other long term (current) drug therapy | CPT/HCPCS: 96127 ==

== ENCOUNTER 2024-01-05 09:19 | Outpatient (REF) | payer OTHER, SELFPAY ==
[2024-01-05 11:41] LABS: PSA,Total (Free>4and<10) 5.59 ng/mL (0.00-4.00)
[2024-01-06 11:09] LABS: Percent Free Prostate Spec Ag 33 % (calc) (>25); Prostate Specific Ag Total 6.1 ng/mL (< OR = 4.0)
== END 2024-01-05 09:20 | disposition home or self-care (01) ==
LOC: HO.LAB 09:19
PROVIDERS: PCP Nurse Practitioner Family; Visit Provider Urology
DX: R97.20 Elevated prostate specific antigen [PSA] (principal); Z12.5 Encounter for screening for malignant neoplasm of prostate
CPT/HCPCS: 36415; 84153; 84154

== ENCOUNTER 2024-01-12 10:17 | Outpatient (AMB) | payer OTHER, SELFPAY ==
--- NOTE | 2024-01-12 10:18 | A.OFFVIS_ITS ---
Intake Visit Reasons: 6M PSA(set) Intake Note: Patient is present for6M PSA Urology Medication:NONE Antibiotic Allergy:TAMSULOSIN Blood Thinner:YouTube Design Chief Required: No Allergies tamsulosin Allergy (Unknown, Verified 01/12/24 10:26) dizziness, weakness HPI Comments Details: Olman SALGADO is a very pleasant male. He is a patient of Dr. Spring. He is seen in the office today for the following urologic conditions. - lower urinary tract symptoms BRETT 3+ normal PSA slowly rising - to be expected off finasteride Starting to have some degree of bladder instability but not interested in medications Continue surveillance Lower Urinary Tract Symptoms:? Current visit is for?further evaluation of, lower urinary tract symptoms, predominate obstructive symptoms ?- father with prostate cancer.? Prior treatments include? - Had been managed for 3 years with another urologist. Treatment focused on terazosin and oxybutynin. No estimate of prostate size. Had previously been on finasteride but experienced declined libido. ?06/26 , laser procedure.? Prostate Symptom Score?02/26 , Moderate (9-19), Bother 3 ? Symptoms include?02/26 , incomplete emptying, weak stream, nocturia (>2), urgency, and are progressing.? Results from testing include? cystoscopy ?high riding bladder neck (median bar) trabeculations 03/29 ? renal/bladder us ?Yes ? date ?03/27/2017 thickend wall with trabeculations ? PVR ?26 ? prostate size ?50 ? Prior Prostate Score?unknown.? PSA?01/26 1.4 - 08/29 3.7, 03/02 3.6, 08/30 3.7, 08/01 4.6 F 37%, 04/04 13, 08/02 5.0 32% free, 01/02 5.6 33% ? Prostate volume?50+gm.? Testing at next visit will include?bladder scan.? Treatment plan?Continue with surveillance. [facility], [facility] Medical History (Updated 11/06/23 @ 09:04 by George Spring CNP) Lumbar spinal stenosis Hypertension Erectile dysfunction Feeling of incomplete bladder emptying Post-void dribbling Weak urinary stream Nocturia Elevated PSA Surgical History Hx of inguinal hernia repair Hx of arthroscopy of right knee Hx of colonoscopy Family History Father Prostate cancer Social History Household Members: Friend(s) Housing: Apartment Alcohol intake: current Alcohol intake frequency: holidays/special occasions only Patient Tobacco Use Status: Former Tobacco user e-Cigarette/Vaping Use: Never Used service: No Current occupational status: retired Current occupational exposures/hazards: No Sexual orientation: Unable to collect Gender identity: Unable to collect Cognitive needs: No Hearing needs: Yes Vision needs: Yes Review of Systems Const Denies chills and Denies fever(s) Card Reports no additional complaints and Denies syncope Resp Denies cough GI Denies abdominal pain and Denies heartburn Reports as per HPI and Denies change in libido Neuro Denies syncope Psych Denies change in libido Endo Denies change in libido Physical Exam Const General: cooperative, healthy appearing, comfortable and no acute distress Orientation/consciousness: patient oriented x3 HEENT Face and sinus: Yes normal facial exam Mouth: moist mucous membranes Neck Neck: Yes normal visual inspection, Yes full ROM and Yes trachea midline Chest Chest palpation & inspection: normal inspection of the chest Resp Effort & Inspection: normal respiratory effort, able to speak in complete sentences and no respiratory distress GI Inspection: Yes normal to inspection Back/Spine/Pelvis Cervical Spine: normal cervical lordosis Thoracic/Lumbar Spine: thoracic and lumbar spine normal to inspection Skin General skin exam: no rashes or lesions noted Neuro General: patient oriented x3, gait normal, tone normal and moves all extremities Extrem General: Yes normal to inspection and Yes capillary refill normal Results AMB Urinalysis, Automated UA Leukoctes 15 Pawan/uL Last Edit by JOJO Torres on 01/12/24 10:44 UA Nitrite Negative Last Edit by Brendan Cavazos [facility] on 01/12/24 10:44 UA Urobilinogen 1 mg/dL Last Edit by Brendan Cavazos [facility] on 01/12/24 10:44 UA Protein 30 mg/dL Last Edit by Brendan Cavazos [facility] on 01/12/24 10:44 UA pH 5.5 Last Edit by Brendan Cavazos [facility] on 01/12/24 10:44 UA Blood 10 Damien/uL Last Edit by Brendan Cavazos [facility] on 01/12/24 10:44 UA Specific [place] 1.025 Last Edit by Brendan Cavazos [facility] on 01/12/24 10: 44 UA Ketone Positive Last Edit by Brendan Cavazos [facility] on 01/12/24 10:44 UA Bilirubin 1 mg/dL Last Edit by Brendan Cavazos [facility] on 01/12/24 10:44 UA Glucose 100 mg/dL Last Edit by Brendan Cavazos [facility] on 01/12/24 10:44 Assessment & Plan Assessment & Plan (1) BPH loc w urin obs/LUTS: Code(s): N40.1 - Benign prostatic hyperplasia with lower urinary tract symptoms Category: Medical (2) Elevated PSA: Code(s): R97.20 - Elevated prostate specific antigen [PSA] Category: Medical (3) Nocturia: Code(s): R35.1 - Nocturia Category: Medical Plan Six-month follow-up Orders: Orders AMB Urinalysis Automated Today Z13.9 - Encounter for screening, unspecified Patient Instructions: Imaging studies, laboratory and physical exam results were discussed and reviewed in detail. No major barriers to patient understanding were identified. An opportunity to ask questions regarding the treatment plan was provided. All questions were answered. The patient expressed understanding and agreement with the above treatment plan. The patient is aware they should contact our office by phone for worsening of their current condition or the appearance of new urologic symptoms. Compliance is encouraged with any medications and followup testing that is ordered. It is a privilege to participate in the urologic care of your patient. If you have any questions or concerns regarding treatment for the above conditions, or other urologic issues, please do not hesitate to contact me. The office telephone contact is [phone]. This note is constructed using voice recognition software. While every effort has been made to ensure accuracy meat dresser errors may have been included. Yours sincerely, Dr Osvaldo De La Rosa MD, [facility] - Urology Providers of Expert, Compassionate Care for the Genitourinary System Coding Level of Care Code Est Pt Level 3 (04566) Diagnoses BPH loc w urin obs/LUTS N40.1 Elevated PSA R97.20 Nocturia R35.1
== END 2024-01-12 11:00 | disposition home or self-care (01) ==
PROVIDERS: PCP Nurse Practitioner Family; Visit Provider Urology
DX: N40.1 Benign prostatic hyperplasia with lower urinary tract symptoms (principal); R97.20 Elevated prostate specific antigen [PSA]; R35.1 Nocturia; Z13.9 Encounter for screening, unspecified
CPT/HCPCS: 99213

== ENCOUNTER → 2024-01-12 10:17 | Outpatient (BNVA) | payer OTHER, SELFPAY | PROVIDERS: PCP Nurse Practitioner Family; Visit Provider Urology | DX: N40.1 Benign prostatic hyperplasia with lower urinary tract symptoms (principal); R97.20 Elevated prostate specific antigen [PSA]; R35.1 Nocturia | CPT/HCPCS: 81003 ==

== ENCOUNTER 2024-01-20 07:54 | Outpatient (AMB) | payer OTHER, SELFPAY ==
--- NOTE | 2024-01-20 07:56 | A.OFFVIS_ITS ---
Vital Signs 01/20/24 07:57 Height 5 ft 8 in Weight 162 lb BMI 24.6 Pulse 50 Pulse Source Pulse Oximeter Pulse Oximetry (%) 98 Oxygen Delivery Method Room Air Intake Visit Reasons: INP-Movement dis Gait & Mobility Intake Note: Patient presents for movement disorder,gait & mobility Allergies tamsulosin Allergy (Unknown, Verified 01/20/24 07:59) dizziness, weakness Medication List - Last Reconciled 01/20/24 by Makayla Coleman MD amlodipine 10 mg PO DAILY 90 days apixaban (Eliquis) 5 mg PO BID 90 days atenolol 50 mg PO DAILY atorvastatin 80 mg PO DAILY 90 days buspirone 10 mg PO BID 90 days cetirizine (Zyrtec) 10 mg PO DAILY 30 days cholecalciferol (vitamin D3) 50 mcg PO DAILY donepezil 10 mg PO DAILY 30 days irbesartan 300 mg PO DAILY miscellaneous medical supply 1 cane for ambulation ndrrbpulsomm-lqhj-zbgmn acid 18-400 mg-mcg (Centrum Complete) 1 tab PO DAILY psyllium husk (Metamucil) 1 tbsp PO BID 30 days sertraline 100 mg PO DAILY 30 days HPI Comments Details: 83y/o Right handed male comes for evaluation of shuffling gait and memory issues. He reports worsening of his gait and balance about 10 mths ago . He feels that his balance is poor and he shuffles. He had 1 fall 2 weeks ago when he was rushing to his car and was not using his cane. He denies neck pain or back pain.He has on and off dizziness - lightheadedness when he does some strenuous activity. He use dto be very active- was a runner when young. He reports increased frequency urgency and some incontinence. He noticed short term memory issues about 1 year ago and gradually worsening. He has trouble remembering conversations, activities, misplaces things,forgets dates etc.He denies executive dysfunction.He manages his own finances . He lives with a friend now. No h/o head injury . 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 He has h/o anxiety . He reports vivid dreams and night terrors every night. His speech is softer . No tremors. He has difficulty with fine finger movements in an[place]in[place] Hands. Bowel movements - better with metamucil. [facility] Medical History (Updated 01/20/24 @ 08:40 by Makayla Coleman MD) Cognitive changes Lumbar spinal stenosis Hypertension Erectile dysfunction Feeling of incomplete bladder emptying Post-void dribbling Weak urinary stream Nocturia Elevated PSA Surgical History Hx of inguinal hernia repair Hx of arthroscopy of right knee Hx of colonoscopy Family History Father Prostate cancer Social History Household Members: Friend(s) Housing: Apartment Alcohol intake: current Alcohol intake frequency: holidays/special occasions only Patient Tobacco Use Status: Former Tobacco user e-Cigarette/Vaping Use: Never Used service: No Current occupational status: retired Current occupational exposures/hazards: No Sexual orientation: Unable to collect Gender identity: Unable to collect Cognitive needs: No Hearing needs: Yes Vision needs: Yes Physical Exam Vital Signs: Last Vital Signs Pulse 50 01/20/24 07:57 Pulse Ox 98 01/20/24 07:57 Oxygen Delivery Method Room Air 01/20/24 07:57 BMI result Body Mass Index 24.6 Psych Speech and movement: Normal speech and movement present Affect: Anxious affect present Attitude: cooperative Thought process: Normal thought process present Thought content: Normal thought content present Insight: Good insight present (Psych) Orientation What is the (year) (season) (date) (day) (month)?: year, season, date, day and month Where are we (state) (county) (town or city) (hospital) (floor)?: state, county, town or city, hospital/clinic and floor Registration Name of 3 unrelated objects clearly and slowly, then ask patient to repeat all 3 of them. (1st repeat determines score. Make sure they can repeat all three): object 1, object 2 and object 3 Attention & Calculation (CHOOSE ONE) Spell WORLD backwards (DLROW): 5 letters Recall Ask patient to repeat the 3 items from question #3.: object 1 and object 2 Language Show patient a wristwatch & ask what it is. Repeat for pencil.: watch and pencil Ask the patient to repeat the phrase 'No ifs, ands, or buts' after you.: correct Ask the patient to 'take a piece of paper with their right hand' 'fold paper in half' 'place paper on floor': take paper in right hand, fold paper in half and place paper on floor Print the sentence 'CLOSE YOUR EYES' on a piece. If patient actually closes eyes then score.: followed written direction Give patient a blank piece of paper & ask to write a sentence. Score if it contains a noun & verb.: sentence contains subject and verb Score Score: 28 Assessment & Plan Assessment & Plan (1) Shuffling gait: Comment: ? parkinsons ? related to lumbar spinal stenosis ? NPH Code(s): R26.89 - Other abnormalities of gait and mobility Category: Medical (2) Cognitive changes: Comment: did Ok on MMSE - worsened by anxiety Code(s): R41.89 - Other symptoms and signs involving cognitive functions and awareness Category: Medical Plan I will do MRI brain to evaluate for ventricular size and other changes I will check his Vit B 12 and ESR to r/o reversible causes Declines psychiatry eval for anxiety PT for gait and balance Cognitive therapy Orders: Orders Vitamin B12 and Folate Today F03.90 - Unspecified dementia, unspecified severity, without behavioral disturbance, psychotic disturbance, mood disturbance, and anxiety Erythrocyte Sedimentation Rate Today F03.90 - Unspecified dementia, unspecified severity, without behavioral disturbance, psychotic disturbance, mood disturbance, and anxiety MR brain wo con w neuroquant Today F03.90 - Unspecified dementia, unspecified severity, without behavioral disturbance, psychotic disturbance, mood disturbance, and anxiety PT Evaluation and Treatment Today R26.89 - Other abnormalities of gait and mobility Referrals Speech and Hearing Referral R41.89 - Other symptoms and signs involving cognitive functions and awareness Coding Level of Care Code New Pt Level 4 (58312) Complex EM visit Add On G2211 Diagnoses Shuffling gait R26.89 Cognitive changes R41.89
[2024-01-20 07:57] VITALS: PULSE 50; O2SAT 98; BMI 24.6
== END 2024-01-20 08:54 | disposition home or self-care (01) ==
PROVIDERS: PCP Nurse Practitioner Family; Visit Provider Psychiatry & Neurology Neurology
DX: R26.89 Other abnormalities of gait and mobility (principal); R41.89 Other symptoms and signs involving cognitive functions and awareness
CPT/HCPCS: 99204

== ENCOUNTER → 2024-01-20 07:54 | Outpatient (BNVA) | payer OTHER, SELFPAY | PROVIDERS: PCP Nurse Practitioner Family; Visit Provider Psychiatry & Neurology Neurology ==

== ENCOUNTER 2024-01-22 13:14 | Outpatient (AMB) | payer OTHER, SELFPAY ==
[2024-01-22 13:22] VITALS: BP 112/64; PULSE 57; BMI 24.9
--- NOTE | 2024-01-22 13:22 | MHC.OFFVIS ---
Vital Signs 01/22/24 13:22 Height 5 ft 8 in Weight 164 lb BMI 24.9 BP 112/64 Blood Pressure Location Rt brachial Position Sitting Pulse 57 Intake Visit Reasons: Adriana pt/loose stool Intake Note: Akil presents to in office in follow up for loose stools. CC: Patient reports loose stools if he does not take the metamucil. 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 PMX AFib-on Xarelto Chronic kidney disease Hypertension High cholesterol BPH Chronic low back pain/lumbar stenosis/lumbar degenerative disc disease Dementia * SURGICAL HISTORY Inguinal hernia repair Right knee arthroscopy Colonoscopy * ALLERGIES Flomax * [email or web address] LABS: No significant labs since 2022 Laboratory Tests 07/29/22 12:25 Tiss Transglutamin IgA <1.0 The patient had a negative Cologuard 08/2022 NILSA LAST NOTE Assessment & Plan (1) Frequent loose stools: Comment: Metamucil daily much improved-has been a non issue No other associated sx Discuss colonoscopy is unclear when he had 1 last, however he has been on Eliquis to maybe 6 months unclear with that as well- Typically for colonoscopy we discontinue Eliquis for 2 days due to anticipation of polypectomy ETC At this point we will hold off Had having some difficulty with cost for Eliquis reviewed this with him-so that he would qualify likely for coupon -for reduced cost reduced cost (10 dollars) Reviewed labs normocytic anemia, however has follow-up to be with PCP for hypertension, as well as Urology for mildly elevated PSA- Code(s): R19.7 - Diarrhea, unspecified TODAY'S VISIT He says my digestive system is all screwed up. At times he has diarrhea post prandially and will have rectal leakage, but this is not very often and he is content to just live with it, He still feels that the metamucil is good at controlling his sx in general, and he does not desire any additional investigations or medications. He had a negative Cologuard in 2022, and there is no known FHX of crc or polyps, so I defer to his PCP for continued care since we are not actively treating him for anything. PRN. PFSH Medical History (Updated 01/22/24 @ 15:01 by KAYLIN Morales) Anticoagulation management encounter Memory deficit Pneumonia Laboratory tests ordered as part of a complete physical exam (CPE) Colon cancer screening Cough Normal routine physical examination Cognitive changes Lumbar spinal stenosis Hypertension Erectile dysfunction Feeling of incomplete bladder emptying Post-void dribbling Weak urinary stream Nocturia Elevated PSA Surgical History Hx of inguinal hernia repair Hx of arthroscopy of right knee Hx of colonoscopy Family History (Reviewed 01/22/24 @ 13: by JOJO Cervantes) Father Prostate cancer Social History Household Members: Friend(s) Housing: Apartment Alcohol intake: current Alcohol intake frequency: holidays/special occasions only Patient Tobacco Use Status: Former Tobacco user e-Cigarette/Vaping Use: Never Used service: No Current occupational status: retired Current occupational exposures/hazards: No Sexual orientation: Unable to collect Gender identity: Unable to collect Cognitive needs: No Hearing needs: Yes Vision needs: Yes Review of Systems Const Denies fatigue, Denies fever(s), Denies night sweats, Denies poor appetite and Denies weight loss Eyes Details: Glasses Reports requires corrective lenses ENT Reports Normal hearing present, Denies dysphagia, Denies odynophagia, Denies throat swelling and Denies tongue swelling Card Reports no additional complaints Resp Reports no additional complaints GI Details: Denies abdominal pain, Denies melena, Denies bloating, Denies hematochezia, Denies constipation, Denies GI cramping, Denies dysphagia, Denies excessive flatus, Denies early satiety, Denies heartburn, Denies diarrhea, Reports loose stools, Denies nausea, Denies odynophagia, Denies vomiting and Denies hematemesis Musc Reports abnormal gait Skin/Breast Denies pruritus, Denies lesions, Denies rash and Denies jaundice Neuro Reports Normal hearing present, Denies Abnormal speech present and Reports abnormal gait Endo Denies fatigue Aller/Immun Denies throat swelling and Denies tongue swelling Physical Exam Vital Signs: Last Vital Signs Pulse 57 01/22/24 13:22 BP 112/64 01/22/24 13:22 BMI result Body Mass Index 24.9 Const General: cooperative, no acute distress, well developed and well groomed Nutritional Appearance: average body habitus and well nourished Orientation/consciousness: oriented to person, oriented to place and oriented to time Limitations: No language barrier and ambulation with cane HEENT Head: Yes normocephalic and Yes atraumatic Eyes General: appearance normal, both eyes and all related structures Pupils: Equal, round and reactive pupils present Neck Neck: Yes normal visual inspection and Yes no lymphadenopathy Thyroid: Thyroid normal Resp Effort & Inspection: normal respiratory effort and able to speak in complete sentences Auscultation: clear to auscultation bilaterally Cardio Rate: regular rate Rhythm: regular rhythm Heart sounds: Normal, physiologic split S2 sound present Peripheral pulses: radial pulses present and posterior tibial pulses present GI Inspection: No distended and No Abdominal panniculus present Palpation (GI): Soft to palpation, nontender, no guarding, not rigid and No hepatosplenomegaly present Percussion: Yes normal to percussion Auscultation: normal bowel sounds Rectal Exam - Male: Yes deferred Skin General skin exam: no rashes or lesions noted, turgor normal, skin not dry, no jaundice, No spider nevi and no striae Rashes: no rashes Nails: normal Neuro General: oriented to person, oriented to place and oriented to time Cranial nerves: Yes Equal, round and reactive pupils present and Yes Normal hearing present Speech: No Abnormal speech present Extrem General: Yes normal to inspection, No clubbing, No cyanosis and No edema Psych Appearance: grossly normal and well kempt Mental Status: mental status grossly normal Speech and movement: Normal speech and movement present Affect: normal affect Attitude: cooperative Thought process: Normal thought process present and not confabulating Thought content: Normal thought content present Insight: Limited insight present (Psych) Judgement: Limited judgement present (Psych) Assessment & Plan Assessment & Plan (1) Frequent loose stools: Code(s): R19.7 - Diarrhea, unspecified Category: Medical Plan He says my digestive system is all screwed up. At times he has diarrhea post prandially and will have rectal leakage, but this is not very often and he is content to just live with it, He still feels that the metamucil is good at controlling his sx in general, and he does not desire any additional investigations or medications. He had a negative Cologuard in 2022, and there is no known FHX of crc or polyps, so I defer to his PCP for continued care since we are not actively treating him for anything. PRN. Coding Level of Care Code Est Pt Level 3 (78984) Diagnoses Frequent loose stools R19.7
== END 2024-01-22 14:16 | disposition home or self-care (01) ==
PROVIDERS: PCP Nurse Practitioner Family; Visit Provider Nurse Practitioner
DX: R19.7 Diarrhea, unspecified (principal)
CPT/HCPCS: 99213

== ENCOUNTER 2024-01-28 07:45 | Outpatient (AMB) | payer OTHER, SELFPAY ==
--- NOTE | 2024-01-28 07:56 | MHC.PC.OV ---
Vital Signs 01/28/24 08:03 Height 5 ft 8 in Weight 164 lb 2 oz BMI 25.0 BP 133/63 Blood Pressure Location Rt brachial Position Sitting Respiration 16 Pulse 49 L Pulse Source Pulse Oximeter Temp 97.4 F Temp Source Oral Pulse Oximetry (%) 100 Oxygen Delivery Method Room Air Intake Visit Reasons: 3 mos CPE Intake Note: patient here for CPE Communications Department Chair Required: No Allergies tamsulosin Allergy (Unknown, Verified 01/28/24 08:21) dizziness, weakness Medication List - Last Reconciled 01/28/24 by George Spring CNP amlodipine 10 mg PO DAILY 90 days apixaban (Eliquis) 5 mg PO BID 90 days atenolol 50 mg PO DAILY atorvastatin 80 mg PO DAILY 90 days buspirone 10 mg PO BID 90 days cetirizine (Zyrtec) 10 mg PO DAILY 30 days cholecalciferol (vitamin D3) 50 mcg PO DAILY donepezil 10 mg PO DAILY 30 days irbesartan 300 mg PO DAILY miscellaneous medical supply 1 cane for ambulation rezyiqfgvara-lyjy-smpiu acid 18-400 mg-mcg (Centrum Complete) 1 tab PO DAILY psyllium husk (Metamucil) 1 tbsp PO BID 30 days sertraline 50 mg PO DAILY Tobacco use date assessed: 01/28/24 Fall risk assessment: 2 + Falls in past year Last assessed Fall Risk: 01/28/24 Dental Screening Dental Screen Date: 01/28/24 Did you have a dental visit in the last 12 months?: No Did you have a dental problem in the last 6 months where you did not have access to dental care?: No Was dental information given to patient?: Patient has dentist HPI HPI Comments History of Present Illness Details 83-year-old male presents to [facility] care. He admits to taking her medications as prescribed without adverse reactions. Acute issue(s) - Reports tingling and numbness of his entire body, occurs twice weekly only while lying down, and ongoing for a while - He is always anxious about numerous things, including the news. Everything pisses me off. His anxious symptoms are well controlled. He has been taking sertraline 50 mg daily and buspirone 10 mg twice daily. 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 Does not vape. Drinks 1-2 drinks socially/occasionally. Denies recreational drug use - Has been making healthy dietary choices. Minimal exercise/walking. Generally sleep well Health maintenance - Does not recall his last eye exam. He has an appointment with [facility] for in April 2024 - Last dental visit was about 6 months ago - Does not recall being vaccinated for shingles; will review is health record and update as needed - Up-to-date on the pneumonia vaccine - Does not recall last tetanus vaccine; will review health record and update as needed - Up-to-date on the influenza vaccine - Last colonoscopy was with [facility] but does recall date Specialists - Followed by [facility] [place] Cardiology, Neurology, Gastroenterology, and Urology - Followed by [facility] Medical History (Updated 01/28/24 @ 09:07 by George Spring CNP) Normal routine physical examination Anticoagulation management encounter Memory deficit Pneumonia Laboratory tests ordered as part of a complete physical exam (CPE) Colon cancer screening Cough Cognitive changes Lumbar spinal stenosis Hypertension Erectile dysfunction Feeling of incomplete bladder emptying Post-void dribbling Weak urinary stream Nocturia Elevated PSA Surgical History Hx of inguinal hernia repair Hx of arthroscopy of right knee Hx of colonoscopy Family History Father Prostate cancer Social History Household Members: Friend(s) Housing: Apartment Alcohol intake: current Alcohol intake frequency: holidays/special occasions only Patient Tobacco Use Status: Former Tobacco user e-Cigarette/Vaping Use: Never Used service: No Current occupational status: retired Current occupational exposures/hazards: No Sexual orientation: Unable to collect Gender identity: Unable to collect Cognitive needs: No Hearing needs: Yes Vision needs: Yes Questionnaire PHQ-9 Over the last 2 weeks, how often have you been bothered by any of the following problems? 1. Little interest or pleasure in doing things: not at all 2. Feeling down, depressed, or hopeless: not at all 3. Trouble falling or staying asleep, or sleeping too much: not at all 4. Feeling tired or having little energy: not at all 5. Poor appetite or overeating: not at all 6. Feeling bad about yourself - or that you are a failure or have let yourself or your family down: not at all 7. Trouble concentrating on things, such as reading the newspaper or watching television: not at all 8. Moving or speaking so slowly that other people could have noticed. Or the opposite - being so fidgety or restless that you have been moving around a lot more than usual: several days 9. Thoughts that you would be better off or of hurting yourself in some way: not at all Total score: 1 Depression Screening Interpretation: Negative Depression Screening Done: Yes 04560 - PHQ-9 Billing: Yes Source: Developed by Drs. Domo Mckinley, Cindi Mcfadden, Randy Sotelo and colleagues, with an educational petey from [employer]. Thrive Questionnaire Date Thrive assessed: 01/28/24 I am a: Patient What is your living situation today?: I have a steady place to live Within the past 12 months, did the food you bought not last and you didn't have the money to get more?: Never true Within the past 12 months, did you worry whether your food would run out before you got money to buy more?: Never true Do you have trouble paying for medicines?: No Do you have trouble getting transportation to medical appointments?: No Do you have trouble paying your heating and electricity bill?: No Do you have trouble taking care of your child, family member or friend?: No Do you have trouble with day-to-day activities such as bathing, preparing meals, shopping, managing finances, etc.?: No Are you currently unemployed and looking for a job?: No Are you interested in more education?: No Please select the resources that you would like help with: None Currently or been in a relationship where the following occur: No concerns reported THRIVE Score: 0 AUDIT C Alcohol Use Questionnaire (AUDIT-C) 1. How often do you have a drink containing alcohol?: 2-4 times a month 2. How many drinks containing alcohol do you have on a typical day when you are drinking?: 1 or 2 3. How often do you have six or more drinks on one occasion?: Never Total Score: 2 Score Reviewed/Action Taken: Yes CORBIN-7 AMB Questionnaire CORBIN-7 Date CORBIN - 7 assessed: 01/28/24 Feeling nervous, anxious, or on edge: 3 = Nearly every day Not being able to stop or control worryin = More than half the days Worrying too much about different things: 2 = More than half the days Trouble relaxin = Nearly every day Being so restless that it is hard to sit still: 0 = Not at all Becoming easily annoyed or irritable: 3 = Nearly every day Feeling afraid as if something awful might happen: 1 = Several days Total CORBIN-7 score (0-4 normal; 5-9 mild; 10-14 moderate; 15-21 severe): 14 Source: Developed by Drs. Domo Mckinley, Cindi Mcfadden, Randy Sotelo and colleagues, with an educational petey from [employer]. CORBIN-7 Assessment Billing CORBIN-7 Assessment Tool: CORBIN-7 Assessment 11233 Review of Systems Const Details: Denies chills, Denies fatigue, Denies fever(s), Denies headache(s) and Denies weakness HEENT Denies change in vision, Denies dizziness, Denies headache(s), Denies hearing loss, Denies nasal congestion, Denies sinus pain, Denies sinus pressure and Denies sore throat Card Denies chest pain, Denies lightheadedness, Denies dyspnea and Denies other (palpitations) Resp Denies cough, Denies dyspnea and Denies wheezing GI Denies abdominal pain, Denies melena, Denies hematochezia, Denies change in bowel habits, Denies dyspepsia and Denies nausea Denies hematuria and Denies dysuria Musc Denies abnormal gait, Denies myalgias, Denies arthralgias, Reports intermittent generalized numbness and tingling Skin/Breast Denies rash, Denies unusual bruising and Denies wounds Neuro Reports shuffling gait, Denies dizziness, Denies headache(s), Denies memory loss, Denies numbness, Denies Sensory deficit (Neuro), Reports tingling and numbness and Denies weakness Psych Reports anxiety, Denies depression and Reports memory loss Endo Denies cold intolerance, Denies fatigue, Denies heat intolerance, Denies polydipsia and Denies polyuria Rigo/Lymph Denies easy bleeding and Denies easy bruising Aller/Immun Denies wheezing Physical exam (Primary Care) Vital Signs: Last Vital Signs Temp 97.4 F 01/28/24 08:03 Pulse 49 L 01/28/24 08:03 Resp 16 01/28/24 08:03 BP 133/63 01/28/24 08:03 Pulse Ox 100 01/28/24 08:03 Oxygen Delivery Method Room Air 01/28/24 08:03 BMI result Body Mass Index 25.0 Tobacco/Smoking Status: Tobacco use Status Tobacco use date assessed 01/28/24 01/28/24 08:02 Patient Tobacco Use Status Former Tobacco user 01/28/24 07:58 e-Cigarette/Vaping Use Never Used 01/28/24 07:58 PHQ-9: PHQ-9 Score PHQ-9: Total score 1 01/28/24 08:09 Depression Screening Interpretation: Negative Thrive Assessment: Date of Thrive Assessment Date Thrive assessed 01/28/24 01/28/24 07:58 Currently or been in a relationship where the following occur: No concerns reported Const Other: General: no acute distress, well developed, alert and awake Nutritional Appearance: well nourished Orientation/consciousness: patient oriented x3 HENMT Head: Yes normocephalic and Yes atraumatic Ears: Impacted cerumen of the right ear, occluding the TM, left TM normal, hearing grossly normal bilaterally General nose exam: Normal external nose present and Normal nares present Mouth: Normal oral and palatal mucosa present and moist mucous membranes Teeth and gingiva: dentition normal Throat: Yes oropharynx normal Eyes Pupils: Equal, round and reactive pupils present and Pupil accommodation reflex normal EOM: EOMs intact bilaterally Neck Neck: Yes normal visual inspection, Yes no lymphadenopathy and Yes trachea midline Thyroid: Thyroid normal Carotids: no bruits Lymphatic: no lymphadenopathy noted Chest Chest palpation & inspection: normal inspection of the chest Resp Effort & Inspection: normal respiratory effort Auscultation: clear to auscultation bilaterally Cardio Rate: regular rate Rhythm: regular rhythm Heart sounds: S1 normal heart sound present, S2 normal heart sound present, no gallops, no murmurs and no rubs Bruits: no abdominal aortic bruits and no carotid bruits GI Palpation (GI): No Abdominal aortic bruit present, Soft to palpation, nontender, No hepatosplenomegaly present and No Rebound tenderness present Auscultation: normal bowel sounds General: Yes no CVA tenderness Back/Spine/Pelvis Back: no CVA tenderness Cervical Spine: cervical ROM normal and No Cervical spine tenderness Thoracic/Lumbar Spine: thoraco-lumbar ROM normal, No pain with thoraco-lumbar ROM, No thoracic spinal tenderness and No lumbar spinal tenderness Skin General: warm and dry. Normal skin color. Normal skin turgor Lesions: no lesions Rashes: no rashes Trauma: no lacerations or abrasions Wounds: no wounds Nails: normal Neuro General: patient oriented x3, gait normal and CN's II-XI intact bilaterally Cranial nerves: Yes Equal, round and reactive pupils present Cognition (Neuro): normal cognition Gait exam (Neuro): Shuffling gait present Motor exam (neuro): 5/5 motor strength present throughout Sensory Exam: No Sensory deficit (Neuro) Deep tendon reflexes (DTR's): Right patellar reflex intensity grade: 2+ and Left patellar reflex intensity grade: 2+ Extrem General: Yes normal to inspection, No edema and No calf tenderness Psych Appearance: grossly normal Affect: normal affect Attitude: cooperative Thought process: Normal thought process present Coding Level of Care Code Est Pt Level 4 (91902) Est Pt Prev Care >65y(16766) Diagnoses Normal routine physical examination Z00.00 Dementia F03.90 Shuffling gait R26.89 Anxiety and depression F41.9; F32.A Impacted cerumen, right ear H61.21 Paresthesia R20.2 Additional Codes CORBIN-7 Assessment Billing - CORBIN-7 Assessment Tool: CORBIN-7 Assessment 67419 ([id number]) PHQ-9 - 14782 - PHQ-9 Billing: Yes ([id number]) Assessment & Plan Assessment & Plan (1) Normal routine physical examination: Code(s): Z00.00 - Encounter for general adult medical examination without abnormal findings Category: Medical Plan: No significant functional limitations noted. Advised to get lab work done 2-3 days before next visit. Fast for 10-12 hours, may drink water only before lab work. Follow-up in 2 weeks for right ear lavage and labs review. Return sooner with symptoms or concerns. Verbalized understanding and agreed with the plan. (2) Dementia: Code(s): F03.90 - Unspecified dementia, unspecified severity, without behavioral disturbance, psychotic disturbance, mood disturbance, and anxiety Category: Medical Plan: Continued memory decline. Continue to take donepezil as prescribed. Followed by [facility] [place] Neurology (3) Shuffling gait: Comment: ? parkinsons ? related to lumbar spinal stenosis ? NPH Code(s): R26.89 - Other abnormalities of gait and mobility Category: Medical Plan: Instructed on safety to prevent fall. Encouraged to use his cane at all times. Followed by [facility] [place] Neurology. (4) Anxiety and depression: Code(s): F41.9 - Anxiety disorder, unspecified; F32.A - Depression, unspecified Category: Medical Plan: Controlled symptoms. CORBIN-7 score reveals moderate anxiety. PHQ-9 score is normal. Continue to take sertraline and buspirone as prescribed. Routine exercise encouraged. Follow-up with worsening or new symptoms. Verbalized understanding and agreed with the plan. (5) Impacted cerumen, right ear: Code(s): H61.21 - Impacted cerumen, right ear Category: Medical Plan: Advised to apply Debrox in the right ear 4 days before his next visit. Follow-up for an ear lavage in 2 weeks. Verbalized understanding and agreed with the plan. (6) Paresthesia: Code(s): R20.2 - Paresthesia of skin Category: Medical Plan: Intermittent tingling and numbness of his entire body only while lying, ongoing for a while. Will check labs, including vitamin B12 and folate ordered by Neurology. Advised to get lab work done before his next visit. Verbalized understanding and agreed with the plan. Medications: New carbamide peroxide 6.5% (Debrox) 5 drps otic (ear) right DAILY 4 days 15 mL 0RF Changed From sertraline 100 mg PO DAILY 30 days 30 tabs 3RF To sertraline 50 mg PO DAILY
[2024-01-28 08:03] VITALS: BP 133/63; PULSE 49; RESP 16; TEMP 36.3; O2SAT 100; BMI 25.0
== END 2024-01-28 08:56 | disposition home or self-care (01) ==
PROVIDERS: PCP Nurse Practitioner Family; Visit Provider Nurse Practitioner Family
DX: Z00.00 Encounter for general adult medical examination without abnormal findings (principal); F03.90 Unspecified dementia, unspecified severity, without behavioral disturbance, psychotic disturbance, mood disturbance, and anxiety; R26.89 Other abnormalities of gait and mobility; F41.9 Anxiety disorder, unspecified; F32.A Depression, unspecified; H61.21 Impacted cerumen, right ear; R20.2 Paresthesia of skin

== ENCOUNTER → 2024-01-28 07:45 | Outpatient (BNVA) | payer OTHER, SELFPAY | PROVIDERS: PCP Nurse Practitioner Family; Visit Provider Nurse Practitioner Family | DX: Z00.00 Encounter for general adult medical examination without abnormal findings (principal); F03.90 Unspecified dementia, unspecified severity, without behavioral disturbance, psychotic disturbance, mood disturbance, and anxiety; R26.89 Other abnormalities of gait and mobility; F41.9 Anxiety disorder, unspecified; F32.A Depression, unspecified; H61.21 Impacted cerumen, right ear; R20.2 Paresthesia of skin; Z79.899 Other long term (current) drug therapy | CPT/HCPCS: 96127 ==

== ENCOUNTER 2024-01-29 07:59 | Outpatient (REF) | payer OTHER, SELFPAY | END 2024-01-29 08:00 | disposition home or self-care (01) | LOC: HO.HOSX 07:59 | DX: M79.641 Pain in right hand (principal); M79.642 Pain in left hand | CPT/HCPCS: 73130 ==

== ENCOUNTER 2024-01-29 08:42 | Outpatient (AMB) | payer OTHER, SELFPAY ==
--- NOTE | 2024-01-29 09:04 | A.OFFVIS_ITS ---
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 He only has discomfort when trying to straighten the fingers out. 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 He only has discomfort when trying to straighten the fingers out. HPI Comments Details: Patient is an 83-year-old male who presents for evaluation of contractures of bilateral hands, affecting the small finger on the left in the ring and small fingers on the right. Patient states that these contractures have been ongoing for many years, but have worsened to the point where he would like to pursue treatment. Denies any pain, numbness, or tingling in the bilateral hands, states he only has discomfort with ?attempting to straighten out my contracted finger?. No other acute complaints or concerns at this time. [facility] Medical History (Updated 01/29/24 @ 09:46 by NGHIA Longo) Normal routine physical examination Anticoagulation management encounter Memory deficit Pneumonia Laboratory tests ordered as part of a complete physical exam (CPE) Colon cancer screening Cough Cognitive changes Lumbar spinal stenosis Hypertension Erectile dysfunction Feeling of incomplete bladder emptying Post-void dribbling Weak urinary stream Nocturia Elevated PSA Surgical History Hx of inguinal hernia repair Hx of arthroscopy of right knee Hx of colonoscopy Family History Father Prostate cancer Social History Household Members: Friend(s) Housing: Apartment Alcohol intake: current Alcohol intake frequency: holidays/special occasions only Patient Tobacco Use Status: Former Tobacco user e-Cigarette/Vaping Use: Never Used service: No Current occupational status: retired Current occupational exposures/hazards: No Sexual orientation: Unable to collect Gender identity: Unable to collect Cognitive needs: No Hearing needs: Yes Vision needs: Yes Review of Systems Const All systems reviewed & are unremarkable except as noted in HPI and below Physical Exam Vital Signs: BMI result Body Mass Index 24.9 Extrem Other: Patient is alert, oriented, and in no acute distress. Neuro: Normal sensation of the tips of all digits of the bilateral hand at this time Vascular: Cap refill brisk Pain: No tenderness to palpation of the bilateral hands No pain with range of motion testing ROM: Patient was noted to have Dupuytren's contractures of bilateral small fingers and the left ring finger No active contractures of MCP joint of the left small finger, but there is an approximately 90 degree contracture of the PIP joint There is a 30 degree contracture of the patient's MCP joint of the left ring finger There is noted to be an approximately 75 degree contracture of the PIP joint of the right small finger Skin: No lacerations or abrasions. General: No ecchymosis, erythema, or evidence of infection. Psych: Appears grossly normal Affect normal Attitude cooperative Assessment & Plan Assessment & Plan (1) Dupuytren's contracture of both hands: Code(s): M72.0 - Palmar fascial fibromatosis [Dupuytren] Category: Medical Plan 1. Dupuytren's contracture of the bilateral hands Patient is educated about this condition Patient was educated about the treatment options available and the typical recovery course At this time, patient was referred to Dr. Soliz for surgical consult regarding discussion of partial Dupuytren's fasciectomy Patient was to this plan Patient will follow-up Dr. Soliz for next available surgical consult appointment for bilateral Dupuytren's contractures, sooner with any other acute concerns Orders: Orders XR hand RT min 3V Today M79.641 - Pain in right hand XR hand LT min 3V Today M79.642 - Pain in left hand Coding Level of Care Code New Pt Level 3 (01131) Diagnoses Dupuytren's contracture of both hands M72.0
[2024-01-29 09:07] VITALS: BMI 24.9
== END 2024-01-29 09:17 | disposition home or self-care (01) ==
PROVIDERS: PCP Nurse Practitioner Family
DX: M72.0 Palmar fascial fibromatosis [Dupuytren] (principal)
CPT/HCPCS: 99203

== ENCOUNTER 2024-02-02 07:25 | Outpatient (REF) | payer OTHER, SELFPAY ==
[2024-02-02 07:52] LABS: MANUAL DIFF FLAG NO
[2024-02-02 08:02] LABS: Basophils Absolute Auto 0.1 X10*3/uL (0.0-0.2); Basophils Percent Auto 0.9 % (0-2); Eosinophils Absolute Auto 0.3 X10*3/uL (0.0-0.4); Eosinophils Percent Auto 4.4 % (0-4); Hematocrit 37.8 % (42.0-52.0); Hemoglobin 12.6 g/dl (14.0-18.0); Imm Gran Abs Auto 0.02 X10*3/uL (0.00-0.03); Imm Gran Pct Auto 0.3 % (0.0-0.4); Lymphocytes Absolute Auto 2.3 X10*3/uL (1.2-4.9); Lymphocytes Percent Auto 34.2 % (20-40); Mean Corpuscular HGB Conc 33.3 g/dl (31.0-36.0); Mean Corpuscular Hemoglobin 30.1 pg (27.0-33.0); Mean Corpuscular Volume 90.2 fL (80.0-98.0); Mean Platelet Volume 9.6 fL (9.4-12.4); Monocytes Absolute Auto 0.7 X10*3/uL (0.1-1.2); Monocytes Percent Auto 10.9 % (2-11); Neutrophils Absolute Auto 3.3 x10*3/uL (2.0-8.3); Neutrophils Percent Auto 49.3 % (45-73); Platelet Count 156 X10*3/uL (160-400); Red Blood Count 4.19 X10*6/uL (4.60-5.80); Red Cell Distribution Width 13.8 % (11.0-16.0); White Blood Count 6.8 X10*3/uL (4.8-10.8)
[2024-02-02 08:21] LABS: Appearance Urine Clear; Color Urine Yellow; Glucose Urine UA Negative (Negative); Leukocyte Esterase Urine Negative (Negative); Nitrite Urine Negative (Negative); PH 5.5 (5.0-9.0); UMIC TRIGGER UACC YES; Urine Blood Trace (Negative); Urine Ketones Negative (Negative); Urine Protein Trace mg/dL (Neg-Trace)
[2024-02-02 08:30] LABS: Creatinine Urine 175.91 mg/dL; Microalbum/Creatinine Ratio Ur 26.1 ug/mg cr (<30)
[2024-02-02 08:35] LABS: Bacteria Urine None Seen (None Seen); RBC Urine 0-2 /HPF (0-2); Squamous Epithelial Cell Urine 0-2 /HPF (0-2); WBC Urine 0-5 /HPF (0-5)
[2024-02-02 08:40] LABS: Albumin Level 4.2 g/dL (3.5-5.0); Anion Gap 13 (12-20); Aspartate Amino Transferase 39 U/L (5-37); Blood Urea Nitrogen 21 mg/dL (9-16); Calcium 9.1 mg/dL (8.4-10.2); Carbon Dioxide 23 mmol/L (22-29); Chloride 109 mmol/L (96-108); Cholesterol 129 mg/dL (<200); Estimated Glomerular Filt Rate 49; Glucose Fasting 117 mg/dL (60-99); HDL Cholesterol 57 mg/dL (>40); LDL Cholesterol Calculated 58 mg/dL (<100); Potassium 5.3 mmol/L (3.3-5.1); Sodium 140 mmol/L (135-145); Total Protein 7.2 g/dL (6.5-8.0); Triglycerides 71 mg/dL (<150)
[2024-02-02 08:50] LABS: Erythrocyte Sedimentation Rate 5 MM/HR (0-15)
[2024-02-02 08:54] LABS: Folate 12.9 ng/mL (> or = 4.0); Vitamin B12 319 pg/mL (200-900)
[2024-02-02 09:22] LABS: Alanine Aminotransferase 23 U/L (0-40); Alkaline Phosphatase 82 U/L (39-117); TSH reflex Free T4 1.71 uIU/mL (0.32-4.0); Vitamin D 25-OH Total 19.1 ng/mL (>30)
== END 2024-02-02 07:26 | disposition home or self-care (01) ==
LOC: HO.LAB 07:25
PROVIDERS: Absent Provider Psychiatry & Neurology Neurology; Visit Provider Nurse Practitioner Family
DX: Z00.00 Encounter for general adult medical examination without abnormal findings (principal); F03.90 Unspecified dementia, unspecified severity, without behavioral disturbance, psychotic disturbance, mood disturbance, and anxiety
CPT/HCPCS: 36415; 80053; 80061; 81001; 82043; 82306; 82570; 82607; 82746; 84443; 85025; 85652

== ENCOUNTER → 2024-02-05 07:50 | Outpatient (BNV) | payer OTHER, SELFPAY | PROVIDERS: Visit Provider Radiology Diagnostic Radiology | DX: I67.4 Hypertensive encephalopathy (principal); G93.81 Temporal sclerosis | CPT/HCPCS: 70551 ==

== ENCOUNTER 2024-02-05 08:14 | Outpatient (REF) | payer OTHER, SELFPAY | END 2024-02-05 08:15 | disposition home or self-care (01) | LOC: HO.MRI 08:14 | PROVIDERS: Visit Provider Psychiatry & Neurology Neurology | DX: F03.90 Unspecified dementia, unspecified severity, without behavioral disturbance, psychotic disturbance, mood disturbance, and anxiety (principal) | CPT/HCPCS: 70551; 76377 ==

== ENCOUNTER 2024-02-09 06:47 | Outpatient (REF) | payer OTHER, SELFPAY ==
[2024-02-09 07:11] LABS: Platelet Count 156 X10*3/uL (160-400)
[2024-02-09 07:25] LABS: Estimated Average Glucose 126 mg/dL; Hemoglobin A1C 130.5038 umol/L
[2024-02-09 07:28] LABS: Iron 129 mcg/dL (45-160); Percent Iron Saturation 52 % (15-50); Potassium 5.2 mmol/L (3.3-5.1); Total Iron Binding Capacity 248 mcg/dL (228-428); Unsaturated Iron Binding 119 ug/dL
[2024-02-09 08:34] LABS: Appearance Urine Clear; Color Urine Dark Yellow; Glucose Urine UA Negative (Negative); Leukocyte Esterase Urine Trace (Negative); Nitrite Urine Negative (Negative); PH 5.5 (5.0-9.0); UMIC TRIGGER UACC YES; Urine Blood Trace (Negative); Urine Ketones Trace mg/dL (Negative); Urine Protein Trace mg/dL (Neg-Trace)
[2024-02-09 08:48] LABS: Bacteria Urine None Seen (None Seen); Granular Casts Urine Present; Squamous Epithelial Cell Urine 0-2 /HPF (0-2); WBC Urine 0-5 /HPF (0-5)
== END 2024-02-09 06:48 | disposition home or self-care (01) ==
LOC: HO.LAB 06:47
PROVIDERS: PCP Nurse Practitioner Family; Visit Provider Nurse Practitioner Family
DX: R73.03 Prediabetes (principal); D69.6 Thrombocytopenia, unspecified; D64.9 Anemia, unspecified; E87.5 Hyperkalemia
CPT/HCPCS: 36415; 81001; 83036; 83540; 84132; 85049

== ENCOUNTER 2024-02-12 10:38 | Outpatient (AMB) | payer OTHER, SELFPAY ==
--- NOTE | 2024-02-12 10:41 | A.OFFPC_ITS ---
Vital Signs 02/12/24 10:48 02/12/24 11:10 Height 5 ft 8 in Weight 165 lb BMI 25.1 BP 146/66 H 130/70 Blood Pressure Location Rt brachial Rt brachial Position Sitting Sitting Respiration 16 Pulse 47 L Pulse Source Pulse Oximeter Temp 97.6 F Temp Source Oral Pulse Oximetry (%) 99 Oxygen Delivery Method Room Air Intake Visit Reasons: 2 wks right ear irrigation, labs review Intake Note: patient here for follow up on right ear irrigation and lab review. 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: No Allergies tamsulosin Allergy (Unknown, Verified 02/12/24 10:56) dizziness, weakness Medication List - Last Reconciled 02/12/24 by George Spring CNP amlodipine 10 mg PO DAILY 90 days apixaban (Eliquis) 5 mg PO BID 90 days atenolol 50 mg PO DAILY atorvastatin 80 mg PO DAILY 90 days buspirone 10 mg PO BID 90 days carbamide peroxide 6.5% (Debrox) 5 drps otic (ear) right DAILY 4 days cetirizine (Zyrtec) 10 mg PO DAILY 30 days cholecalciferol (vitamin D3) 50 mcg PO DAILY donepezil 10 mg PO DAILY 30 days irbesartan 300 mg PO DAILY miscellaneous medical supply 1 cane for ambulation ihctdohnlaik-gqmb-xpoyn acid 18-400 mg-mcg (Centrum Complete) 1 tab PO DAILY psyllium husk (Metamucil) 1 tbsp PO BID 30 days sertraline 100 mg PO DAILY Tobacco use date assessed: 02/12/24 Fall risk assessment: No Falls in past year Last assessed Fall Risk: 02/12/24 Dental Screening Dental Screen Date: 02/12/24 Did you have a dental visit in the last 12 months?: Yes Did you have a dental problem in the last 6 months where you did not have access to dental care?: No Was dental information given to patient?: Patient has dentist HPI HPI Comments History of Present Illness Details 83-year-old male presents for bilateral ear lavage and review of recent lab results. He admits to taking his medications as prescribed without adverse reaction. He denies diminished hearing of the right ear. He offers no complaints and denies acute symptoms at this time. [facility], [facility] Medical History (Updated 02/12/24 @ 11:09 by George Spring CNP) Normal routine physical examination Anticoagulation management encounter Memory deficit Pneumonia Laboratory tests ordered as part of a complete physical exam (CPE) Colon cancer screening Cough Cognitive changes Lumbar spinal stenosis Hypertension Erectile dysfunction Feeling of incomplete bladder emptying Post-void dribbling Weak urinary stream Nocturia Elevated PSA Surgical History Hx of inguinal hernia repair Hx of arthroscopy of right knee Hx of colonoscopy Family History Father Prostate cancer Social History Household Members: Friend(s) Housing: Apartment Alcohol intake: current Alcohol intake frequency: holidays/special occasions only Patient Tobacco Use Status: Former Tobacco user e-Cigarette/Vaping Use: Never Used service: No Current occupational status: retired Current occupational exposures/hazards: No Sexual orientation: Unable to collect Gender identity: Unable to collect Cognitive needs: No Hearing needs: Yes Vision needs: Yes Questionnaire PHQ-9 Over the last 2 weeks, how often have you been bothered by any of the following problems? 1. Little interest or pleasure in doing things: not at all 2. Feeling down, depressed, or hopeless: not at all 3. Trouble falling or staying asleep, or sleeping too much: not at all 4. Feeling tired or having little energy: not at all 5. Poor appetite or overeating: not at all 6. Feeling bad about yourself - or that you are a failure or have let yourself or your family down: not at all 7. Trouble concentrating on things, such as reading the newspaper or watching television: not at all 8. Moving or speaking so slowly that other people could have noticed. Or the opposite - being so fidgety or restless that you have been moving around a lot more than usual: not at all 9. Thoughts that you would be better off or of hurting yourself in some way: not at all Total score: 0 Depression Screening Interpretation: Negative Depression Screening Done: Yes Source: Developed by Drs. Domo Mckinley, Cindi Mcfadden, Randy Sotelo and colleagues, with an educational petey from [employer]. Thrive Questionnaire Date Thrive assessed: 01/28/24 I am a: Patient What is your living situation today?: I have a steady place to live Within the past 12 months, did the food you bought not last and you didn't have the money to get more?: Never true Within the past 12 months, did you worry whether your food would run out before you got money to buy more?: Never true Do you have trouble paying for medicines?: No Do you have trouble getting transportation to medical appointments?: No Do you have trouble paying your heating and electricity bill?: No Do you have trouble taking care of your child, family member or friend?: No Do you have trouble with day-to-day activities such as bathing, preparing meals, shopping, managing finances, etc.?: No Are you currently unemployed and looking for a job?: No Are you interested in more education?: No Please select the resources that you would like help with: None Currently or been in a relationship where the following occur: No concerns reported THRIVE Score: 0 AUDIT C Alcohol Use Questionnaire (AUDIT-C) 1. How often do you have a drink containing alcohol?: 2-4 times a month 2. How many drinks containing alcohol do you have on a typical day when you are drinking?: 3 or 4 3. How often do you have six or more drinks on one occasion?: Never Total Score: 3 CORBIN-7 AMB Questionnaire CORBIN-7 Date CORBIN - 7 assessed: 01/28/24 Feeling nervous, anxious, or on edge: 0 = Not at all Not being able to stop or control worryin = Not at all Worrying too much about different things: 0 = Not at all Trouble relaxin = Not at all Being so restless that it is hard to sit still: 0 = Not at all Becoming easily annoyed or irritable: 1 = Several days Feeling afraid as if something awful might happen: 0 = Not at all Total CORBIN-7 score (0-4 normal; 5-9 mild; 10-14 moderate; 15-21 severe): 1 Source: Developed by Drs. Domo Mckinley, Cindi Mcfadden, Randy Sotelo and colleagues, with an educational petey from [employer]. Review of Systems Const Details: Const Denies chills, Denies fatigue, Denies fever(s), Denies headache(s) and Denies weakness ENT Reports as per HPI Card Denies chest pain, Denies lightheadedness, Denies dyspnea and Denies other (Palpitations) Resp Denies cough, Denies dyspnea, Denies wheezing and Denies other ( shortness of breath) GI Denies abdominal pain, Denies melena, Denies hematochezia, Denies change in bowel habits, Denies dyspepsia and Denies nausea Denies hematuria and Denies dysuria Musc Denies abnormal gait, Denies myalgias, Denies arthralgias, Denies numbness and Denies tingling Skin/Breast Denies rash, Denies unusual bruising and Denies wounds Neuro Denies abnormal gait, Denies dizziness, Denies headache(s), Denies memory loss, Denies numbness, Denies Sensory deficit (Neuro), Denies tingling and Denies weakness Psych Denies anxiety, Denies depression, Denies memory loss Endo Denies cold intolerance, Denies fatigue, Denies heat intolerance, Denies polydipsia and Denies polyuria Aller/Immun Denies wheezing Physical exam (Primary Care) Vital Signs: Last Vital Signs Temp 97.6 F 02/12/24 10:48 Pulse 47 L 02/12/24 10:48 Resp 16 02/12/24 10:48 BP 146/66 H 02/12/24 10:48 Pulse Ox 99 02/12/24 10:48 Oxygen Delivery Method Room Air 02/12/24 10:48 BMI result Body Mass Index 25.1 Tobacco/Smoking Status: Tobacco use Status Tobacco use date assessed 02/12/24 02/12/24 10:53 Patient Tobacco Use Status Former Tobacco user 02/12/24 10:44 e-Cigarette/Vaping Use Never Used 02/12/24 10:44 PHQ-9: PHQ-9 Score PHQ-9: Total score 0 02/12/24 10:44 Depression Screening Interpretation: Negative Thrive Assessment: Date of Thrive Assessment Date Thrive assessed 01/28/24 02/12/24 10:44 Currently or been in a relationship where the following occur: No concerns reported Const Other: General: no acute distress and well developed Nutritional Appearance: well nourished Orientation/consciousness: patient oriented x3 HENMT Head is normocephalic Impacted cerumen of the right ear occluding the TM. Left TM is normal Nasal turbinates and oropharynx are pink and moist Sinuses are nontender with palpation No auricular or cervical lymphadenopathy Eyes General: appearance normal, both eyes and all related structures Pupils: Equal, round and reactive pupils present EOM: EOMs intact bilaterally Resp Effort & Inspection: normal respiratory effort Auscultation: clear to auscultation bilaterally Cardio Rate: regular rate Rhythm: regular rhythm Heart sounds: S1 normal heart sound present, S2 normal heart sound present, no gallops, no murmurs and no rubs GI Palpation (GI): No Abdominal aortic bruit present, Soft to palpation, nontender, No hepatosplenomegaly present and No Rebound tenderness present Auscultation: normal bowel sounds General: Yes no CVA tenderness Back/Spine/Pelvis Back: no CVA tenderness Cervical Spine: cervical ROM normal and No Cervical spine tenderness Thoracic/Lumbar Spine: thoraco-lumbar ROM normal, No pain with thoraco-lumbar ROM, No thoracic spinal tenderness and No lumbar spinal tenderness Extrem General: Yes normal to inspection, No edema and No calf tenderness Skin General: warm and dry. Normal skin color. Normal skin turgor Neuro General: patient oriented x3, gait normal and no focal neuro deficit Cranial nerves: Yes Equal, round and reactive pupils present Cognition (Neuro): normal cognition Gait exam (Neuro): Normal gait present Sensory Exam: No Sensory deficit (Neuro) Psych Appearance: grossly normal Affect: normal affect Attitude: cooperative Thought process: Normal thought process present Coding Level of Care Code Est Pt Level 4 (39876) Diagnoses Impacted cerumen, right ear H61.21 Hyperkalemia E87.5 Thrombocytopenia D69.6 Vitamin D deficiency E55.9 Primary hypertension I10 Hypertension type: primary hypertension Assessment & Plan Assessment & Plan (1) Impacted cerumen, right ear: Code(s): H61.21 - Impacted cerumen, right ear Category: Medical Plan: Significant amount of cerumen removed from the right ear with irrigation. Right TM is normal post ear lavage. Follow-up as needed. Verbalized understanding and agreed with the plan. (2) Hyperkalemia: Code(s): E87.5 - Hyperkalemia Category: Medical Plan: Recent potassium level is slightly elevated, 5.2. Previous potassium level was 5.3. Continue to limit potassium rich foods. He will do repeat potassium blood work next week. Will review results and make changes as needed. Verbalized understanding and agreed with the treatment plan. (3) Thrombocytopenia: Code(s): D69.6 - Thrombocytopenia, unspecified Category: Medical Plan: He has mild thrombocytopenia. Repeat platelet count is 156; previous platelet count was 156. Recent vitamin B12, folate, and iron levels are normal. Sertraline antidepressant may be a contributing factor. Will monitor periodically or if symptomatic. Verbalized understanding and agreed with the plan. (4) Vitamin D deficiency: Code(s): E55.9 - Vitamin D deficiency, unspecified Category: Medical Plan: Recent vitamin-D level is low, 19.1. Vitamin D3 80124 units every week ordered; advised to take as prescribed, same-day each week. Perform vitamin D blood work 2-3 days before next visit. Follow-up in 2 months. Verbalized understanding and agreed with the treatment plan. (5) Hypertension: Code(s): I10 - Essential (primary) hypertension Category: Medical Qualifiers: Hypertension type: primary hypertension Qualified Code(s): I10 - Essential (primary) hypertension Plan: Resting blood pressure is 130/70, slightly above goal of less than 130/80. Continue current treatment regimen. Low-sodium diet encouraged. Follow-up in 2 months or sooner with symptoms or concerns. Verbalized understanding and agreed with treatment plan. Orders: Orders Potassium Today E87.5 - Hyperkalemia Vitamin D 25-OH Total 2 Months E55.9 - Vitamin D deficiency, unspecified Medications: New cholecalciferol (vitamin D3) 1,250 mcg PO QWEEK 8 weeks 8 tabs 0RF
[2024-02-12 10:48] VITALS: BP 146/66; PULSE 47; RESP 16; TEMP 36.4; O2SAT 99; BMI 25.1
[2024-02-12 11:10] VITALS: BP 130/70
== END 2024-02-12 11:38 | disposition home or self-care (01) ==
PROVIDERS: PCP Nurse Practitioner Family; Visit Provider Nurse Practitioner Family
DX: H61.21 Impacted cerumen, right ear (principal); E87.5 Hyperkalemia; D69.6 Thrombocytopenia, unspecified; E55.9 Vitamin D deficiency, unspecified; I10 Essential (primary) hypertension

== ENCOUNTER 2024-02-17 07:06 | Outpatient (REF) | payer OTHER, SELFPAY ==
[2024-02-17 07:53] LABS: Potassium 4.4 mmol/L (3.3-5.1)
== END 2024-02-17 07:07 | disposition home or self-care (01) ==
LOC: HO.LAB 07:06
PROVIDERS: PCP Nurse Practitioner Family; Visit Provider Nurse Practitioner Family
DX: E87.5 Hyperkalemia (principal)
CPT/HCPCS: 36415; 84132

== ENCOUNTER 2024-02-24 09:09 | Outpatient (AMB) | payer OTHER, SELFPAY ==
--- NOTE | 2024-02-24 09:10 | MHC.OFFVIS ---
Vital Signs 02/24/24 09:15 Height 5 ft 8 in Weight 165 lb BMI 25.1 Intake Visit Reasons: OV- Bilat Dupuytren's Intake Note: Akil 83 yr old right hand dominant male presents today for a follow up visit for bilateral hand contracture. States left is worse than his right .Denies any previous treatments. He only has discomfort when trying to straighten the fingers out. Last seen with Homero Wallace who wants patient to follow-up with Dr. Soliz for surgical consult vs injection treatment for bilateral Dupuytren's contractures. Allergies tamsulosin Allergy (Unknown, Verified 02/24/24 09:22) dizziness, weakness HPI HPI OV- Bilat Dupuytren's: Details: Akil is an 83 year old right hand dominant man who presents for bilateral hand contractures. He complains of contractures of his bilateral small fingers, and his left ring finger. He finds his left hand is more bothersome. He says this has been present for several years now, and is becoming bothersome & limiting. He says most of his discomfort occurs when trying to straighten his fingers out. He denies any numbness or tingling He says his mother had similar deformities but worse in her old age He has a Hx of A-fib, kidney disease, dementia & memory issues. He walks with a shuffling gate. He is on Eliquis. He lives with a roommate & has a brother in [place]. [facility] Medical History (Updated 02/24/24 @ 09:23 by Oscar Stearns) Normal routine physical examination Anticoagulation management encounter Memory deficit Pneumonia Laboratory tests ordered as part of a complete physical exam (CPE) Colon cancer screening Cough Cognitive changes Lumbar spinal stenosis Hypertension Erectile dysfunction Feeling of incomplete bladder emptying Post-void dribbling Weak urinary stream Nocturia Elevated PSA Surgical History Hx of inguinal hernia repair Hx of arthroscopy of right knee Hx of colonoscopy Family History Father Prostate cancer Social History Household Members: Friend(s) Housing: Apartment Alcohol intake: current Alcohol intake frequency: holidays/special occasions only Patient Tobacco Use Status: Former Tobacco user e-Cigarette/Vaping Use: Never Used service: No Current occupational status: retired Current occupational exposures/hazards: No Sexual orientation: Unable to collect Gender identity: Unable to collect Cognitive needs: No Hearing needs: Yes Vision needs: Yes Review of Systems Const All systems reviewed & are unremarkable except as noted in HPI and below Physical Exam Vital Signs: BMI result Body Mass Index 25.1 Const General: cooperative, healthy appearing and no acute distress Orientation/consciousness: patient oriented x3 HEENT Head: Yes normocephalic and Yes atraumatic Eyes EOM: EOMs intact bilaterally Resp Effort & Inspection: normal respiratory effort and able to speak in complete sentences Cardio Jugular venous distension: no JVD Skin General skin exam: turgor normal Rashes: no rashes Neuro General: patient oriented x3 Extrem Other: Evaluation of Bilateral Upper Extremity: The patient is alert, oriented, and in no acute distress Neuro: sensation is normal to the tips of all digits Vascular: Cap refill brisk ROM: He can bring his fingers closed to a fist bilaterally He can extend his thumbs, index, and middle fingers bilaterally Left hand: Visible contractures of the small finger MCP 15/PIP 85/DIP 30 Cord extending down ulnar aspect of the digit, from MCP to DIP joint More slender cord extending down the radial aspect of digit to middle phalanx The small finger PIP joint cannot be passively extended, even when the MCP joint is extended Visible contractures of the ring finger MCP 25/PIP 45/DIP 0 Central cord extending from the palm to the ulnar aspect of the middle phalanx Right hand: Visible contractures of the small finger MCP 10/PIP 70/DIP 20 There is a cord extending from the palm to the radial side of the DIP joint Skin: No lacerations or abrasions. General: No Ecchymosis. No Erythema or evidence of infection. Psych Appearance: grossly normal Affect: normal affect Attitude: cooperative Assessment & Plan Assessment & Plan (1) Dupuytren contracture of left hand: Code(s): M72.0 - Palmar fascial fibromatosis [Dupuytren] Category: Medical (2) Dupuytren's contracture of right hand: Code(s): M72.0 - Palmar fascial fibromatosis [Dupuytren] Category: Medical (3) A-fib: Code(s): I48.91 - Unspecified atrial fibrillation Category: Medical (4) Dementia: Code(s): F03.90 - Unspecified dementia, unspecified severity, without behavioral disturbance, psychotic disturbance, mood disturbance, and anxiety Category: Medical (5) Kidney disease: Code(s): N28.9 - Disorder of kidney and ureter, unspecified Category: Medical Plan Assessment & Plan: 1. Left small finger Dupuytrens contracture MCP 15/PIP 85/DIP 30 Cord extending down ulnar aspect of the digit, from MCP to DIP joint More slender cord extending down the radial aspect of digit to middle phalanx 2. Left ring finger Dupuytrens contracture MCP 25/PIP 45/DIP 0 Central cord extending from the palm to the ulnar aspect of the middle phalanx I educated him about this condition I discussed operative and non-operative treatment options The patient would like to proceed with surgery, beginning with the left side The risks and benefits of operative treatment were discussed with the patient and the patient wishes to proceed with surgery. These risks include, but are not limited to risk of damage to blood vessels, nerves, tendons, infection, recurrence, incomplete relief of preoperative symptoms, persistent pain, possible need for further surgery and the risks associated with regional blocks and anesthesia. The plan is to take the patient to the operating room sometime in the next few weeks for the following procedures: 1. Left small finger partial dupuytrens fasciectomy, under general 2. Left ring finger partial dupuytrens fasciectomy, under general All of the preoperative paperwork including the consent was reviewed today. All the patient's questions were answered. The patient understands they will be contacted by our professor of surgery soon to schedule this procedure He denies Diabetes, asthma, lung issues He has a Hx of A-fib, kidney issues, and is on Eliquis Discuss possible Cardiac clearance with anesthesia Please note that greater than 30 minutes was spent with this patient going over the history, evaluating the patient and radiographs, formulating possible treatment options, discussing them with the patient, and documenting the visit. 3. Right small finger Dupuytren's contracture This will be addressed at a later date. Even though he is right handed, he finds the left hand more bothersome. Scribed for Helen Soliz MD by Oscar Stearns, medical office worker, on 02/24/24 at 9:30 AM, EST. Coding Level of Care Code Est Pt Level 5 (17818) Diagnoses Dupuytren contracture of left hand M72.0 Dupuytren's contracture of right hand M72.0 A-fib I48.91 Dementia F03.90 Kidney disease N28.9
[2024-02-24 09:15] VITALS: BMI 25.1
== END 2024-02-24 09:52 | disposition home or self-care (01) ==
PROVIDERS: PCP Nurse Practitioner Family; Visit Provider Orthopaedic Surgery
DX: M72.0 Palmar fascial fibromatosis [Dupuytren] (principal); I48.91 Unspecified atrial fibrillation; F03.90 Unspecified dementia, unspecified severity, without behavioral disturbance, psychotic disturbance, mood disturbance, and anxiety; N28.9 Disorder of kidney and ureter, unspecified
CPT/HCPCS: 99214

== ENCOUNTER 2024-04-18 08:20 | Outpatient (AMB) | payer OTHER, SELFPAY ==
--- NOTE | 2024-04-18 08:21 | MHC.PC.OV ---
Vital Signs 04/18/24 08:31 Height 5 ft 8 in Weight 160 lb BMI 24.3 BP 119/61 Blood Pressure Location Rt brachial Position Sitting Respiration 16 Pulse 55 Pulse Source Pulse Oximeter Temp 97.4 F Temp Source Oral Pulse Oximetry (%) 99 Oxygen Delivery Method Room Air Intake Visit Reasons: 2 mos HTN, vit D deficiency, anxiety, depression Intake Note: patient here for follow up om HTN, Vit D deficiancy, anxiety and depression End Finder Forming Department Required: No Allergies tamsulosin Allergy (Unknown, Verified 04/18/24 08:38) dizziness, weakness Medication List - Last Reconciled 04/18/24 by George [place] CNP amlodipine 10 mg PO DAILY 90 days apixaban (Eliquis) 5 mg PO BID 90 days atenolol 50 mg PO DAILY atorvastatin 80 mg PO DAILY 90 days buspirone 10 mg PO BID 90 days carbamide peroxide 6.5% (Debrox) 5 drps otic (ear) right DAILY 4 days cetirizine (Zyrtec) 10 mg PO DAILY 30 days cholecalciferol (vitamin D3) 50 mcg PO DAILY 90 days donepezil 10 mg PO DAILY 30 days irbesartan 300 mg PO DAILY miscellaneous medical supply 1 cane for ambulation mixhlopqbosb-glwa-rfdmz acid 18-400 mg-mcg (Centrum Complete) 1 tab PO DAILY psyllium husk (Metamucil) 1 tbsp PO BID 30 days sertraline 100 mg PO DAILY Tobacco use date assessed: 04/18/24 Fall risk assessment: 2 + Falls in past year Last assessed Fall Risk: 04/18/24 Dental Screening Dental Screen Date: 04/18/24 Did you have a dental visit in the last 12 months?: Yes Did you have a dental problem in the last 6 months where you did not have access to dental care?: No Was dental information given to patient?: Patient has dentist HPI HPI Comments History of Present Illness Details 83-year-old male presents for hypertension, vitamin-D deficiency, anxiety, and depression follow-up. He admits to taking his medications as prescribed without adverse reactions. He reports controlled anxiety and depressive symptoms. He offers no complaints and denies acute symptoms at this time. He forgot to get vitamin-D blood work done for this visit as planned. [facility] Medical History (Updated 04/12/24 @ 11:43 by George [place] CNP) Normal routine physical examination Anticoagulation management encounter Memory deficit Pneumonia Laboratory tests ordered as part of a complete physical exam (CPE) Colon cancer screening Cough Cognitive changes Lumbar spinal stenosis Hypertension Erectile dysfunction Feeling of incomplete bladder emptying Post-void dribbling Weak urinary stream Nocturia Elevated PSA Surgical History Hx of inguinal hernia repair Hx of arthroscopy of right knee Hx of colonoscopy Family History Father Prostate cancer Social History Household Members: Friend(s) Housing: Apartment Alcohol intake: current Alcohol intake frequency: holidays/special occasions only Patient Tobacco Use Status: Former Tobacco user e-Cigarette/Vaping Use: Never Used service: No Current occupational status: retired Current occupational exposures/hazards: No Sexual orientation: Unable to collect Gender identity: Unable to collect Cognitive needs: No Hearing needs: Yes Vision needs: Yes Questionnaire PHQ-9 Over the last 2 weeks, how often have you been bothered by any of the following problems? 1. Little interest or pleasure in doing things: more than half the days 2. Feeling down, depressed, or hopeless: not at all 3. Trouble falling or staying asleep, or sleeping too much: not at all 4. Feeling tired or having little energy: several days 5. Poor appetite or overeating: not at all 6. Feeling bad about yourself - or that you are a failure or have let yourself or your family down: not at all 7. Trouble concentrating on things, such as reading the newspaper or watching television: not at all 8. Moving or speaking so slowly that other people could have noticed. Or the opposite - being so fidgety or restless that you have been moving around a lot more than usual: several days 9. Thoughts that you would be better off or of hurting yourself in some way: not at all Total score: 4 Depression Screening Interpretation: Negative Depression Screening Done: Yes 32880 - PHQ-9 Billing: Yes Source: Developed by Drs. Domo Mckinley, Cindi Mcfadden, Randy Sotelo and colleagues, with an educational petey from [email or web address]. Thrive Questionnaire Date Thrive assessed: 04/18/24 I am a: Patient What is your living situation today?: I have a steady place to live Within the past 12 months, did the food you bought not last and you didn't have the money to get more?: Never true Within the past 12 months, did you worry whether your food would run out before you got money to buy more?: Never true Do you have trouble paying for medicines?: No Do you have trouble getting transportation to medical appointments?: No Do you have trouble paying your heating and electricity bill?: No Do you have trouble taking care of your child, family member or friend?: No Do you have trouble with day-to-day activities such as bathing, preparing meals, shopping, managing finances, etc.?: No Are you currently unemployed and looking for a job?: No Are you interested in more education?: No Please select the resources that you would like help with: None Currently or been in a relationship where the following occur: No concerns reported THRIVE Score: 0 AUDIT C Alcohol Use Questionnaire (AUDIT-C) 1. How often do you have a drink containing alcohol?: Monthly or less 2. How many drinks containing alcohol do you have on a typical day when you are drinking?: 1 or 2 3. How often do you have six or more drinks on one occasion?: Never Total Score: 1 Score Reviewed/Action Taken: Yes CORBIN-7 AMB Questionnaire CORBIN-7 Date CORBIN - 7 assessed: 04/18/24 Feeling nervous, anxious, or on edge: 1 = Several days Not being able to stop or control worryin = Not at all Worrying too much about different things: 0 = Not at all Trouble relaxin = Not at all Being so restless that it is hard to sit still: 0 = Not at all Becoming easily annoyed or irritable: 1 = Several days Feeling afraid as if something awful might happen: 0 = Not at all Total CORBIN-7 score (0-4 normal; 5-9 mild; 10-14 moderate; 15-21 severe): 2 Source: Developed by Drs. Domo Mckinley, Randy Ortiz and colleagues, with an educational petey from [email or web address]. CORBIN-7 Assessment Billing CORBIN-7 Assessment Tool: CORBIN-7 Assessment 13206 Review of Systems Const Details: Const Denies chills, Denies fatigue, Denies fever(s), Denies headache(s) and Denies weakness ENT Denies dizziness and Denies headache(s) Card Denies chest pain, Denies lightheadedness, Denies dyspnea and Denies other (Palpitations) Resp Denies cough, Denies dyspnea, Denies wheezing and Denies other ( shortness of breath) GI Denies abdominal pain, Denies melena, Denies hematochezia, Denies change in bowel habits, Denies dyspepsia and Denies nausea Denies hematuria and Denies dysuria Musc Denies abnormal gait, Denies myalgias, Denies arthralgias, Denies numbness and Denies tingling Skin/Breast Denies rash, Denies unusual bruising and Denies wounds Neuro Denies abnormal gait, Denies dizziness, Denies headache(s), Denies memory loss, Denies numbness, Denies Sensory deficit (Neuro), Denies tingling and Denies weakness Psych Denies anxiety, Denies depression, Denies memory loss Endo Denies cold intolerance, Denies fatigue, Denies heat intolerance, Denies polydipsia and Denies polyuria Aller/Immun Denies wheezing Physical exam (Primary Care) BMI result Body Mass Index 24.3 Tobacco/Smoking Status: Tobacco use Status Tobacco use date assessed 02/12/24 03/03/24 09:20 Patient Tobacco Use Status Former Tobacco user 03/03/24 09:20 e-Cigarette/Vaping Use Never Used 03/03/24 09:20 Depression Screening Interpretation: Negative Thrive Assessment: Date of Thrive Assessment Date Thrive assessed 02/12/24 04/11/24 15:34 Currently or been in a relationship where the following occur: No concerns reported Const Other: General: no acute distress and well developed Nutritional Appearance: well nourished Orientation/consciousness: patient oriented x3 HENMT Head: Yes normocephalic and Yes atraumatic Eyes General: appearance normal, both eyes and all related structures Pupils: Equal, round and reactive pupils present EOM: EOMs intact bilaterally Resp Effort & Inspection: normal respiratory effort Auscultation: clear to auscultation bilaterally Cardio Rate: regular rate Rhythm: regular rhythm Heart sounds: S1 normal heart sound present, S2 normal heart sound present, no gallops, no murmurs and no rubs GI Palpation (GI): No Abdominal aortic bruit present, Soft to palpation, nontender, No hepatosplenomegaly present and No Rebound tenderness present Auscultation: normal bowel sounds General: Yes no CVA tenderness Back/Spine/Pelvis Back: no CVA tenderness Cervical Spine: cervical ROM normal and No Cervical spine tenderness Thoracic/Lumbar Spine: thoraco-lumbar ROM normal, No pain with thoraco-lumbar ROM, No thoracic spinal tenderness and No lumbar spinal tenderness Extrem General: Yes normal to inspection, No edema and No calf tenderness Skin General: warm and dry. Normal skin color. Normal skin turgor Neuro General: patient oriented x3, gait normal and no focal neuro deficit Cranial nerves: Yes Equal, round and reactive pupils present Cognition (Neuro): normal cognition Gait exam (Neuro): Normal gait present Sensory Exam: No Sensory deficit (Neuro) Psych Appearance: grossly normal Affect: normal affect Attitude: cooperative Thought process: Normal thought process present Coding Level of Care Code Est Pt Level 3 (57937) Diagnoses Primary hypertension I10 Hypertension type: primary hypertension Vitamin D deficiency E55.9 Anxiety and depression F41.9; F32.A Additional Codes CORBIN-7 Assessment Billing - CORBIN-7 Assessment Tool: CORBIN-7 Assessment 11928 ([id number]) PHQ-9 - 56284 - PHQ-9 Billing: Yes ([id number]) Assessment & Plan Assessment & Plan (1) Hypertension: Code(s): I10 - Essential (primary) hypertension Category: Medical Qualifiers: Hypertension type: primary hypertension Qualified Code(s): I10 - Essential (primary) hypertension Plan: Blood pressure today is 119/61, within goal of less than 130/80. Continue current treatment regimen. Follow-up in 3 months or sooner with symptoms or concerns. Verbalized understanding and agreed with treatment plan. (2) Vitamin D deficiency: Code(s): E55.9 - Vitamin D deficiency, unspecified Category: Medical Plan: He did not get vitamin-D blood work done for this visit as planned. Vitamin-D level in January was low, 19.1. Continue current treatment regimen. He will get vitamin-D blood work done today. Will review results and make changes as needed. Verbalized understanding and agreed with the plan. (3) Anxiety and depression: Code(s): F41.9 - Anxiety disorder, unspecified; F32.A - Depression, unspecified Category: Medical Plan: Controlled anxiety and depressive symptoms. Continue current treatment regimen. Follow-up in 3 months. Verbalized understanding and agreed with treatment plan.
[2024-04-18 08:31] VITALS: BP 119/61; PULSE 55; RESP 16; TEMP 36.3; O2SAT 99; BMI 24.3
--- OUTSIDE RECORDS SUMMARY | 2024-04-18 08:31 | XMS_ITS | Clinical Summary ---
Author Organization [facility] Address [address] [place] [phone] Care Team Providers Care Rail Detector Car Operator Name Role Phone Sergio Soni MD Primary Care Provider [phone] Social History Tobacco Use Types Packs/Day Years Used Date Smoking Tobacco: Never Assessed Sex and Gender Information Value Date Recorded Sex Assigned at Not on file Legal Sex Male 1:48 AM EST Gender Identity Not on file Sexual Orientation Not on file Plan of Treatment Health Maintenance Due Date Last Done Comments DTaP,Tdap,and Td Vaccines (1 - Tdap) 05/13/1959 Pneumococcal Vaccine: 50+ Ye ars (1 of 1 - PCV) 05/13/1989 Zoster Vaccines (1 of 2) 05/13/1989 RSV Immunization Patients 60 + Years Old (1 - 1-dose 75+ series) 05/13/2014 Cholesterol Screening (Lipid Panel) 01/12/2022 Depression Screening 01/12/2022 Falls Risk Assessment 01/12/2022 Social Influencers of Health Screening 01/12/2022 COVID-19 Vaccine ( - 2023-2 5 season) 2023 Influenza Vaccine (#1) 2023 HIB Vaccines Aged Out No longer eligi ble based on patient's age to complete this topic HPV Vaccines Aged Out No longer eligi ble based on patient's age to complete this topic Hepatitis A Vaccines Aged Out No long er eligible based on patient's age to complete this topic Hepatitis B Vaccines Aged Out No long er eligible based on patient's age to complete this topic IPV Vaccines Aged Out No longer eligi ble based on patient's age to complete this topic MMR Vaccines Aged Out No longer eligi ble based on patient's age to complete this topic Meningococcal ACWY Vaccine Aged Out N o longer eligible based on patient's age to complete this topic Meningococcal B Vacine Aged Out No lo nger eligible based on patient's age to complete this topic RSV Immunization Patients Un aileen 20 months Aged Out No longer eligible b ased on patient's age to complete this topic Varicella Vaccines Aged Out No longer eligible based on patient's age to complete this topic Care Teams Rail Detector Car Operator Relationship Specialty Start Date End Date Sergio Soni MD [address] [phone] PCP - General Internal Medicine 03/07/21
--- OUTSIDE RECORDS SUMMARY | 2024-04-18 08:31 | XMS_ITS | Clinical Summary ---
Author Organization [facility] Address [address] [place] [address] Phone Care Team Providers Care Data Lead Name Role Phone George [place] CNP Primary Care Provider [phone] Allergies Active Allergy Reactions Criticality Noted Date Comments Tamsulosin Other (see comments) 07/15/2022 Dizziness & weakness Medications atorvastatin (LIPITOR) 80 MG tablet Take 80 mg by mouth 1 (one) time each day 05/08/2020 Active donepezil (ARICEPT) 5 MG tablet Take 5 mg by mouth 1 (one) time each day 05/15/2020 Active metoprolol succinate XL (TOPROL-XL) 100 MG 24 hr tablet Take 100 mg by mouth 1 (one) time each day Do not crush or chew. Active Cholecalciferol (Vitamin D3) 50 MCG (2000 UT) tablet Take 50 mcg by mouth 1 (one) time each day Active apixaban (ELIQUIS) 5 MG tablet Take 5 mg by mouth in the morning and 5 mg in the evening. 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 Acute nontraumatic kidney injury 07/16/2022 Dyslipidemia 07/16/2022 Family History Medical History Relation Comments Cancer Father prostate No Known Problems Mother Relation Status Comments Father Mother Social History Tobacco Use Types Packs/Day Years Used Date Smoking Tobacco: Former Cigarettes Smokeless Tobacco: Never Tobacco Cessation:Counseling Given: Not Answered Alcohol Use Standard Drinks/Week Comments Yes 1 (1 standard drink = 0.6 oz pur e alcohol) Sex and Gender Information Value Date Recorded Sex Assigned at Not on file Legal Sex Male 8:59 AM EDT Gender Identity Not on file Sexual Orientation Not on file Last Filed Vital Signs Vital Sign Reading Time Taken Comments Blood Pressure 118/64 07/16/2022 7:38 AM EDT Pulse 54 07/16/2022 7:38 AM EDT Temperature - - Respiratory Rate - - Oxygen Saturation 99% 07/16/2022 7:38 AM EDT Inhaled Oxygen Concentration - - Weight 69.4 kg (153 lb) 07/16/2022 7:38 AM EDT Height - - Body Mass Index - - Plan of Treatment Health Maintenance Due Date Last Done Comments Pneumococcal Vaccine: 65+ Years (1 of 2 - PCV) 05/13/1946 Influenza Vaccine (#1) 2023 Hepatitis B Vaccine Aged Out 12/15/2000, 07/03/2000, 06/05/2000 No longer eligible based on patient's age to complete this topic Insurance [employer] Care Teams Data Lead Relationship Specialty Start Date End Date George [place] CNP [address] [facility] [place] [address] PCP - General 04/09/22
== END 2024-04-18 08:58 | disposition home or self-care (01) ==
PROVIDERS: PCP Nurse Practitioner Family; Visit Provider Nurse Practitioner Family
DX: I10 Essential (primary) hypertension (principal); E55.9 Vitamin D deficiency, unspecified; F41.9 Anxiety disorder, unspecified; F32.A Depression, unspecified

== ENCOUNTER → 2024-04-18 08:20 | Outpatient (BNVA) | payer OTHER, SELFPAY | PROVIDERS: PCP Nurse Practitioner Family; Visit Provider Nurse Practitioner Family | DX: I10 Essential (primary) hypertension (principal); E55.9 Vitamin D deficiency, unspecified; F41.9 Anxiety disorder, unspecified; F32.A Depression, unspecified | CPT/HCPCS: 96127 ==

== ENCOUNTER 2024-04-18 09:06 | Outpatient (REF) | payer OTHER, SELFPAY ==
--- OUTSIDE RECORDS SUMMARY | 2024-04-18 09:40 | XMS_ITS | Clinical Summary ---
Author Organization [facility] Address [address] [place] [phone] Care Team Providers Care Cutter Machine Name Role Phone Sergio Soni MD Primary Care Provider [phone] Social History Tobacco Use Types Packs/Day Years [...] age to complete this topic Care Teams Cutter Machine Relationship Specialty Start Date End Date Sergio Soni MD [address] [phone] PCP - General Internal Medicine 03/07/21
--- OUTSIDE RECORDS SUMMARY | 2024-04-18 09:41 | XMS_ITS | Clinical Summary ---
Author Organization [facility] Address [address] [place] [address] Phone Care Team Providers Care Machine Hoop Maker Helper Name Role Phone George [place] CNP Primary Care Provider [phone] Allergies Active Allergy Reactions Criticality Noted Date [...] complete this topic Insurance [employer] Care Teams Machine Hoop Maker Helper Relationship Specialty Start Date End Date George [place] CNP [address] [place] [address] PCP - General 04/09/22
[2024-04-18 11:35] LABS: Hematocrit 41.9 % (42.0-52.0); Hemoglobin 13.3 g/dl (14.0-18.0); Mean Corpuscular HGB Conc 31.7 g/dl (31.0-36.0); Mean Corpuscular Hemoglobin 29.4 pg (27.0-33.0); Mean Corpuscular Volume 92.5 fL (80.0-98.0); Mean Platelet Volume 9.9 fL (9.4-12.4); Platelet Count 218 X10*3/uL (160-400); Red Blood Count 4.53 X10*6/uL (4.60-5.80); Red Cell Distribution Width 13.8 % (11.0-16.0); White Blood Count 7.1 X10*3/uL (4.8-10.8)
[2024-04-18 12:58] LABS: Vitamin D 25-OH Total 58.2 ng/mL (>30)
== END 2024-04-18 09:07 | disposition home or self-care (01) ==
LOC: HO.WFDLDS 09:06
PROVIDERS: Visit Provider Nurse Practitioner Family
DX: Z01.818 Encounter for other preprocedural examination (principal); E55.9 Vitamin D deficiency, unspecified
CPT/HCPCS: 36415; 82306; 85027

== ENCOUNTER 2024-04-25 09:10 | Outpatient (REF) | payer OTHER, SELFPAY ==
[2024-04-25 11:55] LABS: Anion Gap 14 (12-20); Blood Urea Nitrogen 13 mg/dL (9-16); Calcium 9.5 mg/dL (8.4-10.2); Carbon Dioxide 24 mmol/L (22-29); Chloride 107 mmol/L (96-108); Estimated Glomerular Filt Rate > 60; Glucose Random 122 mg/dL (60-115); Potassium 4.8 mmol/L (3.3-5.1); Sodium 140 mmol/L (135-145)
== END 2024-04-25 09:11 | disposition home or self-care (01) ==
LOC: HO.WFDLDS 09:10
PROVIDERS: Visit Provider Nurse Practitioner Family
DX: Z01.818 Encounter for other preprocedural examination (principal)
CPT/HCPCS: 36415; 80048

== ENCOUNTER 2024-06-23 09:26 | Outpatient (AMB) | payer OTHER, SELFPAY ==
--- NOTE | 2024-06-23 09:42 | A.OFFVIS_ITS ---
Vital Signs 06/23/24 09:43 Height 5 ft 8 in Weight 160 lb BMI 24.3 Intake Visit Reasons: Preop LT RF/SM dupuytrens 06/30/24 AR Intake Note: Akil is an 84 year old right hand dominant male who presents today for a pre operative appointment - he is booked for a Left Ring and Middle Finger Dupuytrens 06/30/24. Patient is currently on Eliquis. Allergies tamsulosin Allergy (Unknown, Verified 06/23/24 09:47) dizziness, weakness HPI HPI Preop LT RF/SM dupuytrens 06/30/24 AR: Details: Akil is an 84 year old right hand dominant male who presents today for a pre operative appointment - he is booked for a Left Ring and Middle Finger Dupuytrens 06/30/24. Patient is currently on Eliquis. Today, the patient expresses that he would like to postpone surgery at this time, as ?I am 84 years old, I do not know if this surgery is worth it due to the long recovery. Patient states he would like to have some more time to think about surgery. [facility] Medical History (Updated 06/15/24 @ 12:24 by Emi Bernal RN) BPH (benign prostatic hyperplasia) Elevated cholesterol Chronic renal insufficiency Atrial fibrillation Pre-diabetes Anxiety Depression Movement disorder Thrombocytopenia Cognitive changes Lumbar spinal stenosis Memory deficit Hypertension Erectile dysfunction Feeling of incomplete bladder emptying Post-void dribbling Weak urinary stream Nocturia Elevated PSA Surgical History Hx of inguinal hernia repair Hx of arthroscopy of right knee Hx of colonoscopy Family History Father Prostate cancer Social History Household Members: Friend(s) Housing: Apartment Are you a primary patient care representative to a significant other at home: No Do you presently have visiting nurse or other home services: No Alcohol intake: current Alcohol intake frequency: holidays/special occasions only Patient Tobacco Use Status: Former Tobacco user Tobacco use type: Cigarette Years Smoked: 20 e-Cigarette/Vaping Use: Never Used Use of substances other than those prescribed or required for medical reasons: No Have you been hit, kicked, punched, or otherwise hurt by someone within the past year? If so, by whom?: No Spiritual Healthcare Practices: no Evangelical Healthcare Practices: no Cultural Healthcare Practices: no Are you DNR?: No Advance Directives: No (brother is primary contact) Advance Directives Information Provided: Yes (as above noted) Advance Directives on File: No Poor oral hygiene: No service: No Current occupational status: retired Current occupational exposures/hazards: No Sexual orientation: Unable to collect Gender identity: Unable to collect Cognitive needs: No Hearing needs: Yes Vision needs: Yes Review of Systems Const All systems reviewed & are unremarkable except as noted in HPI and below Physical Exam Vital Signs: BMI result Body Mass Index 24.3 Const General: cooperative, healthy appearing and no acute distress Orientation/consciousness: patient oriented x3 HEENT Head: Yes normocephalic and Yes atraumatic Eyes EOM: EOMs intact bilaterally Resp Effort & Inspection: normal respiratory effort and able to speak in complete sentences Cardio Jugular venous distension: no JVD Skin General skin exam: turgor normal Rashes: no rashes Neuro General: patient oriented x3 Extrem Other: Evaluation of Bilateral Upper Extremity: The patient is alert, oriented, and in no acute distress Neuro: sensation is normal to the tips of all digits Vascular: Cap refill brisk ROM: He can bring his fingers closed to a fist bilaterally He can extend his thumbs, index, and middle fingers bilaterally Left hand: Visible contractures of the small finger MCP 15/PIP 85/DIP 30 Cord extending down ulnar aspect of the digit, from MCP to DIP joint More slender cord extending down the radial aspect of digit to middle phalanx The small finger PIP joint cannot be passively extended, even when the MCP joint is extended Visible contractures of the ring finger MCP 25/PIP 45/DIP 0 Central cord extending from the palm to the ulnar aspect of the middle phalanx Right hand: Visible contractures of the small finger MCP 10/PIP 70/DIP 20 There is a cord extending from the palm to the radial side of the DIP joint Skin: No lacerations or abrasions. General: No Ecchymosis. No Erythema or evidence of infection. Psych Appearance: grossly normal Affect: normal affect Attitude: cooperative Assessment & Plan Assessment & Plan (1) Dupuytren's contracture of right hand: Code(s): M72.0 - Palmar fascial fibromatosis [Dupuytren] Category: Medical (2) Dupuytren contracture of left hand: Code(s): M72.0 - Palmar fascial fibromatosis [Dupuytren] Category: Medical Plan 1. Dupuytren's contracture of bilateral hands Left hand contracture measurements MCP 15/PIP 85/DIP 30 Right hand contracture measurementsMCP 25/PIP 45/DIP 0 Surgery rescheduled today to 10/27/2024 Patient is educated that this condition is likely to worsen if he does not proceed with surgical intervention Patient states understanding of this Follow-up for preop appointment prior to new scheduled surgical intervention Coding Level of Care Code Est Pt Level 3 (45618) Diagnoses Dupuytren's contracture of right hand M72.0 Dupuytren contracture of left hand M72.0
[2024-06-23 09:43] VITALS: BMI 24.3
--- OUTSIDE RECORDS SUMMARY | 2024-06-23 10:05 | XMS_ITS | Clinical Summary ---
Author Organization [facility] Address [address] [place] [phone] Care Team Providers Care Video Network Engineer Name Role Phone Sergio Soni MD Primary Care Provider [phone] Social History Tobacco Use Types Packs/Day Years [...] Vaccines (1 of 2) 05/13/1989 RSV Immunization Adult Patie nts (1 - 1-dose 75+ series) 05/13/2014 COVID-19 Vaccine (2023-2 5 season) 2023 Influenza Vaccine (Season Ended) 2024 HIB Vaccines Aged Out No longer eligi [...] age to complete this topic Meningococcal B Vaccine Aged Out No l onger eligible based on patient's age to complete this topic RSV Immunization Patients Un aileen 20 months Aged Out No longer eligible b ased on patient's age to complete this topic Varicella Vaccines Aged Out No longer eligible based on patient's age to complete this topic Care Teams Video Network Engineer Relationship Specialty Start Date End Date Sergio Soni MD [address] [place] [phone] PCP - General Internal Medicine 03/07/21
--- OUTSIDE RECORDS SUMMARY | 2024-06-23 10:06 | XMS_ITS | Clinical Summary ---
Author Organization [facility] Address [address] [place] [address] Phone Care Team Providers Care Banbury Machine Operator Name Role Phone George [place] CNP Primary Care Provider [phone] Allergies Active Allergy Reactions Criticality Noted Date [...] Due Date Last Done Comments Pneumococcal Vaccine: 50+ Years (1 of 2 - PCV) 05/13/1959 Influenza Vaccine (Season Ended) 2024 Hepatitis B Vaccine Aged Out 12/15/2000, 07/03/2000, 06/05/2000 No longer eligible based on patient's age to complete this topic Insurance [employer] Care Teams [place] Machine Operator Relationship Specialty Start Date End Date George [place] CNP [address] [place] [address] PCP - General 04/09/22
== END 2024-06-23 09:53 | disposition home or self-care (01) ==
LOC: HO.HOS 09:26
PROVIDERS: PCP Nurse Practitioner Family
DX: M72.0 Palmar fascial fibromatosis [Dupuytren] (principal)
CPT/HCPCS: 99213

== ENCOUNTER 2024-07-08 06:57 | Outpatient (REF) | payer OTHER, SELFPAY ==
[2024-07-08 08:09] LABS: PSA,Total (Free>4and<10) 7.69 ng/mL (0.00-4.00)
[2024-07-11 14:15] LABS: Free Prostate Spec Ag 2.2 ng/mL; Percent Free Prostate Spec Ag 30 % (calc) (>25); Prostate Specific Ag Total 7.3 ng/mL (< OR = 4.0)
== END 2024-07-08 06:58 | disposition home or self-care (01) ==
LOC: HO.LAB 06:57
PROVIDERS: PCP Nurse Practitioner Family; Visit Provider Urology
DX: R97.20 Elevated prostate specific antigen [PSA] (principal); Z12.5 Encounter for screening for malignant neoplasm of prostate
CPT/HCPCS: 36415; 84153; 84154

== ENCOUNTER 2024-07-14 08:20 | Outpatient (AMB) | payer OTHER, SELFPAY ==
--- NOTE | 2024-07-14 08:30 | A.OFFVIS_ITS ---
Intake Visit Reasons: 6m/PSA Intake Note: Patient is present for 6M/PSA Urology Medication:NONE Antibiotic Allergy:TAMSULOSIN Blood Thinner:[employer] Tax Manager Required: No Allergies tamsulosin Allergy (Unknown, Verified 07/14/24 08:31) dizziness, weakness HPI Comments Details: Olman SALGADO is a very pleasant male. He is a patient of Dr. Spring. He is seen in the office today for the following urologic conditions. - lower urinary tract symptoms BRETT 3+ normal PSA continues to slowly rise off finasteride but high free% Starting to have some degree of bladder instability but not interested in medications Repeat bladder ultrasound Six-month follow-up PSA tele Urinary Symptoms Review - No mentioned urinary incontinence or specific frequency issues - Moderate increase in PSA to 7.3 - Free PSA percentage is 30% - Noted to have a large prostate - No specific reports of pain or pressure symptoms during urination Lower Urinary Tract Symptoms:? Current visit is for?further evaluation of, lower urinary tract symptoms, predominate obstructive symptoms ?- father with prostate cancer.? Prior treatments include? - Had been managed for 3 years with another urologist. Treatment focused on terazosin and oxybutynin. No estimate of prostate size. Had previously been on finasteride but experienced declined libid o. ?06/26 , laser procedure.? Prostate Symptom Score?02/26 , Moderate (9-19), Bother 3 ? Symptoms include?02/26 , incomplete emptying, weak stream, nocturia (>2), urgency, and are progressing.? Results from testing include? cystoscopy ?high riding bladder neck (median bar) trabeculations 03/29 ? renal/bladder us ?Yes ? date ?03/27/2017 thickend wall with trabeculations ? PVR ?26 ? prostate size ?50 ? Prior Prostate Score?unknown.? PSA?01/26 1.4 - 08/29 3.7, 03/02 3.6, 08/30 3.7, 08/01 4.6 F 37%, 04/04 13, 08/02 5.0 32% free, 01/02 5.6 33%, 07/03 7.3 30% ? Prostate volume?50+gm.? Testing at next visit will include?bladder scan.? Treatment plan?Continue with surveillance. [facility] Medical History (Updated 06/15/24 @ 12:24 by mEi Bernal RN) BPH (benign prostatic hyperplasia) Elevated cholesterol Chronic renal insufficiency Atrial fibrillation Pre-diabetes Anxiety Depression Movement disorder Thrombocytopenia Cognitive changes Lumbar spinal stenosis Memory deficit Hypertension Erectile dysfunction Feeling of incomplete bladder emptying Post-void dribbling Weak urinary stream Nocturia Elevated PSA Surgical History Hx of inguinal hernia repair Hx of arthroscopy of right knee Hx of colonoscopy Family History Father Prostate cancer Social History Household Members: Friend(s) Housing: Apartment Are you a primary acute care surgeon to a significant other at home: No Do you presently have visiting nurse or other home services: No Alcohol intake: current Alcohol intake frequency: holidays/special occasions only Patient Tobacco Use Status: Former Tobacco user Tobacco use type: Cigarette Years Smoked: 20 e-Cigarette/Vaping Use: Never Used service: No Current occupational status: retired Current occupational exposures/hazards: No Sexual orientation: Unable to collect Gender identity: Unable to collect Cognitive needs: No Hearing needs: Yes Vision needs: Yes Review of Systems Const Denies chills and Denies fever(s) Card Reports no additional complaints and Denies syncope Resp Denies cough GI Denies abdominal pain and Denies heartburn Reports as per HPI and Denies change in libido Neuro Denies syncope Psych Denies change in libido Endo Denies change in libido Physical Exam Const General: cooperative, healthy appearing, comfortable and no acute distress Orientation/consciousness: patient oriented x3 HEENT Face and sinus: Yes normal facial exam Mouth: moist mucous membranes Neck Neck: Yes normal visual inspection, Yes full ROM and Yes trachea midline Chest Chest palpation & inspection: normal inspection of the chest Resp Effort & Inspection: normal respiratory effort, able to speak in complete sentences and no respiratory distress GI Inspection: Yes normal to inspection Rectal Exam - Male: Yes normal sphincter tone and Yes prostate normal Male General Exam: Yes normal external exam Penis: normal penis and circumcised Meatus: meatus normal Scrotum: scrotum normal Testes: Testes normal Back/Spine/Pelvis Cervical Spine: normal cervical lordosis Thoracic/Lumbar Spine: thoracic and lumbar spine normal to inspection Skin General skin exam: no rashes or lesions noted Neuro General: patient oriented x3, gait normal, tone normal and moves all extremities Extrem General: Yes normal to inspection and Yes capillary refill normal Results AMB Urinalysis, Automated UA Leukoctes 0 Pawan/uL Last Edit by JOJO Torres on 07/14/24 08:52 UA Nitrite Negative Last Edit by JOJO Torres on 07/14/24 08:52 UA Urobilinogen 0.2 mg/dL Last Edit by JOJO Torres on 07/14/24 08:5 2 UA Protein 30 mg/dL Last Edit by JOJO Torres on 07/14/24 08:52 UA pH 6.0 Last Edit by JOJO Torres on 07/14/24 08:52 UA Blood 25 Damien/uL Last Edit by JOJO Torres on 07/14/24 08:52 UA Specific [place] 1.030 Last Edit by JOJO Torres on 07/14/24 08: 52 UA Ketone Negative Last Edit by JOJO Torres on 07/14/24 08:52 UA Bilirubin 0 mg/dL Last Edit by JOJO Torres on 07/14/24 08:52 UA Glucose 0 mg/dL Last Edit by JOJO Torres on 07/14/24 08:52 Results Reviewed Results Reviewed: Laboratory Last Values Urine pH (Auto) 6.0 07/14/24 08:51 Specific [place] (Auto) 1.030 07/14/24 08:51 Urine Protein (Auto) 30 mg/dL 07/14/24 08:51 Glucose (UA)(Auto) 0 mg/dL 07/14/24 08:51 Urine Ketones (Auto) Negative 07/14/24 08:51 Urine Blood (Auto) 25 Damien/uL 07/14/24 08:51 Urine Nitrite (Auto) Negative 07/14/24 08:51 Urine Bilirubin (Auto) 0 mg/dL 07/14/24 08:51 Urine Urobilinogen (Auto) 0.2 mg/dL 07/14/24 08:51 Leukocyte Esterase (Auto) 0 Pawan/uL 07/14/24 08:51 Assessment & Plan Assessment & Plan (1) Elevated PSA: Code(s): R97.20 - Elevated prostate specific antigen [PSA] Category: Medical (2) BPH loc w urin obs/LUTS: Code(s): N40.1 - Benign prostatic hyperplasia with lower urinary tract symptoms Category: Medical Plan 1. Elevated Prostate-Specific Antigen Psa Schedule bladder ultrasound for prostate size before six-month follow-up. Continue monitoring PSA levels. 2. Benign Prostatic Hyperplasia Bph Monitor enlargement with prostate exam every six months. Focus on observation and control unless severity of symptoms changes. 3. Concerns Regarding Potential Prostate Cancer Continue close surveillance with regular PSA tests and prostate exams. Discussed potential risks and strategies to mitigate concerns. Discussion Notes During the consultation, I discussed with the patient the implications of the increased PSA levels and the resulting need for continuous monitoring, given his history of benign prostatic hyperplasia. We reviewed the importance of tracking prostate size with an ultrasound and the role of PSA in flagging potential malignancies. Discussing his concerns about prostate cancer risks, I reassured him of the ongoing surveillance measures and how they play a critical role in managing any potential shifts in his health status. Together, we established a follow-up plan involving a phone consultation within six months, provided no urgent indications arise. Patient consent was obtained for the outlined monitoring strategy, acknowledging the discussed risks and benefits of potential interventions. Patient Instructions - Schedule and attend a bladder ultrasound to assess prostate size. - Monitor PSA levels regularly as instructed. - Follow up in six months through scheduled phone appointment unless symptoms change. - Continue physical fitness routine to maintain muscle mass and general health. - Notify the office immediately if there are concerns or changes in urinary habits or symptoms. Orders: Orders AMB Urinalysis Automated Today Z13.9 - Encounter for screening, unspecified PSA,Total (Free>4and<10) 6 Months R97.20 - Elevated prostate specific antigen [PSA] US bladder 6 Months R39.12 - Poor urinary stream, R97.20 - Elevated prostate specific antigen [PSA] Patient Instructions: This note is constructed using voice recognition software. While every effort has been made to ensure accuracy export administrator errors may have been included. Imaging studies, laboratory and physical exam results were discussed and reviewe d in detail. No major barriers to patient understanding were identified. An opportunity to ask questions regarding the treatment plan was provided. All questions were answered. The patient expressed understanding and agreement with the above treatment plan. The patient is aware they should contact our office by phone for worsening of their current condition or the appearance of new urologic symptoms. Compliance is encouraged with any medications and followup testing that is ordered. It is a privilege to participate in the urologic care of your patient. If you have any questions or concerns regarding treatment for the above conditions, or other urologic issues, please do not hesitate to contact me. The office telephone contact is [phone]. Sincerely, Dr Osvaldo De La Rosa MD, [facility] - Urology Compassionate Specialist Care for the Genitourinary System Coding Level of Care Code Est Pt Level 3 (58157) Complex EM visit Add On G2211 Diagnoses Elevated PSA R97.20 BPH loc w urin obs/LUTS N40.1
--- OUTSIDE RECORDS SUMMARY | 2024-07-14 08:33 | XMS_ITS | Clinical Summary ---
Author Organization [facility] Address [address] [place] [phone] Care Team Providers Care Industrial Economics Professor Name Role Phone Sergio Soni MD Primary Care Provider [phone]- [phone] Social History Tobacco Use Types Packs/Day Years [...] age to complete this topic Care Teams Industrial Economics Professor Relationship Specialty Start Date End Date Sergio Soni MD [address] [place] [id number] PCP - General Internal Medicine 03/07/21
== END 2024-07-14 09:16 | disposition home or self-care (01) ==
LOC: HO.HUSH 08:21
PROVIDERS: PCP Nurse Practitioner Family; Visit Provider Urology
DX: R97.20 Elevated prostate specific antigen [PSA] (principal); N40.1 Benign prostatic hyperplasia with lower urinary tract symptoms; Z13.9 Encounter for screening, unspecified
CPT/HCPCS: 99213

== ENCOUNTER → 2024-07-14 08:20 | Outpatient (BNVA) | payer OTHER, SELFPAY | PROVIDERS: PCP Nurse Practitioner Family; Visit Provider Urology | DX: N40.1 Benign prostatic hyperplasia with lower urinary tract symptoms (principal); N13.8 Other obstructive and reflux uropathy; R97.20 Elevated prostate specific antigen [PSA]; R39.12 Poor urinary stream | CPT/HCPCS: 81003 ==

== ENCOUNTER 2024-07-22 09:42 | Outpatient (AMB) | payer OTHER, SELFPAY ==
--- NOTE | 2024-07-22 09:44 | A.OFFPC_ITS ---
Vital Signs 07/22/24 09:52 07/22/24 10:14 Height 5 ft 8 in Weight 158 lb 2 oz BMI 24.0 BP 143/70 H 130/70 Blood Pressure Location Lt brachial Lt brachial Position Sitting Sitting Respiration 16 Pulse 61 Pulse Source Pulse Oximeter Temp 97.7 F Temp Source Oral Pulse Oximetry (%) 100 Oxygen Delivery Method Room Air Intake Visit Reasons: 3 mos HTN, anxiety, depression Intake Note: patient here for Htn and anxiety and depression Forest Fire Prevention Specialist Required: No Allergies tamsulosin Allergy (Unknown, Verified 07/22/24 09:48) dizziness, weakness Tobacco use date assessed: 07/22/24 Fall risk assessment: 2 + Falls in past year Last assessed Fall Risk: 07/22/24 Dental Screening Dental Screen Date: 07/22/24 Did you have a dental visit in the last 12 months?: No Did you have a dental problem in the last 6 months where you did not have access to dental care?: No Was dental information given to patient?: Patient has dentist HPI HPI Comments History of Present Illness Details 83-year-old male presents for hypertensi on, anxiety, and depression follow-up. He admits to taking his medications as prescribed without adverse reactions. He notes that his anxiety and depressive symptoms are generally well controlled. He reports he painless lump to the top of his scalp for several years. He declines ultrasound of the lump and notes that ?it does not bother me.? He offers no complaints and denies acute symptoms at this time. [facility] Medical History (Updated 07/22/24 @ 10:12 by George Spring CNP) BPH (benign prostatic hyperplasia) Elevated cholesterol Chronic renal insufficiency Atrial fibrillation Pre-diabetes Anxiety Depression Movement disorder Thrombocytopenia Cognitive changes Lumbar spinal stenosis Memory deficit Hypertension Erectile dysfunction Feeling of incomplete bladder emptying Post-void dribbling Weak urinary stream Nocturia Elevated PSA Surgical History Hx of inguinal hernia repair Hx of arthroscopy of right knee Hx of colonoscopy Family History Father Prostate cancer Social History Household Members: Friend(s) Housing: Apartment Are you a primary youth care professional to a significant other at home: No Do you presently have visiting nurse or other home services: No Alcohol intake: current Alcohol intake frequency: holidays/special occasions only Patient Tobacco Use Status: Former Tobacco user Tobacco use type: Cigarette Years Smoked: 20 e-Cigarette/Vaping Use: Never Used Second Hand Smoke Exposure: No service: No Current occupational status: retired Current occupational exposures/hazards: No Sexual orientation: Unable to collect Gender identity: Unable to collect Cognitive needs: No Hearing needs: Yes Vision needs: Yes Questionnaire PHQ-9 Over the last 2 weeks, how often have you been bothered by any of the following problems? 1. Little interest or pleasure in doing things: several days 2. Feeling down, depressed, or hopeless: not at all 3. Trouble falling or staying asleep, or sleeping too much: not at all 4. Feeling tired or having little energy: not at all 5. Poor appetite or overeating: not at all 6. Feeling bad about yourself - or that you are a failure or have let yourself or your family down: not at all 7. Trouble concentrating on things, such as reading the newspaper or watching television: not at all 8. Moving or speaking so slowly that other people could have noticed. Or the opposite - being so fidgety or restless that you have been moving around a lot more than usual: several days 9. Thoughts that you would be better off or of hurting yourself in some way: not at all Total score: 2 Depression Screening Interpretation: Negative Depression Screening Done: Yes 02527 - PHQ-9 Billing: Yes Source: Developed by Drs. Domo Mckinley, Cindi Mcfadden, Randy Sotelo and colleagues, with an educational petey from [employer]. Thrive Questionnaire Date Thrive assessed: 02/12/24 I am a: Patient What is your living situation today?: I have a steady place to live Within the past 12 months, did the food you bought not last and you didn't have the money to get more?: Never true Within the past 12 months, did you worry whether your food would run out before you got money to buy more?: Never true Do you have trouble paying for medicines?: No Do you have trouble getting transportation to medical appointments?: No Do you have trouble paying your heating and electricity bill?: No Do you have trouble taking care of your child, family member or friend?: No Do you have trouble with day-to-day activities such as bathing, preparing meals, shopping, managing finances, etc.?: No Are you currently unemployed and looking for a job?: No Are you interested in more education?: No Please select the resources that you would like help with: None Currently or been in a relationship where the following occur: No concerns reported THRIVE Score: 0 CORBIN-7 AMB Questionnaire CORBIN-7 Date CORBIN - 7 assessed: 07/22/24 Feeling nervous, anxious, or on edge: 1 = Several days Not being able to stop or control worryin = Not at all Worrying too much about different things: 0 = Not at all Trouble relaxin = Not at all Being so restless that it is hard to sit still: 0 = Not at all Becoming easily annoyed or irritable: 1 = Several days Feeling afraid as if something awful might happen: 0 = Not at all Total CORBIN-7 score (0-4 normal; 5-9 mild; 10-14 moderate; 15-21 severe): 2 Source: Developed by Drs. Domo Mckinley, Cindi Mcfadden, Randy Sotelo and colleagues, with an educational petey from [employer]. CORBIN-7 Assessment Billing CORBIN-7 Assessment Tool: CORBIN-7 Assessment 44088 Review of Systems Const Details: Const Denies chills, Denies fatigue, Denies fever(s), Denies headache(s) and Denies weakness ENT Reports as per HPI Card Denies chest pain, Denies lightheadedness, Denies dyspnea and Denies other (Palpitations) Resp Denies cough, Denies dyspnea, Denies wheezing and Denies other ( shortness of breath) GI Denies abdominal pain, Denies melena, Denies hematochezia, Denies change in bowel habits, Denies dyspepsia and Denies nausea Denies hematuria and Denies dysuria Musc Denies abnormal gait, Denies myalgias, Denies arthralgias, Denies numbness and Denies tingling Skin/Breast Denies rash, Denies unusual bruising and Denies wounds Neuro Denies abnormal gait, Denies dizziness, Denies headache(s), Denies memory loss, Denies numbness, Denies Sensory deficit (Neuro), Denies tingling and Denies weakness Psych Denies anxiety, Denies depression, Denies memory loss Endo Denies cold intolerance, Denies fatigue, Denies heat intolerance, Denies polydipsia and Denies polyuria Aller/Immun Denies wheezing Physical exam (Primary Care) Tobacco/Smoking Status: Tobacco use Status Tobacco use date assessed 04/18/24 07/22/24 09:47 Patient Tobacco Use Status Former Tobacco user 07/22/24 09:47 Tobacco use type Cigarette 07/22/24 09:47 e-Cigarette/Vaping Use Never Used 07/22/24 09:47 Depression Screening Interpretation: Negative Thrive Assessment: Date of Thrive Assessment Date Thrive assessed 02/12/24 07/22/24 09:47 Currently or been in a relationship where the following occur: No concerns reported Const Other: General: no acute distress and well developed Nutritional Appearance: well nourished Orientation/consciousness: patient oriented x3 HENMT Small, nontender, slightly soft lump to the scalp/frontal lobe, no overt injury/infection Eyes General: appearance normal, both eyes and all related structures Pupils: Equal, round and reactive pupils present EOM: EOMs intact bilaterally Resp Effort & Inspection: normal respiratory effort Auscultation: clear to auscultation bilaterally Cardio Rate: regular rate Rhythm: regular rhythm Heart sounds: S1 normal heart sound present, S2 normal heart sound present, no gallops, no murmurs and no rubs GI Palpation (GI): No Abdominal aortic bruit present, Soft to palpation, nontender, No hepatosplenomegaly present and No Rebound tenderness present Auscultation: normal bowel sounds General: Yes no CVA tenderness Back/Spine/Pelvis Back: no CVA tenderness Cervical Spine: cervical ROM normal and No Cervical spine tenderness Thoracic/Lumbar Spine: thoraco-lumbar ROM normal, No pain with thoraco-lumbar ROM, No thoracic spinal tenderness and No lumbar spinal tenderness Extrem General: Yes normal to inspection, No edema and No calf tenderness Skin General: warm and dry. Normal skin color. Normal skin turgor Neuro General: patient oriented x3, gait normal and no focal neuro deficit Cranial nerves: Yes Equal, round and reactive pupils present Cognition (Neuro): normal cognition Gait exam (Neuro): Normal gait present Sensory Exam: No Sensory deficit (Neuro) Psych Appearance: grossly normal Affect: normal affect Attitude: cooperative Thought process: Normal thought process present Coding Level of Care Code Est Pt Level 3 (34861) Diagnoses Primary hypertension I10 Hypertension type: primary hypertension Anxiety and depression F41.9; F32.A Lump of scalp R22.0 Additional Codes CORBIN-7 Assessment Billing - CORBIN-7 Assessment Tool: CORBIN-7 Assessment 18081 ([id number]) PHQ-9 - 04257 - PHQ-9 Billing: Yes ([id number]) Assessment & Plan Assessment & Plan (1) Hypertension: Code(s): I10 - Essential (primary) hypertension Category: Medical Qualifiers: Hypertension type: primary hypertension Qualified Code(s): I10 - Essential (primary) hypertension Plan: Resting blood pressure is 130/70, slightly above goal of less than 130/90. Continue current treatment regimen. Low-sodium diet encouraged. Follow-up in 3 months or sooner with symptoms or concerns. Verbalized understanding and agreed with the treatment plan. (2) Anxiety and depression: Code(s): F41.9 - Anxiety disorder, unspecified; F32.A - Depression, unspecified Category: Medical Plan: He notes that his anxiety and depressive symptoms are generally well controlled. PHQ-9 and CORBIN-7 scores are normal. Continue current treatment regimen. Healthy diet and routine exercise encouraged. Follow-up in 3 months or sooner with symptoms or concerns. Verbalized understanding and agreed with the treatment plan (3) Lump of scalp: Code(s): R22.0 - Localized swelling, mass and lump, head Category: Medical Plan: He reports he painless lump to the top of his scalp for several years. He declines ultrasound of the lump and notes that ?it does not bother me.? Small, nontender, slightly soft lump to the scalp/frontal lobe, no overt injury/infection. Declines imaging. Follow-up as needed. Verbalized understanding and agreed with the plan.
[2024-07-22 09:52] VITALS: BP 143/70; PULSE 61; RESP 16; TEMP 36.5; O2SAT 100; BMI 24.0
--- OUTSIDE RECORDS SUMMARY | 2024-07-22 10:13 | XMS_ITS | Clinical Summary ---
Author Organization [facility] Address [id number] [place] [phone] Care Team Providers Care Team Lead Name Role Phone Sergio Soni MD Primary Care Provider [phone]- [phone] Social History Tobacco Use Types Packs/Day Years [...] age to complete this topic Care Teams Team Lead Relationship Specialty Start Date End Date Sergio Soni MD [address] [place] [phone] PCP - General Internal Medicine 03/07/21
[2024-07-22 10:14] VITALS: BP 130/70
== END 2024-07-22 10:11 | disposition home or self-care (01) ==
LOC: HO.HMCFM 09:43
PROVIDERS: PCP Nurse Practitioner Family; Visit Provider Nurse Practitioner Family
DX: I10 Essential (primary) hypertension (principal); F41.9 Anxiety disorder, unspecified; F32.A Depression, unspecified; R22.0 Localized swelling, mass and lump, head

== ENCOUNTER → 2024-07-22 09:42 | Outpatient (BNVA) | payer OTHER, SELFPAY | PROVIDERS: PCP Nurse Practitioner Family; Visit Provider Nurse Practitioner Family | DX: I10 Essential (primary) hypertension (principal); F32.A Depression, unspecified; F41.9 Anxiety disorder, unspecified; R22.0 Localized swelling, mass and lump, head | CPT/HCPCS: 96127 ==

== ENCOUNTER 2024-08-24 08:42 | Outpatient (AMB) | payer OTHER, SELFPAY ==
[2024-08-24 08:47] VITALS: BP 160/80; PULSE 72; O2SAT 95; BMI 23.3
--- NOTE | 2024-08-24 08:47 | MHC.OFFVIS ---
Vital Signs 08/24/24 08:47 Height 5 ft 8 in Weight 153 lb BMI 23.3 BP 160/80 H Pulse 72 Pulse Source Pulse Oximeter Pulse Oximetry (%) 95 Oxygen Delivery Method Room Air Intake Visit Reasons: 3 mo follow up Intake Note: patient following up on MRI done 02/05/24 labs 02/02/24.patient did not book PT. 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 Accompanied by: Spouse Allergies tamsulosin Allergy (Unknown, Verified 08/24/24 08:48) dizziness, weakness Medication List - Last Reconciled 08/24/24 by Makayla Coleman MD amlodipine 10 mg PO DAILY 90 days apixaban (Eliquis) 5 mg PO BID atenolol 50 mg PO DAILY atorvastatin 80 mg PO DAILY 90 days buspirone 10 mg PO BID 90 days cetirizine (Zyrtec) 10 mg PO DAILY 30 days cholecalciferol (vitamin D3) 50 mcg PO DAILY 90 days donepezil 10 mg PO DAILY 30 days irbesartan 300 mg PO DAILY miscellaneous medical supply 1 cane for ambulation alonyorysfqs-thbf-wupah acid 18-400 mg-mcg (Centrum Complete) 1 tab PO DAILY psyllium husk (Metamucil) 1 tbsp PO BID 30 days sertraline 100 mg PO DAILY HPI Comments Details: 84y/o Right handed male comes for follow up of shuffling gait and memory issues. His mRI did not show ventricular enlargement He did not do PT or Cognitive therapy Vit B 12 is low normal H eha d1 fall when he was trying to get to the bathroom at night. History from -He reports worsening of his gait and balance about 10 mths ago . He feels that his balance is poor and he shuffles. He had 1 fall 2 weeks ago when he was rushing to his car and was not using his cane. He denies neck pain or back pain.He has on and off dizziness - lightheadedness when he does some strenuous activity. He use dto be very active- was a runner when young. He reports increased frequency urgency and some incontinence. He noticed short term memory issues about 1 year ago and gradually worsening. He has trouble remembering conversations, activities, misplaces things,forgets dates etc.He denies executive dysfunction.He manages his own finances . He lives with a friend now. No h/o head injury . 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 He has h/o anxiety . He reports vivid dreams and night terrors every night. His speech is softer . No tremors. He has difficulty with fine finger movements in antoinette Hands. Bowel movements - better with metamucil. [facility] Medical History (Updated 08/24/24 @ 09:10 by Makayla Coleman MD) BPH (benign prostatic hyperplasia) Elevated cholesterol Chronic renal insufficiency Atrial fibrillation Pre-diabetes Anxiety Depression Movement disorder Thrombocytopenia Cognitive changes Lumbar spinal stenosis Memory deficit Hypertension Erectile dysfunction Feeling of incomplete bladder emptying Post-void dribbling Weak urinary stream Nocturia Elevated PSA Surgical History Hx of inguinal hernia repair Hx of arthroscopy of right knee Hx of colonoscopy Family History Father Prostate cancer Social History Household Members: Friend(s) Housing: Apartment Are you a primary daycare teacher to a significant other at home: No Do you presently have visiting nurse or other home services: No Alcohol intake: current Alcohol intake frequency: holidays/special occasions only Patient Tobacco Use Status: Former Tobacco user Tobacco use type: Cigarette Years Smoked: 20 e-Cigarette/Vaping Use: Never Used Second Hand Smoke Exposure: No service: No Current occupational status: retired Current occupational exposures/hazards: No Sexual orientation: Unable to collect Gender identity: Unable to collect Cognitive needs: No Hearing needs: Yes Vision needs: Yes Physical Exam Vital Signs: Last Vital Signs Pulse 72 08/24/24 08:47 BP 160/80 H 08/24/24 08:47 Pulse Ox 95 08/24/24 08:47 Oxygen Delivery Method Room Air 08/24/24 08:47 BMI result Body Mass Index 23.3 Assessment & Plan Assessment & Plan (1) Shuffling gait: Comment: ? parkinsons ? 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
--- OUTSIDE RECORDS SUMMARY | 2024-08-24 08:49 | XMS_ITS | Clinical Summary ---
Author Organization [facility] Address [id number] [place] [phone] Care Team Providers Care Prosthodontist/Owner Name Role Phone Sergio Soni MD Primary Care Provider [phone] Social History Tobacco Use Types Packs/Day Years [...] Vaccine (2023-2 5 season) 2023 Influenza Vaccine (#1) 2024 HIB Vaccines Aged Out No longer [...] age to complete this topic Care Teams Prosthodontist/Owner Relationship Specialty Start Date End Date Sergio Soni MD [address] [place] [phone] PCP - General Internal Medicine 03/07/21
--- OUTSIDE RECORDS SUMMARY | 2024-08-24 08:49 | XMS_ITS | Clinical Summary ---
Author Organization [facility] Address [address] [place] [address] Phone Care Team Providers Care Briefcase Sewer Name Role Phone George Spring CNP Primary Care Provider [phone] Allergies Active Allergy Reactions Criticality Noted Date [...] of 2 - PCV) 05/13/1959 Influenza Vaccine (#1) 2024 Hepatitis B Vaccine Aged Out 12/15/2000, 07/03/2000, 06/05/2000 No longer eligible based on patient's age to complete this topic Insurance [employer] Care Teams Briefcase Sewer Relationship Specialty Start Date End Date George Spring CNP [address] [place] [address] PCP - General 04/09/22
== END 2024-08-24 09:21 | disposition home or self-care (01) ==
LOC: HO.HSMS 08:42
PROVIDERS: PCP Nurse Practitioner Family; Visit Provider Psychiatry & Neurology Neurology
DX: R26.89 Other abnormalities of gait and mobility (principal); R41.89 Other symptoms and signs involving cognitive functions and awareness
CPT/HCPCS: 99214

== ENCOUNTER 2024-09-07 09:08 | Outpatient (AMB) | payer OTHER, SELFPAY ==
[2024-09-07 09:24] VITALS: BP 128/78; PULSE 74; BMI 23.1
--- NOTE | 2024-09-07 09:24 | A.OFFVIS_ITS ---
Vital Signs 09/07/24 09:24 Height 5 ft 8 in Weight 152 lb 1.903 oz BMI 23.1 BP 128/78 Blood Pressure Location Lt brachial Position Sitting Pulse 74 Pulse Source Pulse Oximeter Intake Visit Reasons: 1 yr f/up Allergies tamsulosin Allergy (Unknown, Verified 08/24/24 08:48) dizziness, weakness Medication List - Last Reconciled 09/07/24 by Juan Arteaga MD amlodipine 10 mg PO DAILY 90 days apixaban (Eliquis) 5 mg PO BID atenolol 50 mg PO DAILY atorvastatin 80 mg PO DAILY 90 days buspirone 10 mg PO BID 90 days cetirizine (Zyrtec) 10 mg PO DAILY 30 days cholecalciferol (vitamin D3) 50 mcg PO DAILY 90 days donepezil 10 mg PO DAILY 30 days irbesartan 300 mg PO DAILY miscellaneous medical supply 1 cane for ambulation ccjfwvbgftvt-bogh-yabci acid 18-400 mg-mcg (Centrum Complete) 1 tab PO DAILY psyllium husk (Metamucil) 1 tbsp PO BID 30 days sertraline 100 mg PO DAILY HPI Comments Details: Akil returns for follow-up regarding atrial fibrillation. He has no clear-cut cardiac symptoms like angina or shortness of breath or palpitations extra. Lots of memory issues and apparently forgets a lot of things. Otherwise, complaints of nonspecific fatigue. In the past, metoprolol was switched to atenolol for this reason. [facility] Medical History (Updated 08/24/24 @ 09:10 by Makayla Coleman MD) BPH (benign prostatic hyperplasia) Elevated cholesterol Chronic renal insufficiency Atrial fibrillation Pre-diabetes Anxiety Depression Movement disorder Thrombocytopenia Cognitive changes Lumbar spinal stenosis Memory deficit Hypertension Erectile dysfunction Feeling of incomplete bladder emptying Post-void dribbling Weak urinary stream Nocturia Elevated PSA Surgical History Hx of inguinal hernia repair Hx of arthroscopy of right knee Hx of colonoscopy Family History Father Prostate cancer Social History Household Members: Friend(s) Housing: Apartment Are you a primary assisted living care manager to a significant other at home: No Do you presently have visiting nurse or other home services: No Alcohol intake: current Alcohol intake frequency: holidays/special occasions only Patient Tobacco Use Status: Former Tobacco user Tobacco use type: Cigarette Years Smoked: 20 e-Cigarette/Vaping Use: Never Used Second Hand Smoke Exposure: No service: No Current occupational status: retired Current occupational exposures/hazards: No Sexual orientation: Unable to collect Gender identity: Unable to collect Cognitive needs: No Hearing needs: Yes Vision needs: Yes Review of Systems Const Denies weakness ENT Denies dizziness Card Denies chest pain, Denies chest pain with activity, Denies syncope, Denies rapid heart rate, Denies pedal edema, Denies edema, Denies leg edema, Denies lighth eadedness, Denies palpitations, Denies dyspnea, Denies dyspnea on exertion and Denies orthopnea Resp Denies cough, Denies dyspnea and Denies dyspnea on exertion GI Denies hematochezia and Denies change in stool character Musc Denies abnormal gait, Denies muscle cramps, Denies muscle weakness, Denies numbness, Denies radiating pain into limb and Denies tingling Neuro Denies abnormal gait, Denies dizziness, Denies syncope, Denies numbness, Denies tingling and Denies weakness Endo Denies palpitations Physical Exam Vital Signs: Last Vital Signs Pulse 74 09/07/24 09:24 BP 128/78 09/07/24 09:24 BMI result Body Mass Index 23.1 Const General: comfortable and no acute distress Orientation/consciousness: patient oriented x3 HEENT Other: Unremarkable Head: Yes normal to inspection Neck Neck: Yes normal visual inspection Chest Chest palpation & inspection: normal inspection of the chest Resp Auscultation: clear to auscultation bilaterally Cardio Palpation: normal PMI Heart sounds: S1 normal heart sound present, S2 normal heart sound present, no gallops, no murmurs and no rubs GI Palpation (GI): Soft to palpation Back/Spine/Pelvis Other: unremarkable Skin General skin exam: no rashes or lesions noted Neuro General: patient oriented x3 Extrem General: Yes normal to inspection Psych Mental Status: mental status grossly normal Assessment & Plan Assessment & Plan (1) Persistent atrial fibrillation: Code(s): I48.19 - Other persistent atrial fibrillation Category: Medical (2) Hypertension: Code(s): I10 - Essential (primary) hypertension Category: Medical Qualifiers: Hypertension type: primary hypertension Qualified Code(s): I10 - Essential (primary) hypertension (3) Anticoagulation management encounter: Code(s): Z51.81 - Encounter for therapeutic drug level monitoring; Z79.01 - 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 Per [facility] [place], echocardiogram was done at [facility] and that showed preserved LVEF, no wall motion abnormalities, no valvular issues or other concerns. Myocardial perfusion imaging study from [facility], 2021 showed inferior perfusion defect thought to be from either diaphragmatic attenuation; could not exclude small area of ischemia. In the last Holter, underlying rhythm is atrial fibrillation with an average rate of 51/Min. Well controlled. Last EKG from April 2024-atrial fibrillation at a rate of 72/Min. Overall, well controlled atrial fibrillation on beta-blockers. On anticoagulation without any issues. May continue the same. For hypertension, on amlodipine and irbesartan. That is seems stable. No further changes otherwise. Discussion Notes I discussed with the patient and his caregiver the importance of monitoring for any significant changes in memory and fatigue. We reviewed the management of atrial fibrillation, emphasizing the need for medication adherence to prevent stroke. I advised that regular follow-up appointments are essential to monitor the patient's condition and make necessary adjustments to the treatment plan. Patient was informed and verbally consented to the use of an ambient scribe for clinic note documentation during this visit. Patient Instructions: - Monitor for any significant changes in memory or fatigue. - Continue taking prescribed medications as directed. - Pace activities and rest as needed to manage fatigue. - Attend regular follow-up appointments to monitor health status. Coding Level of Care Code Est Pt Level 4 (17724) Complex EM visit Add On G2211 Diagnoses Persistent atrial fibrillation I48.19 Primary hypertension I10 Hypertension type: primary hypertension Anticoagulation management encounter Z51.81; Z79.01
--- OUTSIDE RECORDS SUMMARY | 2024-09-07 09:37 | XMS_ITS | Clinical Summary ---
Author Organization [facility] [[email or web address]] Address [address] [place] [phone] Care Team Providers Care Glass Beveller Name Role Phone Sergio Soni MD Primary Care Provider [phone] Social History Tobacco Use Types Packs/Day Years [...] 05/13/2014 COVID-19 Vaccine (2023-2 5 season) 2023 Depression Screening 02/10/2024 Influenza Vaccine (#1) 2024 HIB Vaccines Aged [...] age to complete this topic Care Teams Glass Beveller Relationship Specialty Start Date End Date Sergio Soni MD [address] [place] [phone] PCP - General Internal Medicine 03/07/21
--- OUTSIDE RECORDS SUMMARY | 2024-09-07 09:37 | XMS_ITS | Clinical Summary ---
Author Organization [facility] Address [address] [place] [address] Phone Care Team Providers Care Assistant Engineer Name Role Phone George Spring CNP Primary Care Provider [phone] Allergies Active Allergy Reactions Criticality Noted Date [...] complete this topic Insurance [employer] Care Teams Assistant Engineer Relationship Specialty Start Date End Date George Spring CNP [address] [place] [address] PCP - General 04/09/22
== END 2024-09-07 09:52 | disposition home or self-care (01) ==
LOC: HO.HCS 09:09
PROVIDERS: PCP Nurse Practitioner Family; Visit Provider Internal Medicine
DX: I48.19 Other persistent atrial fibrillation (principal); I10 Essential (primary) hypertension; Z51.81 Encounter for therapeutic drug level monitoring; Z79.01 Long term (current) use of anticoagulants
CPT/HCPCS: 99214

== ENCOUNTER 2024-10-25 09:38 | Outpatient (AMB) | payer OTHER, SELFPAY ==
--- NOTE | 2024-10-25 09:45 | A.OFFPC_ITS ---
Vital Signs 10/25/24 09:52 Height 5 ft 8 in Weight 155 lb 6 oz BMI 23.6 BP 120/76 Blood Pressure Location Rt brachial Position Sitting Respiration 16 Pulse 73 Pulse Source Pulse Oximeter Temp 98.2 F Temp Source Oral Pulse Oximetry (%) 100 Oxygen Delivery Method Room Air Intake Visit Reasons: 3 mos HTN, anxiety, depression Intake Note: patient here for 3 month follow up on HTN, anxiety and depression [employer] Required: No Allergies tamsulosin Allergy (Unknown, Verified 10/25/24 10:17) dizziness, weakness Medication List - Last Reconciled 10/25/24 by George Spring CNP amlodipine 10 mg PO DAILY 90 days apixaban (Eliquis) 5 mg PO BID atenolol 50 mg PO DAILY atorvastatin 80 mg PO DAILY 90 days buspirone 10 mg PO BID 90 days cetirizine (Zyrtec) 10 mg PO DAILY 30 days cholecalciferol (vitamin D3) 50 mcg PO DAILY 90 days donepezil 10 mg PO DAILY 30 days irbesartan 300 mg PO DAILY miscellaneous medical supply 1 cane for ambulation jkohbeqgkisp-omyf-ntbki acid 18-400 mg-mcg (Centrum Complete) 1 tab PO DAILY psyllium husk (Metamucil) 1 tbsp PO BID 30 days sertraline 100 mg PO DAILY Tobacco use date assessed: 10/25/24 Fall risk assessment: 2 + Falls in past year Last assessed Fall Risk: 10/25/24 Dental Screening Dental Screen Date: 10/25/24 Did you have a dental visit in the last 12 months?: Yes Did you have a dental problem in the last 6 months where you did not have access to dental care?: No Was dental information given to patient?: Patient has dentist HPI HPI Comments History of Present Illness Details 84-year-old male presents for hypertensi on, anxiety, and depression follow-up. He admits to taking his medications as prescribed without adverse reactions. He notes that he is anxious all the time. He gets aggravated at everything. He denies depression. He notes that he is very forgetful and that has been happening daily and all day. He almost forgot how to drive to this appointment. He no longer drives much, drives only when necessary. His symtoms have progressively worsened. [facility] Medical History (Updated 08/24/24 @ 09:10 by Makayla Coleman MD) BPH (benign prostatic hyperplasia) Elevated cholesterol Chronic renal insufficiency Atrial fibrillation Pre-diabetes Anxiety Depression Movement disorder Thrombocytopenia Cognitive changes Lumbar spinal stenosis Memory deficit Hypertension Erectile dysfunction Feeling of incomplete bladder emptying Post-void dribbling Weak urinary stream Nocturia Elevated PSA Surgical History Hx of inguinal hernia repair Hx of arthroscopy of right knee Hx of colonoscopy Family History Father Prostate cancer Social History Household Members: Friend(s) Housing: Apartment Are you a primary medical care administrator to a significant other at home: No Do you presently have visiting nurse or other home services: No Alcohol intake: current Alcohol intake frequency: holidays/special occasions only Patient Tobacco Use Status: Former Tobacco user Tobacco use type: Cigarette Years Smoked: 20 e-Cigarette/Vaping Use: Never Used Second Hand Smoke Exposure: No service: No Current occupational status: retired Current occupational exposures/hazards: No Sexual orientation: Unable to collect Gender identity: Unable to collect Cognitive needs: No Hearing needs: Yes Vision needs: Yes Questionnaire PHQ-9 Over the last 2 weeks, how often have you been bothered by any of the following problems? 1. Little interest or pleasure in doing things: several days 2. Feeling down, depressed, or hopeless: not at all 3. Trouble falling or staying asleep, or sleeping too much: not at all 4. Feeling tired or having little energy: several days 5. Poor appetite or overeating: not at all 6. Feeling bad about yourself - or that you are a failure or have let yourself or your family down: not at all 7. Trouble concentrating on things, such as reading the newspaper or watching television: not at all 8. Moving or speaking so slowly that other people could have noticed. Or the opposite - being so fidgety or restless that you have been moving around a lot more than usual: several days 9. Thoughts that you would be better off or of hurting yourself in some way: not at all Total score: 3 Depression Screening Interpretation: Negative Depression Screening Done: Yes 79371 - PHQ-9 Billing: Yes Source: Developed by Drs. Domo Mckinley, Cindi Mcfadden, Randy Sotelo and colleagues, with an educational petey from [employer]. Thrive Questionnaire Date Thrive assessed: 02/12/24 I am a: Patient What is your living situation today?: I have a steady place to live Within the past 12 months, did the food you bought not last and you didn't have the money to get more?: Never true Within the past 12 months, did you worry whether your food would run out before you got money to buy more?: Never true Do you have trouble paying for medicines?: No Do you have trouble getting transportation to medical appointments?: No Do you have trouble paying your heating and electricity bill?: No Do you have trouble taking care of your child, family member or friend?: No Do you have trouble with day-to-day activities such as bathing, preparing meals, shopping, managing finances, etc.?: No Are you currently unemployed and looking for a job?: No Are you interested in more education?: No Please select the resources that you would like help with: None Currently or been in a relationship where the following occur: No concerns reported THRIVE Score: 0 CORBIN-7 AMB Questionnaire CORBIN-7 Date CORBIN - 7 assessed: 10/25/24 Feeling nervous, anxious, or on edge: 1 = Several days Not being able to stop or control worryin = Not at all Worrying too much about different things: 0 = Not at all Trouble relaxin = Not at all Being so restless that it is hard to sit still: 0 = Not at all Becoming easily annoyed or irritable: 1 = Several days Feeling afraid as if something awful might happen: 0 = Not at all Total CORBIN-7 score (0-4 normal; 5-9 mild; 10-14 moderate; 15-21 severe): 2 Source: Developed by Drs. Domo Mckinley, Cindi Mcfadden, Randy Sotelo and colleagues, with an educational petey from [employer]. CORBIN-7 Assessment Billing CORBIN-7 Assessment Tool: CORBIN-7 Assessment 11905 Review of Systems Const Details: Const Denies chills, Denies fatigue, Denies fever(s), Denies headache(s) and Denies weakness ENT Denies dizziness and Denies headache(s) Card Denies chest pain, Denies lightheadedness, Denies dyspnea and Denies other (Palpitations) Resp Denies cough, Denies dyspnea, Denies wheezing and Denies other ( shortness of breath) GI Denies abdominal pain, Denies melena, Denies hematochezia, Denies change in blayne wel habits, Denies dyspepsia and Denies nausea Denies hematuria and Denies dysuria Musc Denies abnormal gait, Denies myalgias, Denies arthralgias, Denies numbness and Denies tingling Skin/Breast Denies rash, Denies unusual bruising and Denies wounds Neuro Denies abnormal gait, Denies dizziness, Denies headache(s), Reports memory loss, Denies numbness, Denies Sensory deficit (Neuro), Denies tingling and Denies weakness Psych Reports anxiety, Denies depression, Reports memory loss Endo Denies cold intolerance, Denies fatigue, Denies heat intolerance, Denies polydipsia and Denies polyuria Aller/Immun Denies wheezing Physical exam (Primary Care) Vital Signs: Last Vital Signs Temp 98.2 F 10/25/24 09:52 Pulse 73 10/25/24 09:52 Resp 16 10/25/24 09:52 BP 120/76 10/25/24 09:52 Pulse Ox 100 10/25/24 09:52 Oxygen Delivery Method Room Air 10/25/24 09:52 BMI result Body Mass Index 23.6 Tobacco/Smoking Status: Tobacco use Status Tobacco use date assessed 10/25/24 10/25/24 09:57 Patient Tobacco Use Status Former Tobacco user 10/25/24 09:47 Tobacco use type Cigarette 10/25/24 09:47 e-Cigarette/Vaping Use Never Used 10/25/24 09:47 PHQ-9: PHQ-9 Score PHQ-9: Total score 3 10/25/24 10:20 Depression Screening Interpretation: Negative Thrive Assessment: Date of Thrive Assessment Date Thrive assessed 02/12/24 10/25/24 09:47 Currently or been in a relationship where the following occur: No concerns reported Const Other: General: no acute distress and well developed Nutritional Appearance: well nourished Orientation/consciousness: patient oriented x3 HENMT Head: Yes normocephalic and Yes atraumatic Eyes General: appearance normal, both eyes and all related structures Pupils: Equal, round and reactive pupils present EOM: EOMs intact bilaterally Resp Effort & Inspection: normal respiratory effort Auscultation: clear to auscultation bilaterally Cardio Rate: regular rate Rhythm: regular rhythm Heart sounds: S1 normal heart sound present, S2 normal heart sound present, no gallops, no murmurs and no rubs GI Palpation (GI): No Abdominal aortic bruit present, Soft to palpation, nontender, No hepatosplenomegaly present and No Rebound tenderness present Auscultation: normal bowel sounds General: Yes no CVA tenderness Back/Spine/Pelvis Back: no CVA tenderness Cervical Spine: cervical ROM normal and No Cervical spine tenderness Thoracic/Lumbar Spine: thoraco-lumbar ROM normal, No pain with thoraco-lumbar ROM, No thoracic spinal tenderness and No lumbar spinal tenderness Extrem General: Yes normal to inspection, No edema and No calf tenderness Skin General: warm and dry. Normal skin color. Normal skin turgor Neuro General: patient oriented x3, gait normal and no focal neuro deficit Cranial nerves: Yes Equal, round and reactive pupils present Cognition (Neuro): normal cognition Gait exam (Neuro): Normal gait present Sensory Exam: No Sensory deficit (Neuro) Psych Appearance: grossly normal Affect: normal affect Attitude: pleasant, calm and cooperative Thought process: Normal thought process present Coding Level of Care Code Est Pt Level 4 (44711) Complex EM visit Add On G2211 Diagnoses Primary hypertension I10 Hypertension type: primary hypertension Anxiety and depression F41.9; F32.A Dementia F03.90 Additional Codes CORBIN-7 Assessment Billing - CORBIN-7 Assessment Tool: CORBIN-7 Assessment 46489 ([id number]) PHQ-9 - 78424 - PHQ-9 Billing: Yes ([id number]) Assessment & Plan Assessment & Plan (1) Hypertension: Code(s): I10 - Essential (primary) hypertension Category: Medical Qualifiers: Hypertension type: primary hypertension Qualified Code(s): I10 - Essential (primary) hypertension Plan: Blood pressure is 120/76, within goal of less than 140/90. Continue current treatment regimen. Low-sodium diet encouraged. Will continue to monitor. Verbalized understanding and agreed with the plan. (2) Anxiety and depression: Code(s): F41.9 - Anxiety disorder, unspecified; F32.A - Depression, unspecified Category: Medical Plan: He is anxious all the time. He gets aggravated at everything. He denies depression. He is very forgetful and that has been happening daily and all day. He almost forgot how to drive to this appointment. He no longer drives much, drives only when necessary. His symtoms have progressively worsened. PHQ-9 and CORBIN-7 scores are normal. Donepezil increased to 23 mg daily at bedtime; advised to take as prescribed. Ativan 0.5 mg twice daily ordered; advised to take as prescribed. Instructed on the risks, benefits, and potential adverse reactions of the medication. Routine exercise encouraged. Instructed on safety and to avoid driving if confused. Follow-up in 1 month or sooner with symptoms or concerns. Verbalized understanding and agreed with the treatment plan. (3) Dementia: Code(s): F03.90 - Unspecified dementia, unspecified severity, without behavioral disturbance, psychotic disturbance, mood disturbance, and anxiety Category: Medical Plan: Plan as above. Medications: New lorazepam (Ativan) 0.5 mg PO BID PRN 20 tabs 0RF anxiety donepezil 23 mg PO BEDTIME 90 tabs 1RF 90 days Discontinued donepezil Discontinued Reason: Change Referral Type 10 mg PO DAILY 30 days 30 tabs 3RF
[2024-10-25 09:52] VITALS: BP 120/76; PULSE 73; RESP 16; TEMP 36.8; O2SAT 100; BMI 23.6
--- OUTSIDE RECORDS SUMMARY | 2024-10-25 12:17 | XMS_ITS | Clinical Summary ---
Author Organization [facility] Address [address] [place] [address] Phone Care Team Providers Care Help Desk Agent Name Role Phone George Spring CNP Primary Care Provider [phone] Allergies Active Allergy Reactions Criticality Noted Date [...] complete this topic Insurance [employer] Care Teams Help Desk Agent Relationship Specialty Start Date End Date George Spring CNP [address] [place] [id number] PCP - General 04/09/22
== END 2024-10-25 10:39 | disposition home or self-care (01) ==
LOC: HO.HMCFM 09:39
PROVIDERS: PCP Nurse Practitioner Family; Visit Provider Nurse Practitioner Family
DX: I10 Essential (primary) hypertension (principal); F41.9 Anxiety disorder, unspecified; F32.A Depression, unspecified; F03.90 Unspecified dementia, unspecified severity, without behavioral disturbance, psychotic disturbance, mood disturbance, and anxiety

== ENCOUNTER → 2024-10-25 09:38 | Outpatient (BNVA) | payer OTHER, SELFPAY | PROVIDERS: PCP Nurse Practitioner Family; Visit Provider Nurse Practitioner Family | DX: I10 Essential (primary) hypertension (principal); F41.9 Anxiety disorder, unspecified; F32.A Depression, unspecified; F03.90 Unspecified dementia, unspecified severity, without behavioral disturbance, psychotic disturbance, mood disturbance, and anxiety | CPT/HCPCS: 96127 ==

== ENCOUNTER 2024-11-29 08:16 | Outpatient (AMB) | payer OTHER, SELFPAY ==
--- NOTE | 2024-11-29 08:22 | A.OFFPC_ITS ---
Vital Signs 11/29/24 08:28 Height 5 ft 8 in Weight 154 lb 2 oz BMI 23.4 BP 110/61 Blood Pressure Location Lt brachial Position Sitting Respiration 16 Pulse 54 Pulse Source Pulse Oximeter Temp 97.7 F Temp Source Temporal Artery Scan Pulse Oximetry (%) 99 Oxygen Delivery Method Room Air Intake Visit Reasons: 1 mos anxiety, depression, dementia Intake Note: patient here for 1 month anxiety, depression and dementia Engineering Team Supervisor Required: No Accompanied by: Other Relationship Allergies tamsulosin Allergy (Unknown, Verified 11/29/24 08:43) dizziness, weakness Medication List - Last Reconciled 11/29/24 by George Spring CNP amlodipine 10 mg PO DAILY 90 days apixaban (Eliquis) 5 mg PO BID atenolol 50 mg PO DAILY atorvastatin 80 mg PO DAILY 90 days buspirone 10 mg PO BID 90 days cetirizine (Zyrtec) 10 mg PO DAILY 30 days cholecalciferol (vitamin D3) 50 mcg PO DAILY 90 days donepezil 23 mg PO BEDTIME 90 days irbesartan 300 mg PO DAILY lorazepam (Ativan) 0.5 mg PO BID PRN miscellaneous medical supply 1 cane for ambulation hvctscyegduf-wryu-gxiwk acid 18-400 mg-mcg (Centrum Complete) 1 tab PO DAILY psyllium husk (Metamucil) 1 tbsp PO BID 30 days sertraline 100 mg PO DAILY Tobacco use date assessed: 11/29/24 Fall risk assessment: 2 + Falls in past year Last assessed Fall Risk: 11/29/24 Dental Screening Dental Screen Date: 11/29/24 Did you have a dental visit in the last 12 months?: Yes Did you have a dental problem in the last 6 months where you did not have access to dental care?: No Was dental information given to patient?: Patient has dentist HPI HPI Comments History of Present Illness Details 84-year-old male, accompanied by is aged or disabled carer, presents for anxiety, de pression, and dementia follow-up. He admits to taking his medications as prescribed without adverse reactions. He notes that I can't remember anything and feels frustrated when he cannot remember or do things. He reports intermittent tremors of both arms. According his caregiver, patient does not remember to take his medications; His caregiver has been helping with his medication regimen. His caregiver also notes that the patient's sleep is poor at night and is tired throughout the day. Also, his food intake has been poor. Patient's caregiver requests care home for medication management/administration. [facility] Medical History (Updated 08/24/24 @ 09:10 by Makayla Coleman MD) BPH (benign prostatic hyperplasia) Elevated cholesterol Chronic renal insufficiency Atrial fibrillation Pre-diabetes Anxiety Depression Movement disorder Thrombocytopenia Cognitive changes Lumbar spinal stenosis Memory deficit Hypertension Erectile dysfunction Feeling of incomplete bladder emptying Post-void dribbling Weak urinary stream Nocturia Elevated PSA Surgical History Hx of inguinal hernia repair Hx of arthroscopy of right knee Hx of colonoscopy Family History Father Prostate cancer Social History Household Members: Friend(s) Housing: Apartment Are you a primary aged or disabled carer to a significant other at home: No Do you presently have visiting nurse or other home services: No Alcohol intake: current Alcohol intake frequency: holidays/special occasions only Patient Tobacco Use Status: Former Tobacco user Tobacco use type: Cigarette Years Smoked: 20 e-Cigarette/Vaping Use: Never Used Second Hand Smoke Exposure: No service: No Current occupational status: retired Current occupational exposures/hazards: No Sexual orientation: Unable to collect Gender identity: Unable to collect Cognitive needs: Yes (pt uses a cane) Hearing needs: Yes Vision needs: Yes Questionnaire PHQ-9 Over the last 2 weeks, how often have you been bothered by any of the following problems? 1. Little interest or pleasure in doing things: several days 2. Feeling down, depressed, or hopeless: nearly every day 3. Trouble falling or staying asleep, or sleeping too much: nearly every day 4. Feeling tired or having little energy: nearly every day 5. Poor appetite or overeating: nearly every day 6. Feeling bad about yourself - or that you are a failure or have let yourself or your family down: more than half the days 7. Trouble concentrating on things, such as reading the newspaper or watching television: several days 8. Moving or speaking so slowly that other people could have noticed. Or the opposite - being so fidgety or restless that you have been moving around a lot more than usual: nearly every day 9. Thoughts that you would be better off or of hurting yourself in some way: not at all Total score: 19 Depression Screening Interpretation: Positive Depression Screening Follow-up: Existing condition and In treatment Depression Screening Done: Yes 19200 - PHQ-9 Billing: Yes Source: Developed by Drs. Domo Mckinley, Cindi Mcfadden, Randy Sotelo and colleagues, with an educational petey from [employer]. Thrive Questionnaire Date Thrive assessed: 02/12/24 I am a: Patient What is your living situation today?: I have a steady place to live Within the past 12 months, did the food you bought not last and you didn't have the money to get more?: Never true Within the past 12 months, did you worry whether your food would run out before you got money to buy more?: Never true Do you have trouble paying for medicines?: No Do you have trouble getting transportation to medical appointments?: No Do you have trouble paying your heating and electricity bill?: No Do you have trouble taking care of your child, family member or friend?: No Do you have trouble with day-to-day activities such as bathing, preparing meals, shopping, managing finances, etc.?: No Are you currently unemployed and looking for a job?: No Are you interested in more education?: No Please select the resources that you would like help with: None Currently or been in a relationship where the following occur: No concerns reported THRIVE Score: 0 CORBIN-7 AMB Questionnaire CORBIN-7 Date CORBIN - 7 assessed: 11/29/24 Feeling nervous, anxious, or on edge: 3 = Nearly every day Not being able to stop or control worryin = Nearly every day Worrying too much about different things: 3 = Nearly every day Trouble relaxin = Nearly every day Being so restless that it is hard to sit still: 3 = Nearly every day Becoming easily annoyed or irritable: 3 = Nearly every day Feeling afraid as if something awful might happen: 0 = Not at all Total CORBIN-7 score (0-4 normal; 5-9 mild; 10-14 moderate; 15-21 severe): 18 Source: Developed by Cindi Anne.W. Bogdan, Randy Sotelo and colleagues, with an educational petey from [employer]. CORBIN-7 Assessment Billing CORBIN-7 Assessment Tool: CORBIN-7 Assessment 88902 Review of Systems Const Details: Const Denies chills, Denies fatigue, Denies fever(s), Denies headache(s) and Denies weakness ENT Denies dizziness and Denies headache(s) Card Denies chest pain, Denies lightheadedness, Denies dyspnea and Denies other (Palpitations) Resp Denies cough, Denies dyspnea, Denies wheezing and Denies other ( shortness of breath) GI Denies abdominal pain, Denies melena, Denies hematochezia, Denies change in bowel habits, Denies dyspepsia and Denies nausea Denies hematuria and Denies dysuria Musc Denies abnormal gait, Denies myalgias, Denies arthralgias, Denies numbness and Denies tingling Skin/Breast Denies rash, Denies unusual bruising and Denies wounds Neuro Denies abnormal gait, Denies dizziness, Denies headache(s), Reports memory loss, Denies numbness, Denies Sensory deficit (Neuro), Denies tingling and Denies weakness Psych Denies anxiety, Denies depression, Reports memory loss Endo Denies cold intolerance, Denies fatigue, Denies heat intolerance, Denies polydipsia and Denies polyuria Aller/Immun Denies wheezing Physical exam (Primary Care) Vital Signs: Last Vital Signs Temp 97.7 F 11/29/24 08:28 Pulse 54 11/29/24 08:28 Resp 16 11/29/24 08:28 BP 110/61 11/29/24 08:28 Pulse Ox 99 11/29/24 08:28 Oxygen Delivery Method Room Air 11/29/24 08:28 BMI result Body Mass Index 23.4 Tobacco/Smoking Status: Tobacco use Status Tobacco use date assessed 11/29/24 11/29/24 08:35 Patient Tobacco Use Status Former Tobacco user 11/29/24 08:24 Tobacco use type Cigarette 11/29/24 08:24 e-Cigarette/Vaping Use Never Used 11/29/24 08:24 PHQ-9: PHQ-9 Score PHQ-9: Total score 19 11/29/24 09:45 Depression Screening Interpretation: Positive Depression Screening Follow-up: Existing condition and In treatment Thrive Assessment: Date of Thrive Assessment Date Thrive assessed 02/12/24 11/29/24 08:24 Currently or been in a relationship where the following occur: No concerns reported Const Other: General: no acute distress and well developed Nutritional Appearance: well nourished Orientation/consciousness: patient oriented x3 HENMT Head: Yes normocephalic and Yes atraumatic Eyes General: appearance normal, both eyes and all related structures Pupils: Equal, round and reactive pupils present EOM: EOMs intact bilaterally Resp Effort & Inspection: normal respiratory effort Auscultation: clear to auscultation bilaterally Cardio Rate: regular rate Rhythm: regular rhythm Heart sounds: S1 normal heart sound present, S2 normal heart sound present, no gallops, no murmurs and no rubs GI Palpation (GI): No Abdominal aortic bruit present, Soft to palpation, nontender, No hepatosplenomegaly present and No Rebound tenderness present Auscultation: normal bowel sounds General: Yes no CVA tenderness Back/Spine/Pelvis Back: no CVA tenderness Cervical Spine: cervical ROM normal and No Cervical spine tenderness Thoracic/Lumbar Spine: thoraco-lumbar ROM normal, No pain with thoraco-lumbar ROM, No thoracic spinal tenderness and No lumbar spinal tenderness Extrem General: Yes normal to inspection, No edema and No calf tenderness Skin General: warm and dry. Normal skin color. Normal skin turgor Neuro General: patient oriented x3, gait normal and no focal neuro deficit Cranial nerves: Yes Equal, round and reactive pupils present Cognition (Neuro): normal cognition Gait exam (Neuro): Normal gait present Sensory Exam: No Sensory deficit (Neuro) Psych Appearance: grossly normal Affect: normal affect Attitude: cooperative Thought process: Normal thought process present Coding Level of Care Code Est Pt Level 4 (98938) Diagnoses Anxiety and depression F41.9; F32.A Dementia F03.90 Primary hypertension I10 Hypertension type: primary hypertension Additional Codes CORBIN-7 Assessment Billing - CORBIN-7 Assessment Tool: CORBIN-7 Assessment 21202 ([id number]) PHQ-9 - 12889 - PHQ-9 Billing: Yes ([id number]) Assessment & Plan Assessment & Plan (1) Anxiety and depression: Code(s): F41.9 - Anxiety disorder, unspecified; F32.A - Depression, unspecified Category: Medical Plan: He notes that I can't remember anything and feels frustrated when he cannot remember or do things. He reports intermittent tremors of both hands. Vin miller his caregiver, patient does not remember to take his medications; His caregiver has been helping with his medication regimen. His caregiver also notes that the patient's sleep is poor at night and is tired throughout the day. Also, his food intake has been poor. Patient's caregiver requests care home for medication management/administration. PHQ-9 and CORBIN-7 scores revealed moderately severe depression and severe anxiety respectively. Trazodone 25 mg at bedtime ordered for sleep. Instructed on importance of adequate nutrition. Ensure ordered for nutritional supplement. Nursing reviewed/reconciled medications with patient's caregiver. Referred to [facility] for care home visit for medication management/administration. Continue current treatment regimen. Follow-up in 1 month or sooner with worsening or new symptoms. Verbalized understanding and agreed with treatment plan. (2) Dementia: Code(s): F03.90 - Unspecified dementia, unspecified severity, without behavioral disturbance, psychotic disturbance, mood disturbance, and anxiety Category: Medical Plan: Plan as above. (3) Hypertension: Code(s): I10 - Essential (primary) hypertension Category: Medical Qualifiers: Hypertension type: primary hypertension Qualified Code(s): I10 - Essential (primary) hypertension Plan: Blood pressure is 110/61, within goal of less than 140/90. Continue current treatment regimen. Will continue to monitor. Verbalized understanding and agreed with the plan. Orders: Referrals [facility] Referral E55.9 - Vitamin D deficiency, unspecified, E78.00 - Pure hypercholesterolemia, unspecified, F03.90 - Unspecified dementia, unspecified severity, without behavioral disturbance, psychotic disturbance, mood disturbance, and anxiety, F32.A - Depression, unspecified, F41.9 - Anxiety disorder, unspecified, G47.00 - Insomnia, unspecified, I10 - Essential (primary) hypertension, I48.91 - Unspecified atrial fibrillation, R26.89 - Other abnormalities of gait and mobility Medications: New trazodone 25 mg (1/2 x 50 mg) PO BEDTIME PRN 30 tabs 3RF sleep 30 days food supplemt, lactose-reduced (Ensure oral liquid) 1 bottle 3 times daily as needed; 5,688 mL 11RF 30 days Refilled lorazepam (Ativan) 0.5 mg PO BID PRN 20 tabs 0RF anxiety
--- OUTSIDE RECORDS SUMMARY | 2024-11-29 08:22 | XMS_ITS | Clinical Summary ---
Author Organization [facility] Address [address] [place] [address] Phone Care Team Providers Care Coke Loader Name Role Phone George Spring CNP Primary Care Provider [phone] Allergies Active Allergy Reactions Criticality Noted Date [...] complete this topic Insurance [employer] Care Teams Coke Loader Relationship Specialty Start Date End Date George Spring CNP [address] [place] [address] PCP - General 04/09/22
[2024-11-29 08:28] VITALS: BP 110/61; PULSE 54; RESP 16; TEMP 36.5; O2SAT 99; BMI 23.4
== END 2024-11-29 09:47 | disposition home or self-care (01) ==
LOC: HO.HMCFM 08:17
PROVIDERS: PCP Nurse Practitioner Family; Visit Provider Nurse Practitioner Family
DX: F41.9 Anxiety disorder, unspecified (principal); F32.A Depression, unspecified; F03.90 Unspecified dementia, unspecified severity, without behavioral disturbance, psychotic disturbance, mood disturbance, and anxiety; I10 Essential (primary) hypertension

== ENCOUNTER → 2024-11-29 08:16 | Outpatient (BNVA) | payer OTHER, SELFPAY | PROVIDERS: PCP Nurse Practitioner Family; Visit Provider Nurse Practitioner Family | DX: I10 Essential (primary) hypertension (principal); F41.9 Anxiety disorder, unspecified; F32.A Depression, unspecified; F03.90 Unspecified dementia, unspecified severity, without behavioral disturbance, psychotic disturbance, mood disturbance, and anxiety; E55.9 Vitamin D deficiency, unspecified; E78.00 Pure hypercholesterolemia, unspecified; I48.91 Unspecified atrial fibrillation; R26.89 Other abnormalities of gait and mobility | CPT/HCPCS: 96127 ==

== ENCOUNTER 2024-12-22 13:11 | Outpatient (AMB) | payer OTHER, SELFPAY ==
--- NOTE | 2024-12-22 13:22 | MHC.OFFWIV ---
Intake Vital Signs 12/22/24 13:23 Height 5 ft 8 in BMI Reason not done Patient refused/unable BP 100/60 Blood Pressure Location Lt brachial Position Sitting Pulse 58 Pulse Source Pulse Oximeter Temp 97.4 F Temp Source Oral Pulse Oximetry (%) 96 Oxygen Delivery Method Room Air Intake Visit Reasons: EP-dizziness, nausea, diarrhea, tiredness, weak Intake Note: pt is here for c/o dizziness, tremors, diarrhea, since his last pcp appt on 11/29/24. denies any fever Patient Tobacco Use Status: Former Tobacco user Allergies tamsulosin Allergy (Unknown, Verified 12/22/24 13:23) dizziness, weakness Do you need a note to return to daycare/school/sports/work: No HPI HPI Comments History of Present Illness Details 84 y/o Male patient presents to the walk-in clinic with c/o fatigue, weakness, dizziness, tremors, diarrhea, poor appetite, and dark urine with foul odor since 11/29/24. Denies fevers or chills. Reports nausea and sensitivity to food smells; unable to tolerate or keep food down. Reports liquid diarrhea occurring every few hours. Denies hematuria, dysuria, or other urinary symptoms. History provided mostly by mortgage loan specialist due to patient?s dementia and movement disorder associated with memory changes. Has follow-up scheduled with PCP on 01/02. Patient was previously evaluated by GI, last seen in 2023. COUNT INCLUDES [facility] Medical History (Updated 12/22/24 @ 14:03 by Lucina Barrera NP) Dark urine Nausea vomiting and diarrhea BPH (benign prostatic hyperplasia) Elevated cholesterol Chronic renal insufficiency Atrial fibrillation Pre-diabetes Anxiety Depression Movement disorder Thrombocytopenia Cognitive changes Lumbar spinal stenosis Memory deficit Hypertension Erectile dysfunction Feeling of incomplete bladder emptying Post-void dribbling Weak urinary stream Nocturia Elevated PSA Surgical History Hx of inguinal hernia repair Hx of arthroscopy of right knee Hx of colonoscopy Family History Father Prostate cancer Social History Household Members: Friend(s) Housing: Apartment Are you a primary healthcare specialist to a significant other at home: No Do you presently have visiting nurse or other home services: No Alcohol intake: current Alcohol intake frequency: holidays/special occasions only Patient Tobacco Use Status: Former Tobacco user Tobacco use type: Cigarette Years Smoked: 20 e-Cigarette/Vaping Use: Never Used Second Hand Smoke Exposure: No service: No Current occupational status: retired Current occupational exposures/hazards: No Sexual orientation: Unable to collect Gender identity: Unable to collect Cognitive needs: Yes (pt uses a cane) Hearing needs: Yes Vision needs: Yes Review of Systems Const All systems reviewed & are unremarkable except as noted in HPI and below Physical Exam Vital Signs: Last Vital Signs Temp 97.4 F 12/22/24 13:23 Pulse 58 12/22/24 13:23 BP 100/60 12/22/24 13:23 Pulse Ox 96 12/22/24 13:23 Oxygen Delivery Method Room Air 12/22/24 13:23 Const General: no acute distress Nutritional Appearance: well nourished Orientation/consciousness: patient oriented x3 Resp Effort & Inspection: normal respiratory effort Cardio Rhythm: regular rhythm GI Other: Soft, mild diffuse tenderness. No rebound or guarding. Bowel sounds present. Neuro General: patient oriented x3 Psych Speech and movement: Normal speech and movement present Results AMB Urinalysis, Automated UA Leukoctes 0 Pawan/uL Last Edit by Liban Salcedo CMA on 12/22/24 14:25 UA Nitrite Negative Last Edit by Liban Salcedo CMA on 12/22/24 14:25 UA Urobilinogen 0.2 mg/dL Last Edit by Liban Salcedo CMA on 12/22/24 14:25 UA Protein 30 mg/dL Last Edit by Liban Salcedo CMA on 12/22/24 14:25 UA pH 6.0 Last Edit by Liban Salcedo CMA on 12/22/24 14:25 UA Blood 0 Damien/uL Last Edit by Liban Salcedo CMA on 12/22/24 14:25 UA Specific Murphys 1.025 Last Edit by Liban Salcedo CMA on 12/22/24 14:25 UA Ketone Negative Last Edit by Liban Salcedo CMA on 12/22/24 14:25 UA Bilirubin 0 mg/dL Last Edit by Liban Salcedo CMA on 12/22/24 14:25 UA Glucose 0 mg/dL Last Edit by Liban Salcedo CMA on 12/22/24 14:25 Results Reviewed Results Reviewed: Laboratory Last Values Urine pH (Auto) 6.0 12/22/24 14:23 Specific Murphys (Auto) 1.025 12/22/24 14:23 Urine Protein (Auto) 30 mg/dL 12/22/24 14:23 Glucose (UA)(Auto) 0 mg/dL 12/22/24 14:23 Urine Ketones (Auto) Negative 12/22/24 14:23 Urine Blood (Auto) 0 Damien/uL 12/22/24 14:23 Urine Nitrite (Auto) Negative 12/22/24 14:23 Urine Bilirubin (Auto) 0 mg/dL 12/22/24 14:23 Urine Urobilinogen (Auto) 0.2 mg/dL 12/22/24 14:23 Leukocyte Esterase (Auto) 0 Pawan/uL 12/22/24 14:23 Assessment & Plan Assessment & Plan (1) Nausea vomiting and diarrhea: Code(s): R11.2 - Nausea with vomiting, unspecified; R19.7 - Diarrhea, unspecified Plan: Dehydration secondary to diarrhea and poor oral intake Acute Gastroenteritis (viral or bacterial etiology vs medication-related), Ordered Stool Culture. Dementia with associated movement disorder ? chronic, stable. [place] diet, advance as tolerated. PCP appointment 01/02; sooner if labs abnormal or condition deteriorates GI re-evaluation if stool/lab results abnormal or symptoms persist. (2) Dark urine: Code(s): R82.998 - Other abnormal findings in urine Plan: Urinalysis negative. Hydrate with plenty fluids. Orders: Orders AMB Urinalysis Automated Today Z13.9 - Encounter for screening, unspecified GI Panel Today R11.2 - Nausea with vomiting, unspecified, R19.7 - Diarrhea, unspecified Medications: New loperamide (Imodium A-D) Administer after each loose stool until symptoms controlled; do not exceed 8 mg per 24 hrs 2 mg PO Q4H PRN 30 caps 0RF loose stool R11.2 - Nausea with vomiting, unspecified, R19.7 - Diarrhea, unspecified Coding Level of Care Code Est Pt Level 4 (78682) Diagnoses Nausea vomiting and diarrhea R11.2; R19.7 Dark urine R82.998 Time Spent (min) 20
[2024-12-22 13:23] VITALS: BP 100/60; PULSE 58; TEMP 36.3; O2SAT 96
--- OUTSIDE RECORDS SUMMARY | 2024-12-22 16:33 | XMS_ITS | Clinical Summary ---
Author Organization [facility] Address [address] [place] [address] Phone Care Team Providers Care Plant Safety Leader Name Role Phone George Spring CNP Primary Care Provider Allergies Active Allergy Reactions Criticality Noted Date [...] complete this topic Insurance [employer] Care Teams Plant Safety Leader Relationship Specialty Start Date End Date George Spring CNP [address] [place] [address] PCP - General 04/09/22
== END 2024-12-22 14:34 | disposition home or self-care (01) ==
PROVIDERS: PCP Nurse Practitioner Family; Visit Provider Nurse Practitioner Family
DX: R11.2 Nausea with vomiting, unspecified (principal); R19.7 Diarrhea, unspecified; R82.998 Other abnormal findings in urine; Z13.9 Encounter for screening, unspecified

== ENCOUNTER → 2024-12-22 13:11 | Outpatient (BNVA) | payer OTHER, SELFPAY | PROVIDERS: PCP Nurse Practitioner Family; Visit Provider Nurse Practitioner Family | DX: R11.2 Nausea with vomiting, unspecified (principal); R19.7 Diarrhea, unspecified; R82.998 Other abnormal findings in urine | CPT/HCPCS: 81003 ==

== ENCOUNTER 2025-01-02 12:21 | Outpatient (AMB) | payer OTHER, SELFPAY ==
--- NOTE | 2025-01-02 12:23 | A.OFFPC_ITS ---
Vital Signs 01/02/25 12:29 01/02/25 12:46 Height 5 ft 8 in Weight 158 lb 4 oz BMI 24.1 BP 136/62 110/60 Blood Pressure Location Lt brachial Lt brachial Position Sitting Sitting Respiration 16 Pulse 47 L Pulse Source Palpation Temp 97.4 F Temp Source Oral Pulse Oximetry (%) 99 Oxygen Delivery Method Room Air Intake Visit Reasons: 1 mos anxiety, depression, dementia Intake Note: patient here for 1 month follow up on anxiety, depression and dementia Checkman Required: No Allergies tamsulosin Allergy (Unknown, Verified 01/02/25 12:42) dizziness, weakness Medication List - Last Reconciled 01/02/25 by George Spring CNP amlodipine 10 mg PO DAILY 90 days apixaban (Eliquis) 5 mg PO BID atenolol 50 mg PO DAILY atorvastatin 80 mg PO DAILY 90 days buspirone 10 mg PO BID 90 days cetirizine (Zyrtec) 10 mg PO DAILY 30 days cholecalciferol (vitamin D3) 50 mcg PO DAILY 90 days donepezil 23 mg PO BEDTIME 90 days food supplemt, lactose-reduced (Ensure oral liquid) 1 bottle 3 times daily as needed; 30 days irbesartan 300 mg PO DAILY loperamide (Imodium A-D) 2 mg PO Q4H PRN lorazepam (Ativan) 0.5 mg PO BID PRN miscellaneous medical supply 1 cane for ambulation pymtsracmlle-doqb-tfkis acid 18-400 mg-mcg (Centrum Complete) 1 tab PO DAILY psyllium husk (Metamucil) 1 tbsp PO BID 30 days sertraline 100 mg PO DAILY trazodone 25 mg (1/2 x 50 mg) PO BEDTIME PRN 30 days Tobacco use date assessed: 01/02/25 Fall risk assessment: 2 + Falls in past year Last assessed Fall Risk: 01/02/25 Dental Screening Dental Screen Date: 01/02/25 Did you have a dental visit in the last 12 months?: Yes Did you have a dental problem in the last 6 months where you did not have access to dental care?: No Was dental information given to patient?: Patient has dentist HPI HPI Comments History of Present Illness Details 84-year-old male, accompanied by is career orientation teacher, presents for anxiety, depression, and dementia follow-up. He admits to taking his medications as prescribed without adverse reactions. According to his caregiver, patient stopped taking all of his medications except amlodipine, Eliquis, atenolol, and buspirone about a week ago. She notes that that our [facility] nurse instructed the patient to take only those medications. He notes that I feel like crap. I lost my appetite, nothing tastes good. Per his caregiver, he has poor appetite for the past one month. He drinks ensure supplement twice daily. He reports swelling to both ankles for the past one month. He notes that my mood sucks. I am not a happy camper. I can't do what i want to do. Nothing tastes good. He has been ready a lot more lately. [facility] Medical History (Updated 01/02/25 @ 13:59 by George Spring CNP) Dark urine Nausea vomiting and diarrhea BPH (benign prostatic hyperplasia) Elevated cholesterol Chronic renal insufficiency Atrial fibrillation Pre-diabetes Anxiety Depression Movement disorder Thrombocytopenia Cognitive changes Lumbar spinal stenosis Memory deficit Hypertension Erectile dysfunction Feeling of incomplete bladder emptying Post-void dribbling Weak urinary stream Nocturia Elevated PSA Surgical History Hx of inguinal hernia repair Hx of arthroscopy of right knee Hx of colonoscopy Family History Father Prostate cancer Social History Household Members: Friend(s) Housing: Apartment Are you a primary career orientation teacher to a significant other at home: No Do you presently have visiting nurse or other home services: No Alcohol intake: current Alcohol intake frequency: holidays/special occasions only Patient Tobacco Use Status: Former Tobacco user Tobacco use type: Cigarette Years Smoked: 20 e-Cigarette/Vaping Use: Never Used Second Hand Smoke Exposure: No service: No Current occupational status: retired Current occupational exposures/hazards: No Sexual orientation: Unable to collect Gender identity: Unable to collect Cognitive needs: Yes (pt uses a cane) Hearing needs: Yes Vision needs: Yes Questionnaire PHQ-9 Over the last 2 weeks, how often have you been bothered by any of the following problems? 1. Little interest or pleasure in doing things: several days 2. Feeling down, depressed, or hopeless: not at all 3. Trouble falling or staying asleep, or sleeping too much: not at all 4. Feeling tired or having little energy: several days 5. Poor appetite or overeating: several days 6. Feeling bad about yourself - or that you are a failure or have let yourself or your family down: several days 7. Trouble concentrating on things, such as reading the newspaper or watching television: not at all 8. Moving or speaking so slowly that other people could have noticed. Or the opposite - being so fidgety or restless that you have been moving around a lot more than usual: not at all 9. Thoughts that you would be better off or of hurting yourself in some way: not at all Total score: 4 Depression Screening Interpretation: Negative Depression Screening Done: Yes Source: Developed by Drs. Domo Mckinley, Cindi Mcfadden, Randy Sotelo and colleagues, with an educational petey from [employer]. Thrive Questionnaire Date Thrive assessed: 02/12/24 I am a: Patient What is your living situation today?: I have a steady place to live Within the past 12 months, did the food you bought not last and you didn't have the money to get more?: Never true Within the past 12 months, did you worry whether your food would run out before you got money to buy more?: Never true Do you have trouble paying for medicines?: No Do you have trouble getting transportation to medical appointments?: No Do you have trouble paying your heating and electricity bill?: No Do you have trouble taking care of your child, family member or friend?: No Do you have trouble with day-to-day activities such as bathing, preparing meals, shopping, managing finances, etc.?: No Are you currently unemployed and looking for a job?: No Are you interested in more education?: No Please select the resources that you would like help with: None Currently or been in a relationship where the following occur: No concerns reported THRIVE Score: 0 CORBIN-7 AMB Questionnaire CORBIN-7 Date CORBIN - 7 assessed: 01/02/25 Feeling nervous, anxious, or on edge: 0 = Not at all Not being able to stop or control worryin = Not at all Worrying too much about different things: 1 = Several days Trouble relaxin = Not at all Being so restless that it is hard to sit still: 0 = Not at all Becoming easily annoyed or irritable: 1 = Several days Feeling afraid as if something awful might happen: 0 = Not at all Total CORBIN-7 score (0-4 normal; 5-9 mild; 10-14 moderate; 15-21 severe): 2 Source: Developed by Drs. Domo Mckinley, Cindi Mcfadden, Randy Sotelo and colleagues, with an educational petey from [employer]. CORBIN-7 Assessment Billing CORBIN-7 Assessment Tool: CORBIN-7 Assessment 45072 Review of Systems Const Details: Const Denies chills, Denies fatigue, Denies fever(s), Denies headache(s) and Denies weakness ENT Denies dizziness and Denies headache(s) Card Denies chest pain, Denies lightheadedness, Denies dyspnea and Denies other (Palpitations) Resp Denies cough, Denies dyspnea, Denies wheezing and Denies other ( shortness of breath) GI Denies abdominal pain, Denies melena, Denies hematochezia, Denies change in bowel habits, Denies dyspepsia and Denies nausea Denies hematuria and Denies dysuria Musc Reports edema, Denies abnormal gait, Denies myalgias, Denies arthralgias, Denies numbness and Denies tingling Skin/Breast Denies rash, Denies unusual bruising and Denies wounds Neuro Denies abnormal gait, Denies dizziness, Denies headache(s), Denies memory loss, Denies numbness, Denies Sensory deficit (Neuro), Denies tingling and Denies weakness Psych Reports anxiety, Reports depression, Denies memory loss Endo Denies cold intolerance, Denies fatigue, Denies heat intolerance, Denies polydipsia and Denies polyuria Aller/Immun Denies wheezing Physical exam (Primary Care) BMI result Body Mass Index 24.1 Tobacco/Smoking Status: Tobacco use Status Tobacco use date assessed 01/02/25 01/02/25 12:33 Patient Tobacco Use Status Former Tobacco user 01/02/25 12:26 Tobacco use type Cigarette 01/02/25 12:26 e-Cigarette/Vaping Use Never Used 01/02/25 12:26 PHQ-9: PHQ-9 Score PHQ-9: Total score 4 01/02/25 12:39 Depression Screening Interpretation: Negative Thrive Assessment: Date of Thrive Assessment Date Thrive assessed 02/12/24 01/02/25 12:26 Currently or been in a relationship where the following occur: No concerns reported Const Other: General: no acute distress and well developed Nutritional Appearance: well nourished Orientation/consciousness: patient oriented x3 HENMT Head: Yes normocephalic and Yes atraumatic Eyes General: appearance normal, both eyes and all related structures Pupils: Equal, round and reactive pupils present EOM: EOMs intact bilaterally Resp Effort & Inspection: normal respiratory effort Auscultation: clear to auscultation bilaterally Cardio Rate: regular rate Rhythm: regular rhythm Heart sounds: S1 normal heart sound present, S2 normal heart sound present, no gallops, no murmurs and no rubs GI Palpation (GI): No Abdominal aortic bruit present, Soft to palpation, nontender, No hepatosplenomegaly present and No Rebound tenderness present Auscultation: normal bowel sounds General: Yes no CVA tenderness Back/Spine/Pelvis Back: no CVA tenderness Cervical Spine: cervical ROM normal and No Cervical spine tenderness Thoracic/Lumbar Spine: thoraco-lumbar ROM normal, No pain with thoraco-lumbar ROM, No thoracic spinal tenderness and No lumbar spinal tenderness Extrem General: Yes normal to inspection, No calf tenderness, significant nonpitting edema to both ankles, no erythema or overt trauma/injury Skin General: warm and dry. Normal skin color. Normal skin turgor Neuro General: patient oriented x3, gait normal and no focal neuro deficit Cranial nerves: Yes Equal, round and reactive pupils present Cognition (Neuro): normal cognition Gait exam (Neuro): Normal gait present Sensory Exam: No Sensory deficit (Neuro) Psych Appearance: grossly normal Mood: sucks Affect: Constricted affect Attitude: cooperative Thought process: Normal thought process present Coding Level of Care Code Est Pt Level 4 (86129) Diagnoses Primary hypertension I10 Hypertension type: primary hypertension Anxiety and depression F41.9; F32.A Dementia F03.90 Swelling of both ankles M25.471; M25.472 Additional Codes CORBIN-7 Assessment Billing - CORBIN-7 Assessment Tool: CORBIN-7 Assessment 32745 ([id number]) Assessment & Plan Assessment & Plan (1) Hypertension: Code(s): I10 - Essential (primary) hypertension Category: Medical Qualifiers: Hypertension type: primary hypertension Qualified Code(s): I10 - Essential (primary) hypertension Plan: Blood pressure is 110/60, within goal of less than 140/90. Continue current treatment regimen. Low-sodium diet encouraged. Follow-up in 1 month for MEIR, hypertension, anxiety, depression, and dementia with a new PCP within the practice. Return sooner with symptoms or concerns. Verbalized understanding and agreed with the plan. Spoke with the community health nurse who clarified that, last week, when patient reported nausea, she instructed patient's caregiver to prioritize his medications and ensures he takes all but his supplement medications. Patient is encouraged to take all of his medications as prescribed. MOLST form completed today and scanned in patient's chart. (2) Anxiety and depression: Code(s): F41.9 - Anxiety disorder, unspecified; F32.A - Depression, unspecified Category: Medical Plan: He notes that my mood sucks. I am not a happy camper. I can't do what i want to do. Nothing tastes good. He has been ready a lot more lately. PHQ-9 and CORBIN-7 scores are normal. Advised to start taking her medications for mood and dementia. Follow-up as planned. Verbalized understanding and agreed with the plan. (3) Dementia: Code(s): F03.90 - Unspecified dementia, unspecified severity, without behavioral disturbance, psychotic disturbance, mood disturbance, and anxiety Category: Medical Plan: Plan as above. (4) Swelling of both ankles: Code(s): M25.471 - Effusion, right ankle; M25.472 - Effusion, left ankle Category: Medical Plan: He reports swelling to both ankles for the past one month. Significant nonpitting edema to both ankles. Likely adverse reaction from amlodipine. Amlodipine discontinued at this time. Encouraged to elevate both legs to reduce edema. Follow-up as planned. Verbalized understanding and agreed with the treatment plan. Medications: Discontinued amlodipine Discontinued Reason: Doctor's Order 10 mg PO DAILY 90 days 90 tabs 1RF
[2025-01-02 12:29] VITALS: BP 136/62; PULSE 47; RESP 16; TEMP 36.3; O2SAT 99; BMI 24.1
[2025-01-02 12:46] VITALS: BP 110/60
== END 2025-01-02 14:00 | disposition home or self-care (01) ==
LOC: HO.HMCFM 12:22
PROVIDERS: PCP Nurse Practitioner Family; Visit Provider Nurse Practitioner Family
DX: I10 Essential (primary) hypertension (principal); F41.9 Anxiety disorder, unspecified; F32.A Depression, unspecified; F03.90 Unspecified dementia, unspecified severity, without behavioral disturbance, psychotic disturbance, mood disturbance, and anxiety; M25.471 Effusion, right ankle; M25.472 Effusion, left ankle

== ENCOUNTER → 2025-01-02 12:21 | Outpatient (BNVA) | payer OTHER, SELFPAY | PROVIDERS: PCP Nurse Practitioner Family; Visit Provider Nurse Practitioner Family | DX: I10 Essential (primary) hypertension (principal); F41.9 Anxiety disorder, unspecified; F32.A Depression, unspecified; F03.90 Unspecified dementia, unspecified severity, without behavioral disturbance, psychotic disturbance, mood disturbance, and anxiety; M25.471 Effusion, right ankle; M25.472 Effusion, left ankle; Z13.31 Encounter for screening for depression; Z13.39 Encounter for screening examination for other mental health and behavioral disorders; Z87.891 Personal history of nicotine dependence; Z79.899 Other long term (current) drug therapy | CPT/HCPCS: 96127 ==

== ENCOUNTER 2025-01-09 14:30 | Outpatient (REF) | payer OTHER, SELFPAY ==
--- NOTE | ~2025-01-09 | US_ITS ---
EXAMINATION: US PELVIS LIMITED (BLADDER) CLINICAL INFORMATION: Poor urinary stream. COMPARISON: None available. TECHNIQUE: Real-time imaging of the bladder and prostate. FINDINGS: BLADDER: Partially distended and normal. Bilateral ureteral jets are demonstrated. Prevoid bladder volume is 77 mL. Postvoid bladder volume is 2 mL. No wall thickening or bladder mass identified. Estimated prostate volume is normal at 20.0 mL. US/US bladder IMPRESSION: Normal urinary bladder and prostate.. Electronically signed by: Maciej Anguiano MD 01/09/2025 04:48 PM EST
[2025-01-09 16:05] LABS: PSA,Total (Free>4and<10) 8.11 ng/mL (0.00-4.00)
--- OUTSIDE RECORDS SUMMARY | 2025-01-09 17:49 | XMS_ITS | Clinical Summary ---
Author Organization [facility] Address [address] [place] [address] Phone Care Team Providers Care Riveting Machine Operator Automatic Name Role Phone George Spring CNP Primary Care Provider [phone] Allergies Active Allergy Reactions Criticality Noted Date [...] complete this topic Insurance [employer] Care Teams Riveting Machine Operator Automatic Relationship Specialty Start Date End Date George Spring CNP [address] [place] [address] PCP - General 04/09/22
[2025-01-11 12:13] LABS: Free Prostate Spec Ag 2.2 ng/mL; Percent Free Prostate Spec Ag 24 % (calc) (>25)
== END 2025-01-09 14:31 | disposition home or self-care (01) ==
LOC: HO.US 14:30
PROVIDERS: PCP Nurse Practitioner Family; Visit Provider Urology
DX: R97.20 Elevated prostate specific antigen [PSA] (principal); R39.12 Poor urinary stream; Z12.5 Encounter for screening for malignant neoplasm of prostate
CPT/HCPCS: 36415; 76857; 84153; 84154

== ENCOUNTER → 2025-01-09 14:54 | Outpatient (BNV) | payer OTHER, SELFPAY | PROVIDERS: PCP Nurse Practitioner Family; Visit Provider Radiology Diagnostic Radiology | DX: R39.12 Poor urinary stream (principal) | CPT/HCPCS: 76857 ==

== ENCOUNTER 2025-01-13 09:01 | Outpatient (AMB) | payer OTHER, SELFPAY ==
--- NOTE | 2025-01-13 08:59 | A.OFFVIS_ITS ---
Intake Visit Reasons: 6M US/PSA(set) Intake Note: Reason for Visit: Telehealth Ultrasound/PSA Results Urology Meds: None Blood Thinners: Eliquis Labs: PSA Imaging: Renal Ultrasound- 01/09/2025 Last PVR: 18ml Power Lineworker Required: No Allergies tamsulosin Allergy (Unknown, Verified 01/13/25 09:02) dizziness, weakness HPI Comments Details: Olman SALGADO is a very pleasant male. He is a patient of Dr. Spring. He is seen in the office today for the following urologic conditions. - lower urinary tract symptoms Telemedicine Evaluation 15 min Consultation [email or web address] Video 6m f/u tele BRETT 3+ normal PSA continues to slowly rise off finasteride but high free% Starting to have some degree of bladder instability but not interested in medications - bladder ultrasound showed complete emptying Urinary Symptoms Review - No mentioned urinary incontinence or specific frequency issues - Free PSA percentage is High - Noted to have a large prostate - No specific reports of pain or pressure symptoms during urination Lower Urinary Tract Symptoms:? Current visit is for?further evaluation of, lower urinary tract symptoms, predominate obstructive symptoms ?- father with prostate cancer.? Prior treatments include? - Had been managed for 3 years with another urologist. Treatment focused on terazosin and oxybutynin. No estimate of prostate size. Had previously been on finasteride but experienced declined libido. ?06/26 , laser procedure.? Prostate Symptom Score?02/26 , Moderate (9-19), Bother 3 ? Symptoms include?02/26 , incomplete emptying, weak stream, nocturia (>2), urgency, and are progressing.? Results from testing include? cystoscopy ?high riding bladder neck (median bar) trabeculations 03/29 ? renal/bladder us ?Yes ? date ?03/27/2017 thickend wall with trabeculations ? PVR ?26 ? prostate size ?50 ? Prior Prostate Score?unknown.? PSA?01/26 1.4 - 08/29 3.7, 03/02 3.6, 08/30 3.7, 08/01 4.6 F 37%, 04/04 13, 08/02 5.0 32% free, 01/02 5.6 33%, 07/03 7.3 30%, 02/02 9.1 25% ? Prostate volume?50+gm.? Testing at next visit will include?bladder scan.? Treatment plan?Continue with surveillance. [facility] Medical History Dark urine Nausea vomiting and diarrhea BPH (benign prostatic hyperplasia) Elevated cholesterol Chronic renal insufficiency Atrial fibrillation Pre-diabetes Anxiety Depression Movement disorder Thrombocytopenia Cognitive changes Lumbar spinal stenosis Memory deficit Hypertension Erectile dysfunction Feeling of incomplete bladder emptying Post-void dribbling Weak urinary stream Nocturia Elevated PSA Surgical History Hx of inguinal hernia repair Hx of arthroscopy of right knee Hx of colonoscopy Family History Father Prostate cancer Social History Household Members: Friend(s) Housing: Apartment Are you a primary patient care technician to a significant other at home: No Do you presently have visiting nurse or other home services: No Alcohol intake: current Alcohol intake frequency: holidays/special occasions only Patient Tobacco Use Status: Former Tobacco user Tobacco use type: Cigarette Years Smoked: 20 e-Cigarette/Vaping Use: Never Used Second Hand Smoke Exposure: No service: No Current occupational status: retired Current occupational exposures/hazards: No Sexual orientation: Unable to collect Gender identity: Unable to collect Cognitive needs: Yes (pt uses a cane) Hearing needs: Yes Vision needs: Yes Review of Systems Const All systems reviewed & are unremarkable except as noted in HPI and below Reports no additional complaints Resp Reports no additional complaints GI Reports no additional complaints Reports as per HPI Musc Reports no additional complaints Physical Exam Telemedicine evaluation Appropriate responses Regular breathing rate and rhythm HEENT Head: Yes normal to inspection Ears: hearing grossly normal bilaterally Eyes General: appearance normal, both eyes and all related structures Neck Neck: Yes normal visual inspection Chest Chest palpation & inspection: normal inspection of the chest Resp Effort & Inspection: normal respiratory effort and able to speak in complete sentences Telehealth Telehealth Telehealth Platform: [email or web address] Location of provider rendering services: practice address Location of patient: address on file Patient Identification confirmed using: Name, : Yes Telehealth method: video Patient verbally consented to treatment: Yes Patient verbally consented to billing insurance company: Yes Patient informed of any privacy concerns related to visit: Yes Minutes spent on Phone/Video with Pt.: 15 Assessment & Plan Assessment & Plan (1) Elevated PSA: Code(s): R97.20 - Elevated prostate specific antigen [PSA] Category: Medical (2) BPH loc w urin obs/LUTS: Code(s): N40.1 - Benign prostatic hyperplasia with lower urinary tract symptoms Category: Medical Plan Elevated PSA Six-month follow-up repeat labs Patient Instructions: This note is constructed using voice recognition software. While every effort has been made to ensure accuracy meter installer and remover errors may have been included. Imaging studies, laboratory and physical exam results were discussed and reviewed in detail. No major barriers to patient understanding were identified. An opportunity to ask questions regarding the treatment plan was provided. All questions were answered. The patient expressed understanding and agreement with the above treatment plan. The patient is aware they should contact our office by phone for worsening of their current condition or the appearance of new urologic symptoms. Compliance is encouraged with any medications and followup testing that is ordered. It is a privilege to participate in the urologic care of your patient. If you have any questions or concerns regarding treatment for the above conditions, or other urologic issues, please do not hesitate to contact me. The office telephone contact is [phone]. Sincerely, Dr Osvaldo De La Rosa MD, [facility] - Urology Compassionate Specialist Care for the Genitourinary System Coding Level of Care Code Tele Est Pt Level 3 (92097) Complex visit Add On G2211 Diagnoses Elevated PSA R97.20 BPH loc w urin obs/LUTS N40.1
== END 2025-01-13 09:24 | disposition home or self-care (01) ==
LOC: HO.HUSH 09:01
PROVIDERS: PCP Nurse Practitioner Family; Visit Provider Urology
DX: R97.20 Elevated prostate specific antigen [PSA] (principal); N40.1 Benign prostatic hyperplasia with lower urinary tract symptoms
CPT/HCPCS: 99213